=== PATIENT | female | born 1935 | race Caucasian/White ===

== ENCOUNTER 2017-09-24 21:54 | Inpatient (IN) | payer MEDICARE ==
[~2017-09-24] VITALS: Ht 167.6 cm; Wt 119.0 kg
[2017-09-24 22:45] LABS: BASOPHILS # (AUTO) 0.1 (0.0-0.1); BASOPHILS % 0.4 % (0.0-1.0); EOSINOPHILS # (AUTO) 0.1 (0.0-0.4); EOSINOPHILS % 0.4 % (0.0-6.0); HEMATOCRIT 36.8 % (34.2-44.1); HEMOGLOBIN 11.8 g/dL (12.0-16.0); LYMPHOCYTES # (AUTO) 1.3 (1.0-3.2); LYMPHOCYTES % 8.9 % (18.0-39.1); MEAN CORPUSCULAR HEMOGLOBIN 27.8 pg (28-32); MEAN CORPUSCULAR HGB CONC 32.1 g/dL (31-35); MEAN CORPUSCULAR VOLUME 86.6 fL (81-99); MONOCYTES # (AUTO) 0.7 (0.2-0.8); MONOCYTES % 5.2 % (4.4-11.3); NEUTROPHILS # (AUTO) 11.7 (2.1-6.9); NEUTROPHILS % 83.3 % (38.7-80.0); PLATELET COUNT 204 x10e3/uL (140-360); RED BLOOD COUNT 4.25 x10e6/uL (3.6-5.1); RED CELL DISTRIBUTION WIDTH 15.5 % (11.7-14.4)
[2017-09-24 22:53] LABS: INR 1.15; PROTHROMBIN TIME 13.8 seconds (11.9-14.5)
[2017-09-24 22:54] LABS: PARTIAL THROMBOPLASTIN TIME 27.9 seconds (23.8-35.5)
[2017-09-24 23:03] LABS: ALBUMIN 3.8 g/dL (3.5-5.0); ALBUMIN/GLOBULIN RATIO 1.2 (0.8-2.0); ANION GAP 16.4 mmol/L (8-16); CALCIUM 9.5 mg/dL (8.4-10.2); CREATININE, SERUM 1.26 mg/dL (0.57-1.11); POTASSIUM 4.4 mmol/L (3.5-5.1)
[2017-09-24] MEDS ORDERED: TRAMADOL HCL 50 MG TAB ONE (23:06)
[2017-09-24 23:10] LABS: CREATINE KINASE MB 0.9 ng/mL (0-5.0)
--- NOTE | 2017-09-24 23:52 | Diagnostic Imaging Report ---
EXAM: CHEST SINGLE (PORTABLE), AP 1 view INDICATION: Shortness of breath COMPARISON: None FINDINGS: LINES/TUBES: None LUNGS: Bilateral perihilar predominant interstitial and alveolar opacities. PLEURA: Possible small left pleural effusion. HEART AND MEDIASTINUM: The cardiomediastinal silhouette is enlarged with central pulmonary vascular congestion. BONES AND SOFT TISSUES: No acute findings. IMPRESSION: Central pulmonary vascular congestion and early edema. Signed by: Dr. Sabrina Randhawa M.D. on 09/24/2017 11:48 PM
[2017-09-25] MEDS ORDERED: SODIUM CHLORIDE FLUSH 10 ML SYR INJ PRN (00:45)
[2017-09-25] MEDS ORDERED: DEXTROSE 50% SYRINGE 50 ML IV PRN (00:45)
[2017-09-25] MEDS ORDERED: AMLODIPINE-BEN1 EAC5 PO (00:49)
[2017-09-25] MEDS ORDERED: SIMVASTATIN20 MG PO (00:49)
[2017-09-25] MEDS ORDERED: ASPIR 8181 MG PO (00:49)
[2017-09-25] MEDS ORDERED: FUROSEMIDE40 MG PO (00:49)
[2017-09-25] MEDS ORDERED: CARVEDILOL12.5 MG PO (00:49)
[2017-09-25] MEDS ORDERED: NORCO 5-325 TA1 EACH PO (00:49)
[2017-09-25] MEDS ORDERED: GLIMEPIRIDE2 MG PO (00:49)
[2017-09-25] MEDS ORDERED: JANUVIA100 MG PO (00:49)
[2017-09-25] MEDS ORDERED: HYDRALAZINE HCL25 MG PO (00:49)
[2017-09-25] MEDS ORDERED: LEVOTHYROXINE50 MCG PO (00:49)
[2017-09-25] MEDS: FUROSEMIDE INJ 10 MG/ML 4 ML VIAL IV SCH ×3 (02:10→18:20)
[2017-09-25 02:57] LABS: CLARITY,URINE CLEAR (CLEAR); COLOR,URINE YELLOW (YELLOW)
[2017-09-25 02:58] LABS: BILIRUBIN,URINE NEGATIVE (NEGATIVE); KETONES,URINE NEGATIVE (NEGATIVE); LEUKOCYTE ESTERASE ,URINE NEGATIVE (NEGATIVE); NITRITE,URINE NEGATIVE (NEGATIVE); PROTEIN,URINE DIPSTICK 2+ (NEGATIVE); URINE UROBILINOGEN 0.2 mg/dL (0.2 - 1)
[2017-09-25] MEDS ORDERED: TRAMADOL HCL 50 MG TAB PO ONE (03:00)
[2017-09-25] MEDS ORDERED: TRAMADOL HCL 50 MG TAB PO PRN (03:00)
[2017-09-25 03:10] LABS: BACTERIA,URINE RARE /HPF; EPITHELIAL CELLS,URINE RARE /LPF; RBC,URINE 0-5 /HPF (0-5); WBC,URINE (MAN) 0-5 /HPF (0-5)
[2017-09-25] MEDS ORDERED: HYDRALAZINE HCL 20 MG/ML VIAL IV PRN (05:45)
[2017-09-25 06:26] LABS: CREATINE KINASE MB 0.9 ng/mL (0-5.0)
[2017-09-25] MEDS: INSULIN REGULAR, HUMAN 100 UNIT/1 ML 3ML VIAL SQ SCH ×4 (07:00→21:44)
[2017-09-25] MEDS: SITAGLIPTIN 100 MG TAB PO SCH (08:38)
[2017-09-25] MEDS: ASPIRIN 81 MG CHEW TAB PO SCH (08:38)
[2017-09-25] MEDS: GLIMEPIRIDE 2 MG TAB PO SCH ×2 (08:38→18:19)
[2017-09-25] MEDS: HYDRALAZINE HCL 25 MG TAB PO SCH ×3 (08:38→21:47)
[2017-09-25] MEDS: CARVEDILOL 12.5 MG TAB PO SCH ×2 (08:38→18:20)
[2017-09-25] MEDS: LEVOTHYROXINE SODIUM 50 MCG TAB PO SCH (08:38)
--- NOTE | 2017-09-25 09:10 | Diagnostic Imaging Report ---
PROCEDURE: CHEST SINGLE (PORTABLE) COMPARISON: 09/24/2017. INDICATIONS: CHF, SHORTNESS OF BREATH FINDINGS: See conclusion CONCLUSION: Interval improvement in pulmonary edema with reduction in perihilar airspace opacities. Trace left pleural effusion persists with left lower lobe airspace disease likely passive atelectasis. No new consolidations. Regional skeletal structures are intact. Dictated by: Clay Alexander M.D. on 09/25/2017 at 7:19 Electronically approved by: Clay Alexander M.D. on 09/25/2017 at 7:19
--- NOTE | 2017-09-25 10:41 | History and Physical ---
This is coverage for Dr. Mook Alvarez. PRIMARY CARE DOCTOR: Dr. Henao at [facility]. HISTORY: Mr. Barton is a pleasant 82-year-old female with shortness of breath. Shortness of breath occurred without clear incitement. This was on exertion. Onset about 2 days ago. There has been some increasing cough. She claims there is some sputum, but it is mostly clear or white. She came to emergency room, 94% oxygen saturation on room air, 1.3 creatinine, 14 white count. BNP was 149. Urinalysis was unremarkable. Patient had chest x-ray showing mild edema pattern and possible small left pleural effusion. She was admitted. She has already been given diuretics and having large urination. PAST MEDICAL HISTORY: Hypertension, diabetes, CVA with small right-sided hemiparesis, hypothyroid, hyperlipidemia, mild allergies. MEDICATIONS: Medication list reviewed per electronic record. ALLERGIES: CODEINE AND IODINE ARE CITED. SOCIAL HISTORY: No smoking, no drinking, no drugs. 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 FAMILY HISTORY: Noncontributory. REVIEW OF SYSTEMS GENERAL: No weight changes. OPHTHALMOLOGIC: No double vision. ENT: No dry mouth. ENDOCRINE: No recently overactive thyroid that she knows of. PULMONARY: No asthma. CARDIAC: No heart attacks. GI: No constipation. : No blood in urine. DERMATOLOGIC: No rashes. NEUROLOGIC: No seizures. OBJECTIVE VITALS: Afebrile. Vital signs noted per electronic record. GENERAL: No acute distress. Alert, calm, cooperative. HEENT: Normocephalic, atraumatic. NECK: Supple. Throat midline. LUNGS: Bilateral air entry. Few rales throughout. No wheezes. CARDIOVASCULAR: S1, S2. No murmurs, rubs, gallops. ABDOMEN: Soft, nontender. EXTREMITIES: No clubbing, no cyanosis. There is 3+ edema. INTEGUMENT: No rash, no purpura. LABS: Bicarbonate 25. Urinalysis unremarkable. Other labs per record. IMPRESSIONS AND PLAN 1. Abnormal chest radiography, bilateral interstitial opacities, treated for fluid overload. 2. Abnormal chest radiography, bilateral pulmonary opacities, cannot rule out pneumonitis. B-type natriuretic peptide was 149. 3. Obesity. 4. Leg edema. 5. Mild allergies. 6. Hypertension. 7. Diabetes. 8. Cerebrovascular accident and right hemiparesis, mild. 9. Hypothyroidism. 10. Hyperlipidemia. Will get cardiology to review the chance that this is cardiac. If the patient does not respond very rapidly to diuretics, we will escalate treatments for pneumonia. For the meantime, we have chosen close observation. Repeat a chest x-ray in the morning. Patient is recommended for polysomnography to rule out obstructive sleep apnea. Follow along closely and repeat electrolytes tomorrow. Thank you very much, Dr. Henao and Dr. Alvarez, for allowing me the chance to participate in the care of Ms. Barton. Do not hesitate to contact me if I can help in any way. Job#: [id number] JACOB
--- NOTE | 2017-09-25 11:04 | Cardiology Report ---
DATE OF STUDY: ECHOCARDIOGRAM M-MODE: Dilated left atrium. Left ventricular hypertrophy. Normal contractility. Normal mitral and aortic valves. No pericardial effusion. SECTOR SCAN: Dilated left atrium. Left ventricular hypertrophy. Normal contractility. Ejection fraction is approximately 60%. Mitral, aortic and tricuspid valves grossly normal. There is pericardial effusion mostly posterior measuring up to 1.3 cm and less than 0.5 cm anteriorly. There is no evidence of cardiac tamponade. There is a large pleural effusion. CARDIAC DOPPLER STUDY WITH COLOR: Trace mitral and tricuspid regurgitation. Pulmonary artery systolic pressure estimated at 41 mmHg. CONCLUSIONS 1. Moderate pericardial effusion mostly posterior measuring up to 1.3 cm with anterior effusion less than 0.5 cm without any evidence of cardiac tamponade with probable large pleural effusion. 2. Left ventricular hypertrophy with ejection fraction of approximately 60%. 3. Trace mitral regurgitation with dilated left atrium. 4. Trace tricuspid regurgitation with mild pulmonary hypertension. Pulmonary artery systolic pressure estimated at 41 mmHg. Job#: [id number] RI cc: JIMMY MARIANO M.D.
[2017-09-25 11:39] LABS: THYROID STIMULATING HORMONE 0.661 uIU/mL (0.350-4.940)
[2017-09-25 11:48] LABS: CREATINE KINASE MB 0.8 ng/mL (0-5.0)
--- NOTE | 2017-09-25 12:45 | Consultation ---
DATE OF CONSULTATION: September 25, 2017 CARDIOLOGY CONSULTATION ATTENDING PHYSICIAN: Dr. Rocio Mariano. CLINICAL HISTORY: This is an 82-year-old white woman, a patient of [facility], seen in the emergency room at [facility] because of shortness of breath and possible congestive heart failure with chest x-ray showing some pulmonary congestion. This patient has no previous history of coronary artery disease. She denies any previous chest pains or shortness of breath. Over the past month she has had some shortness of breath but it worsened on the day of admission, causing her to come to the emergency room. She has never mentioned this problem to her doctor at [facility]. In the emergency room, her room-air oxygen saturation was 94%. PAST MEDICAL HISTORY: Remarkable for hypertension, diabetes, hypothyroidism, hyperlipidemia. MEDICATIONS AT HOME: Include aspirin 81 mg per day, Coreg 12.5 mg p.o. b.i.d., glimepiride 2 mg p.o. b.i.d., hydralazine 25 mg t.i.d., hydrocodone 5/325 mg p.o. q.6 hours p.r.n., levothyroxine 50 mcg daily, simvastatin 20 mg p.o. daily, Januvia 100 mg p.o. in the morning and 50 mg in the afternoon. She was also taking amlodipine/benazepril 10/40 mg p.o. daily, Lasix 40 mg p.o. daily. PERSONAL AND SOCIAL HISTORY: Denies smoking, drinking. 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 FAMILY HISTORY: Father had a CVA at age 76. Mother has congestive heart failure, age 90. Two brothers in their 80s supposedly have congestive heart failure. REVIEW OF SYSTEMS: Noncontributory. PAST SURGICAL HISTORY: Included skin cancer, cataract surgery. PHYSICAL EXAMINATION: GENERAL: She is obese, alert, coherent. CARDIAC: Jugular veins were not distended. S1 and S2 were distant, regular. LUNGS: Clear. ABDOMEN: Soft. Bowel sounds present. EXTREMITIES: Show no cyanosis, clubbing or edema. Her legs, however, are large due to adiposity. Chest x-ray initially showed congestion, subsequently shows improvement. White count was 14,000, hemoglobin 11.8, platelet count 204,000. BUN 25, creatinine 1.26, GFR was 46, glucose 192. Albumin was 3.8. Urine showed 2+ protein, 1+ blood. Echocardiogram showed a 1.3 cm posterior pericardial effusion, less than half centimeter anteriorly. Ejection fraction was normal, around 60%. No evidence of cardiac tamponade. She also has pleural effusion. IMPRESSION: 1. Shortness of breath of unclear etiology. I do not think this is due to congestive heart failure. She has some degree of anemia, which may contribute with her large weight to her shortness of breath. 2. Pericardial effusion, 1.3 cm posteriorly and less than half centimeter anteriorly, of undetermined etiology, possibly pericarditis. 3. Pleural effusion. 4. Diabetes. 5. Hypertension. 6. Hyperlipidemia. 7. Obesity. 8. Hypothyroidism. 9. Anemia. Hemoglobin 11.8. 10. Proteinuria and microhematuria. 11. Chronic kidney disease. Creatinine 1.26, GFR 46. RECOMMENDATION: Agree with current plans for a trial of diuresis. Workup for pericarditis. Since she has history of arthritis, will check her for rheumatoid arthritis and lupus. Repeat thyroid function studies may be helpful to rule out persistent hypothyroidism. Job#: [id number] EV cc:ROCIO MARIANO M.D.
[2017-09-25 20:08] VITALS: BP 194/77
[2017-09-25 20:09] VITALS: BP 194/77
[2017-09-25] MEDS: HYDROCODONE/APAP 5MG-325MG TAB PO PRN (21:44)
[2017-09-25] MEDS: SIMVASTATIN 20 MG TAB PO SCH (21:47)
[2017-09-26] VITALS (8 sets, daily range): BP systolic 142–174; BP diastolic 65–72
[2017-09-26 05:45] LABS: BASOPHILS % 0.3 % (0.0-1.0); EOSINOPHILS # (AUTO) 0.1 (0.0-0.4); EOSINOPHILS % 0.7 % (0.0-6.0); HEMATOCRIT 35.5 % (34.2-44.1); HEMOGLOBIN 11.3 g/dL (12.0-16.0); LYMPHOCYTES # (AUTO) 1.5 (1.0-3.2); LYMPHOCYTES % 11.8 % (18.0-39.1); MEAN CORPUSCULAR HEMOGLOBIN 28.5 pg (28-32); MEAN CORPUSCULAR HGB CONC 31.8 g/dL (31-35); MEAN CORPUSCULAR VOLUME 89.4 fL (81-99); MONOCYTES % 7.4 % (4.4-11.3); NEUTROPHILS # (AUTO) 10.3 (2.1-6.9); NEUTROPHILS % 78.7 % (38.7-80.0); PLATELET COUNT 191 x10e3/uL (140-360); RED BLOOD COUNT 3.97 x10e6/uL (3.6-5.1); RED CELL DISTRIBUTION WIDTH 15.5 % (11.7-14.4)
[2017-09-26 06:17] LABS: ALBUMIN 3.7 g/dL (3.5-5.0); ALBUMIN/GLOBULIN RATIO 1.4 (0.8-2.0); ANION GAP 16.1 mmol/L (8-16); CALCIUM 9.2 mg/dL (8.4-10.2); CREATININE, SERUM 1.18 mg/dL (0.57-1.11); MAGNESIUM 1.8 MG/DL (1.3-2.1); POTASSIUM 4.1 mmol/L (3.5-5.1)
--- NOTE | 2017-09-26 06:46 | Diagnostic Imaging Report ---
EXAM: CHEST SINGLE (PORTABLE), AP 1 view INDICATION: CHF COMPARISON: AP view of the chest September 25, 2017 FINDINGS: LINES/TUBES: None LUNGS: Vascular congestion and edema. Bibasilar atelectasis PLEURA: Indeterminate for effusion on the left. HEART AND MEDIASTINUM: Stable cardiomegaly and central vascular congestion BONES AND SOFT TISSUES: No acute findings. IMPRESSION: Stable cardiomegaly and edema. Signed by: Dr. Sabrina Randhawa M.D. on 09/26/2017 6:43 AM
[2017-09-26] MEDS: INSULIN REGULAR, HUMAN 100 UNIT/1 ML 3ML VIAL SQ SCH ×4 (07:30→20:20)
[2017-09-26] MEDS: GLIMEPIRIDE 2 MG TAB PO SCH ×2 (09:03→16:41)
[2017-09-26] MEDS: ASPIRIN 81 MG CHEW TAB PO SCH (09:03)
[2017-09-26] MEDS: CARVEDILOL 12.5 MG TAB PO SCH ×2 (09:03→16:41)
[2017-09-26] MEDS: FUROSEMIDE INJ 10 MG/ML 4 ML VIAL IV SCH ×2 (09:03→16:41)
[2017-09-26] MEDS: HYDRALAZINE HCL 25 MG TAB PO SCH ×3 (09:03→20:19)
[2017-09-26] MEDS: LEVOTHYROXINE SODIUM 50 MCG TAB PO SCH (09:03)
[2017-09-26] MEDS: SITAGLIPTIN 100 MG TAB PO SCH (09:04)
[2017-09-26] MEDS ORDERED: LACTULOSE SYRUP 20 GM/30 ML UDC PO PRN (13:00)
[2017-09-26] MEDS: CEFTRIAXONE SOD 1 GM VIAL IV SCH (13:39)
[2017-09-26] MEDS: DOXYCYCLINE 100MG/NS 100ML 100 ML IV SCH (13:39)
--- NOTE | 2017-09-26 15:57 | Diagnostic Imaging Report ---
PROCEDURE: CT CHEST WITHOUT CONTRAST CT scan of the chest WITHOUT intravenous contrast, using standard protocol. TECHNIQUE: The chest was scanned utilizing a multidetector helical scanner from the apex to the level of the adrenal glands. No IV contrast was administered. Coronal and sagittal multiplanar reformations were obtained. DLP: 570.3 mGy-cm COMPARISON: None. INDICATIONS: CHF FINDINGS: Lungs and Airways: Smooth lobular septal thickening with scattered groundglass opacities likely representing edema. Mild lower lobe and lingular atelectasis. Right upper lobe 0.8 cm nodule versus nodular atelectasis (series 3 image 16). Pleura: Small pleural effusions, left greater than right. Heart and mediastinum: Mildly enlarged upper right paratracheal node (series 2 image 18) measuring 1.1 cm. No additional mediastinal, hilar or axillary lymphadenopathy is seen. Cardiomegaly. Hypoattenuation in the blood pool suggestive of anemia. Small pericardial effusion. Coronary artery and aortic calcifications. Soft tissues: Normal. Abdomen: Limited views of the upper abdomen show no abnormality within the visualized liver, spleen, pancreas, or kidneys. Round 1.4 cm calcification in the splenic hilum may represent a calcified splenic artery aneurysm. The adrenal glands are normal. Bones: Age indeterminate T12 compression deformity with approximately 60% height loss and osseous retropulsion into the spinal canal. Diffuse osseus demineralization. IMPRESSION: 1. Cardiomegaly with interstitial edema, small pleural effusions, and small pericardial effusion. 2. Right upper lobe 8 mm nodule versus nodular atelectasis. Recommend follow up chest CT in 3 months. 3. Slightly enlarged 1.1 cm upper right paratracheal node, nonspecific but may be reactive. Attention on follow up exam. 4. T12 compression deformity with approximately 60% height loss and osseous retropulsion into the spinal canal. Dictated by: Ivan Noyola M.D. on 09/26/2017 at 16:02 Electronically approved by: Ivan Noyola M.D. on 09/26/2017 at 16:02
[2017-09-26] MEDS: DOCUSATE SODIUM 100 MG CAP PO SCH (16:41)
[2017-09-26] MEDS: HYDROCODONE/APAP 5MG-325MG TAB PO PRN (18:22)
[2017-09-26] MEDS: SIMVASTATIN 20 MG TAB PO SCH (20:19)
[2017-09-27] VITALS: BP 138/65
[2017-09-27] MEDS: DOXYCYCLINE 100MG/NS 100ML 100 ML IV SCH ×2 (01:22→14:00)
--- NOTE | 2017-09-27 02:40 | Progress Note ---
DATE: September 26, 2017 INTERNAL MEDICINE PROGRESS NOTE This is coverage for Dr. Mook Alvarez. SUBJECTIVE: Ms. Barton was seen and examined at bedside. She is eating very well. She had urine output at least 2 liters output plus. Chest x-ray with stable edema pattern. 94% oxygen saturation on 2 liters per minute by nasal cannula. Puente is in place due to the high amount of urine that she is peeing out. She is able to walk to the restroom with standby assist and with use of a walker. REVIEW OF SYSTEMS: No bleeding, no rash. OBJECTIVE: VITAL SIGNS: Afebrile, vital signs noted per electronic record. GENERAL: In no acute distress, alert and calm. HEENT: Normocephalic, atraumatic. NECK: Supple. Throat midline. LUNGS: Bilateral air entry, decreased breath sounds throughout. CARDIOVASCULAR: S1, S2. No murmurs, rubs, or gallops. ABDOMEN: Soft, nontender. EXTREMITIES: No clubbing, no cyanosis, there is some 2+ edema to the leg. INTEGUMENT: No rash, no purpura. LABS: 4.1 potassium, 28 BUN, 1.2 creatinine. 13 white count, 36 hematocrit. IMPRESSION AND PLAN: 1. Persistent bilateral infiltrates, treat as possible pneumonia. 2. Persistent infiltrates, treat as fluid overload. 3. Hypertension. 4. Diabetes. 5. Cerebrovascular accident with residual small right-sided hemiparesis. 6. Hypothyroidism. 7. Hyperlipidemia. 8. Mild allergies. 9. Obesity. Continue current treatment at this time. Continue more diuretics. Repeat electrolytes tomorrow while on diuretics. Check a computerized tomography chest given the refractoriness of the infiltrates. We hope for more progress with time. Continue to control blood pressure. Discontinue Puente as the urine output starts to decrease later on. Job#: [id number]
[2017-09-27 04:51] VITALS: BP 132/63
[2017-09-27 05:13] LABS: BASOPHILS % 0.3 % (0.0-1.0); EOSINOPHILS # (AUTO) 0.4 (0.0-0.4); EOSINOPHILS % 3.4 % (0.0-6.0); HEMATOCRIT 33.4 % (34.2-44.1); HEMOGLOBIN 10.3 g/dL (12.0-16.0); LYMPHOCYTES # (AUTO) 1.6 (1.0-3.2); LYMPHOCYTES % 15.5 % (18.0-39.1); MEAN CORPUSCULAR HEMOGLOBIN 27.5 pg (28-32); MEAN CORPUSCULAR HGB CONC 30.8 g/dL (31-35); MEAN CORPUSCULAR VOLUME 89.3 fL (81-99); MONOCYTES # (AUTO) 0.9 (0.2-0.8); MONOCYTES % 8.9 % (4.4-11.3); NEUTROPHILS # (AUTO) 7.5 (2.1-6.9); PLATELET COUNT 181 x10e3/uL (140-360); RED BLOOD COUNT 3.74 x10e6/uL (3.6-5.1); RED CELL DISTRIBUTION WIDTH 15.6 % (11.7-14.4)
[2017-09-27 05:40] LABS: ANION GAP 13.9 mmol/L (8-16); CALCIUM 8.5 mg/dL (8.4-10.2); CREATININE, SERUM 1.21 mg/dL (0.57-1.11); MAGNESIUM 1.8 MG/DL (1.3-2.1); POTASSIUM 3.9 mmol/L (3.5-5.1)
[2017-09-27] MEDS: INSULIN REGULAR, HUMAN 100 UNIT/1 ML 3ML VIAL SQ SCH ×4 (07:24→20:53)
[2017-09-27] MEDS: FUROSEMIDE INJ 10 MG/ML 4 ML VIAL IV SCH ×2 (08:30→16:20)
[2017-09-27] MEDS: GLIMEPIRIDE 2 MG TAB PO SCH ×2 (08:30→16:20)
[2017-09-27] MEDS: LEVOTHYROXINE SODIUM 50 MCG TAB PO SCH (08:30)
[2017-09-27] MEDS: HYDRALAZINE HCL 25 MG TAB PO SCH ×3 (08:31→20:53)
[2017-09-27] MEDS: DOCUSATE SODIUM 100 MG CAP PO SCH ×3 (08:31→16:12)
[2017-09-27] MEDS: SITAGLIPTIN 100 MG TAB PO SCH (08:31)
[2017-09-27] MEDS: ASPIRIN 81 MG CHEW TAB PO SCH (08:31)
[2017-09-27] MEDS: CARVEDILOL 12.5 MG TAB PO SCH ×2 (08:31→16:20)
[2017-09-27 09:19] VITALS: BP 151/67
[2017-09-27] MEDS: CEFTRIAXONE SOD 1 GM VIAL IV SCH (12:04)
[2017-09-27] MEDS: AMLODIPINE BESYLATE 5 MG TAB PO SCH (12:04)
[2017-09-27 20:00] VITALS: BP 159/82
[2017-09-27] MEDS: SIMVASTATIN 20 MG TAB PO SCH (20:53)
[2017-09-27] MEDS ORDERED: FUROSEMIDE INJ 10 MG/ML 4 ML VIAL IV ONE (23:00)
[2017-09-28 00:05] VITALS: BP 163/67
--- NOTE | 2017-09-28 01:03 | Progress Note ---
DATE: September 27, 2017 INTERNAL MEDICINE PROGRESS NOTE This is coverage for Dr. Alvarez. SUBJECTIVE: Ms. Barton was seen and examined at bedside. She was able to walk today. She feels almost normal, although she still has low functional endurance. 87% oxygen saturation on room air FiO2. Puente in place due to urinary output. CT of chest was done, which demonstrated interstitial edema, small pleural effusion, and small pericardial effusion, most suggestive of fluid overload, although pneumonia cannot be ruled out. There is a right upper lobe 8-mm nodule versus nodular atelectasis and followup chest CT in 3 months recommended. Enlarged 1.1-cm right upper paratracheal node, T12 compression deformity with 60% height loss and osseous retropulsion spinal canal. REVIEW OF SYSTEMS: No headaches, no bleeding. OBJECTIVE VITAL SIGNS: Afebrile. Vital signs noted per electronic record. GENERAL: In no acute distress, alert, calm. HEENT: Normocephalic, atraumatic. NECK: Supple. Throat midline. LUNGS: Bilateral air entry, few rhonchi. CARDIOVASCULAR: S1, S2. No murmurs, rubs or gallops. ABDOMEN: Soft, obese. EXTREMITIES: No clubbing, no cyanosis. There is 2+ edema. INTEGUMENT: No rash, no purpura. LABS: 11 white count, 33 hematocrit, 181,000 platelets. 3.9 potassium, 13 BUN, 1.2 creatinine. BENOIT screen is negative. IMPRESSIONS AND PLAN 1. Shortness of breath, multifactorial. 2. Abnormal chest radiography, interstitial edema, fluid overload. 3. Abnormal chest radiography, possible pneumonitis. 4. Pericardial effusion, moderate. 5. Diabetes. 6. Hypertension. 7. Hyperlipidemia. 8. Obesity, suspect sleep apnea. 9. Hypothyroidism. 10. Anemia. 11. Chronic kidney disease. 12. Hypoxemia. Continue current diuretics. In the mean time, follow up with antibiotics for possible pneumonia. If patient's chest x-ray improves again tomorrow, will consider discharging patient. Patient will get PT evaluation and consult. 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 Follow up rheumatoid factor and PCP antibody. Job#: [id number] CQ
[2017-09-28] MEDS: DOXYCYCLINE 100MG/NS 100ML 100 ML IV SCH ×2 (02:10→13:45)
[2017-09-28 05:16] VITALS: BP 143/61
[2017-09-28 05:18] LABS: BASOPHILS % 0.3 % (0.0-1.0); EOSINOPHILS # (AUTO) 0.3 (0.0-0.4); EOSINOPHILS % 3.2 % (0.0-6.0); HEMATOCRIT 32.6 % (34.2-44.1); HEMOGLOBIN 10.1 g/dL (12.0-16.0); LYMPHOCYTES # (AUTO) 1.6 (1.0-3.2); LYMPHOCYTES % 15.8 % (18.0-39.1); MEAN CORPUSCULAR HEMOGLOBIN 27.6 pg (28-32); MEAN CORPUSCULAR VOLUME 89.1 fL (81-99); MONOCYTES # (AUTO) 0.9 (0.2-0.8); MONOCYTES % 8.9 % (4.4-11.3); NEUTROPHILS # (AUTO) 7.3 (2.1-6.9); PLATELET COUNT 173 x10e3/uL (140-360); RED BLOOD COUNT 3.66 x10e6/uL (3.6-5.1); RED CELL DISTRIBUTION WIDTH 15.4 % (11.7-14.4)
[2017-09-28 05:40] LABS: ANION GAP 14.9 mmol/L (8-16); CALCIUM 8.6 mg/dL (8.4-10.2); CREATININE, SERUM 1.15 mg/dL (0.57-1.11); MAGNESIUM 1.8 MG/DL (1.3-2.1); POTASSIUM 3.9 mmol/L (3.5-5.1)
[2017-09-28] MEDS ORDERED: LEVOTHYROXINE SODIUM 100 MCG TAB PO SCH (06:00)
--- NOTE | 2017-09-28 06:47 | Diagnostic Imaging Report ---
EXAM: CHEST SINGLE (PORTABLE), AP 1 view INDICATION: CHF COMPARISON: AP view of the chest September 26, 2017 FINDINGS: LINES/TUBES: None LUNGS: Vascular congestion and edema PLEURA: Indeterminate for effusion on the left HEART AND MEDIASTINUM: Stable cardiomegaly BONES AND SOFT TISSUES: No acute findings. IMPRESSION: No interval change. Signed by: Dr. Sabrina Randhawa M.D. on 09/28/2017 6:44 AM
[2017-09-28] MEDS: INSULIN REGULAR, HUMAN 100 UNIT/1 ML 3ML VIAL SQ SCH ×2 (07:30→11:30)
[2017-09-28 08:11] VITALS: BP 147/51
[2017-09-28] MEDS: CARVEDILOL 12.5 MG TAB PO SCH ×2 (09:00→17:06)
[2017-09-28] MEDS: AMLODIPINE BESYLATE 5 MG TAB PO SCH (09:01)
[2017-09-28] MEDS: DOCUSATE SODIUM 100 MG CAP PO SCH ×2 (09:01→17:05)
[2017-09-28] MEDS: FUROSEMIDE INJ 10 MG/ML 4 ML VIAL IV SCH ×2 (09:01→17:05)
[2017-09-28] MEDS: ASPIRIN 81 MG CHEW TAB PO SCH (09:01)
[2017-09-28] MEDS: GLIMEPIRIDE 2 MG TAB PO SCH ×2 (09:01→17:05)
[2017-09-28] MEDS: SITAGLIPTIN 100 MG TAB PO SCH (09:01)
[2017-09-28] MEDS: HYDRALAZINE HCL 25 MG TAB PO SCH ×2 (09:01→15:55)
[2017-09-28 11:58] VITALS: BP 154/65
[2017-09-28 12:47] VITALS: BP 154/65
[2017-09-28] MEDS: CEFTRIAXONE SOD 1 GM VIAL IV SCH (13:11)
[2017-09-28] MEDS ORDERED: FUROSEMIDE40 MG PO (13:42)
[2017-09-28] MEDS ORDERED: CEFUROXIME250 MG PO (13:51)
[2017-09-28] MEDS ORDERED: doxycycline PO (13:51)
[2017-09-28 17:02] VITALS: BP 172/68
--- NOTE | 2017-09-29 04:21 | Discharge Summary ---
HOSPITAL DOCTOR: Dr. Mook Alvarez. OUTPATIENT PHYSICIAN: Dr. Long, [facility]. PRIMARY DIAGNOSES 1. Fluid overload. 2. Pneumonia. HOSPITAL COURSE: An 82-year-old female with 2 days of shortness of breath and coughing. 94% oxygen saturation on room air. Creatinine 1.3 on admit and BNP level is 149. Urinalysis unremarkable and chest x-ray with mild edema pattern and possible small left pleural effusion. The patient was started on diuretic. She was admitted. Due to poor progress by day 2, she was started on antibiotics. The patient with CT scan that could have been consistent with fluid overload mostly. Pneumonitis was not ruled out. There was also a 1.1-cm lymph node and 8- to 9-mm lung nodule. She was given a copy of her CT chest. Furthermore, echocardiogram showed a 1.3-cm posterior pericardial effusion. As she was diuresed, x-ray did clear up a little bit on the additional pneumonia treatment as well. White count went from 14,000 to 10.3 by discharge. Creatinine is 1.1 on discharge. Thyroid function tests were normal. CK level was 9, albumin was 3.7. At this point, the patient was ambulating, but as she lives with her , it was recommended for a home health and home therapy. The patient with oxygen saturation of 87% on room air on walking, although 90% on room air at rest oxygen saturation was noted. She was allowed for discharge and outpatient followup. FOLLOWUP: With cardiology including serial followup echocardiogram for effusion. Follow up with Dr. Long at [facility]. DIET: Cardiac diet. MEDICATIONS AT DISCHARGE: Please see medication record for details. We gave her cephalosporin and doxycycline antibiotic. Lasix was increased from 40 mg a day to 60 mg among medicines. Other medicines per record. ACTIVITY: As tolerated. Greater than 30 minutes in care and coordination for discharge. VIVIEN CHINCHILLA MD Job#: [id number]
== END 2017-09-28 17:50 | disposition home or self-care (01) | DRG 314 ==
LOC: ER 21:54 → ERHOLD 09-25 01:09 → MED/SURG2 09-25 20:10
PROVIDERS: ADMIT Internal Medicine; ATTEND Internal Medicine
DX: I31.3 Pericardial effusion (noninflammatory) (principal); J18.9 Pneumonia, unspecified organism; Z68.41 Body mass index [BMI] 40.0-44.9, adult; J90 Pleural effusion, not elsewhere classified; I69.351 Hemiplegia and hemiparesis following cerebral infarction affecting right dominant side; I12.9 Hypertensive chronic kidney disease with stage 1 through stage 4 chronic kidney disease, or unspecified chronic kidney disease; I50.9 Heart failure, unspecified; E66.01 Morbid (severe) obesity due to excess calories; R80.9 Proteinuria, unspecified; E11.22 Type 2 diabetes mellitus with diabetic chronic kidney disease; N18.9 Chronic kidney disease, unspecified; D64.9 Anemia, unspecified; R31.29 Other microscopic hematuria; E11.649 Type 2 diabetes mellitus with hypoglycemia without coma; Z79.4 Long term (current) use of insulin; R91.1 Solitary pulmonary nodule; J30.9 Allergic rhinitis, unspecified; R09.02 Hypoxemia; G47.33 Obstructive sleep apnea (adult) (pediatric)
CPT/HCPCS: 36415; 51700; 71045; 71250; 80048; 80053; 81001; 82550; 82553; 82948; 83735; 83880; 84436; 84443; 84479; 84484; 85025; 85379; 85610; 85651; 85730; 86039; 86200; 86431; 93005; 93306; 96374; 99285; J0360; J0696; J1940

== ENCOUNTER 2019-12-24 13:59 | Inpatient (IN) | payer MEDICARE ==
[~2019-12-24] VITALS: Ht 167.6 cm; Wt 106.6 kg
[~2019-12-24 13:59] MED LIST: AMLODIPINE-BEN1 EAC5 PO; ASPIR 8181 MG PO; CARVEDILOL12.5 MG PO; CEFUROXIME250 MG PO; FUROSEMIDE40 MG PO; GLIMEPIRIDE2 MG PO; HYDRALAZINE HCL25 MG PO; JANUVIA100 MG PO; LEVOTHYROXINE50 MCG PO; NORCO 5-325 TA1 EACH PO; SIMVASTATIN20 MG PO; doxycycline PO
[2019-12-24 15:07] LABS: BASOPHILS # (AUTO) 0.1 (0.0-0.1); BASOPHILS % 0.5 % (0.0-1.0); EOSINOPHILS # (AUTO) 0.2 (0.0-0.4); EOSINOPHILS % 2.1 % (0.0-6.0); HEMOGLOBIN 10.5 g/dL (12.0-16.0); LYMPHOCYTES # (AUTO) 0.8 (1.0-3.2); LYMPHOCYTES % 7.4 % (18.0-39.1); MEAN CORPUSCULAR HEMOGLOBIN 26.5 pg (28-32); MEAN CORPUSCULAR HGB CONC 30.9 g/dL (31-35); MEAN CORPUSCULAR VOLUME 85.9 fL (81-99); MONOCYTES # (AUTO) 0.7 (0.2-0.8); MONOCYTES % 7.3 % (4.4-11.3); NEUTROPHILS # (AUTO) 7.8 (2.1-6.9); NEUTROPHILS % 77.4 % (38.7-80.0); PLATELET COUNT 221 x10e3/uL (140-360); RED BLOOD COUNT 3.96 x10e6/uL (3.6-5.1); RED CELL DISTRIBUTION WIDTH 18.9 % (11.7-14.4)
[2019-12-24 15:13] LABS: INR 1.04; PROTHROMBIN TIME 14.1 seconds (11.9-14.5)
[2019-12-24 15:14] LABS: PARTIAL THROMBOPLASTIN TIME 32.6 seconds (23.8-35.5)
[2019-12-24 15:24] LABS: ALBUMIN 3.2 g/dL (3.5-5.0); ALBUMIN/GLOBULIN RATIO 1.2 (0.8-2.0); ANION GAP 14.2 mmol/L (8-16); CALCIUM 8.6 mg/dL (8.4-10.2); CREATININE, SERUM 1.4 mg/dL (0.57-1.11); POTASSIUM 3.2 mmol/L (3.5-5.1)
[2019-12-24 15:34] LABS: CREATINE KINASE MB 1.5 ng/mL (0-5.0)
[2019-12-24 16:58] LABS: BILIRUBIN,URINE NEGATIVE (NEGATIVE); CLARITY,URINE CLEAR (CLEAR); COLOR,URINE YELLOW (YELLOW); KETONES,URINE NEGATIVE (NEGATIVE); LEUKOCYTE ESTERASE ,URINE NEGATIVE (NEGATIVE); NITRITE,URINE NEGATIVE (NEGATIVE); PROTEIN,URINE DIPSTICK 2+ (NEGATIVE); URINE UROBILINOGEN 0.2 mg/dL (0.2 - 1)
[2019-12-24 17:04] LABS: BACTERIA,URINE FEW /HPF; EPITHELIAL CELLS,URINE FEW /LPF; TRANSITIONAL EPI CELLS,URINE FEW; YEAST,URINE MODERATE
[2019-12-24] MEDS ORDERED: FUROSEMIDE INJ 10 MG/ML 4 ML VIAL IV ONE (17:30)
[2019-12-24] MEDS ORDERED: HYDROCODONE/APAP 5MG-325MG TAB PO PRN (19:15)
[2019-12-24] MEDS ORDERED: DEXTROSE 50% SYRINGE 50 ML IV PRN (19:15)
[2019-12-24] MEDS ORDERED: GLIMEPIRIDE 2 MG TAB PO SCH (20:00)
[2019-12-24] MEDS: CARVEDILOL 12.5 MG TAB PO SCH (20:04)
[2019-12-24] MEDS: HYDRALAZINE HCL 25 MG TAB PO SCH (20:50)
[2019-12-24] MEDS: SIMVASTATIN 20 MG TAB PO SCH (20:52)
[2019-12-24] MEDS: NYSTATIN 15 GM POWDER UD BTL TOP SCH (20:52)
[2019-12-24] MEDS ORDERED: INSULIN REGULAR, HUMAN 100 UNIT/1 ML 3ML VIAL SQ SCH (21:00)
[2019-12-24 21:35] VITALS: BP 112/48
[2019-12-24 22:26] VITALS: BP 112/48
[2019-12-24 22:37] VITALS: BP 112/48
[2019-12-24 23:56] VITALS: BP 131/94
[2019-12-25] VITALS (7 sets, daily range): BP systolic 105–182; BP diastolic 50–65
[2019-12-25 05:32] LABS: BASOPHILS % 0.5 % (0.0-1.0); EOSINOPHILS # (AUTO) 0.2 (0.0-0.4); EOSINOPHILS % 2.4 % (0.0-6.0); HEMATOCRIT 33.1 % (34.2-44.1); HEMOGLOBIN 10.5 g/dL (12.0-16.0); LYMPHOCYTES % 12.9 % (18.0-39.1); MEAN CORPUSCULAR HEMOGLOBIN 27.3 pg (28-32); MEAN CORPUSCULAR HGB CONC 31.7 g/dL (31-35); MEAN CORPUSCULAR VOLUME 86.2 fL (81-99); MONOCYTES # (AUTO) 0.8 (0.2-0.8); MONOCYTES % 10.6 % (4.4-11.3); NEUTROPHILS # (AUTO) 5.4 (2.1-6.9); NEUTROPHILS % 68.5 % (38.7-80.0); PLATELET COUNT 199 x10e3/uL (140-360); RED BLOOD COUNT 3.84 x10e6/uL (3.6-5.1); RED CELL DISTRIBUTION WIDTH 18.9 % (11.7-14.4)
[2019-12-25 06:08] LABS: ALBUMIN 2.8 g/dL (3.5-5.0); ALBUMIN/GLOBULIN RATIO 1.1 (0.8-2.0); ALKALINE PHOSPHATASE 72 IU/L (40-150); ANION GAP 13.1 mmol/L (8-16); BLOOD UREA NITROGEN 31 mg/dL (7-26); BUN/CREATININE RATIO 27 (6-25); CALCIUM 8.3 mg/dL (8.4-10.2); CARBON DIOXIDE 27 mmol/L (22-29); CHLORIDE 106 mmol/L (98-107); CREATININE, SERUM 1.13 mg/dL (0.57-1.11); EST GLOMERULAR FILTRATION RATE 46 ML/MIN (60-); GLUCOSE 101 mg/dL (74-118); POTASSIUM 3.1 mmol/L (3.5-5.1); SODIUM 143 mmol/L (136-145)
[2019-12-25 06:11] LABS: ALANINE AMINOTRANSFERASE < 6 IU/L (0-55)
[2019-12-25 06:30] LABS: CREATINE KINASE MB 2.1 ng/mL (0-5.0)
[2019-12-25] MEDS ORDERED: LEVOTHYROXINE SODIUM 100 MCG TAB PO SCH ×3 (07:30→10:30)
[2019-12-25 07:48] LABS: EOSINOPHILS % (MANUAL) 1 % (0-7); LYMPHOCYTES % (MANUAL) 9 % (19-48); MONOCYTES % (MANUAL) 11 % (3.4-9.0); NEUTROPHILS % (MANUAL) 79 % (40-74)
[2019-12-25 07:49] LABS: ANISOCYTOSIS MODERATE; OVALOCYTES FEW; PLATELET ESTIMATE ADEQUATE; PLATELET MORPHOLOGY COMMENT NORMAL; RBC MORPHOLOGY COMMENT ABNORMAL
[2019-12-25] MEDS: CARVEDILOL 12.5 MG TAB PO SCH (08:22)
[2019-12-25] MEDS ORDERED: FUROSEMIDE 40 MG TAB PO SCH (09:00)
[2019-12-25] MEDS: HYDRALAZINE HCL 25 MG TAB PO SCH ×3 (09:49→21:34)
[2019-12-25] MEDS: FUROSEMIDE INJ 10 MG/ML 4 ML VIAL IV SCH (09:49)
[2019-12-25] MEDS: NYSTATIN 15 GM POWDER UD BTL TOP SCH ×2 (09:49→16:08)
[2019-12-25] MEDS: ASPIRIN 81 MG CHEW TAB PO SCH (09:49)
[2019-12-25 12:31] LABS: CREATINE KINASE MB 2.1 ng/mL (0-5.0)
[2019-12-25] MEDS ORDERED: POTASSIUM CHLORIDE 10MEQ EA PO ONE (15:25)
[2019-12-25] MEDS ORDERED: ATROPINE SULFATE 1 MG/ML VIAL IV PRN (18:45)
[2019-12-25] MEDS ORDERED: SODIUM CHLORIDE 0.9% 250ML 250 ML ONE (21:26)
[2019-12-25] MEDS: ENOXAPARIN SOD INJ 40 MG/0.4 ML SYR SC SCH (21:33)
[2019-12-25] MEDS: CEFTRIAXONE SOD 1 GM/NS 50 ML 50 ML IV SCH (21:33)
[2019-12-25] MEDS: LEVOTHYROXINE SODIUM 100 MCG TAB PO SCH (21:34)
[2019-12-25] MEDS: SIMVASTATIN 20 MG TAB PO SCH (21:34)
[2019-12-25] MEDS: ACETAMINOPHEN 325 MG TAB PO PRN (22:12)
[2019-12-26] VITALS (9 sets, daily range): BP systolic 148–176; BP diastolic 43–74
[2019-12-26 05:54] LABS: BASOPHILS # (AUTO) 0.1 (0.0-0.1); BASOPHILS % 0.6 % (0.0-1.0); EOSINOPHILS # (AUTO) 0.2 (0.0-0.4); EOSINOPHILS % 1.5 % (0.0-6.0); HEMATOCRIT 33.9 % (34.2-44.1); HEMOGLOBIN 10.8 g/dL (12.0-16.0); LYMPHOCYTES # (AUTO) 0.8 (1.0-3.2); LYMPHOCYTES % 7.2 % (18.0-39.1); MEAN CORPUSCULAR HEMOGLOBIN 27.6 pg (28-32); MEAN CORPUSCULAR HGB CONC 31.9 g/dL (31-35); MEAN CORPUSCULAR VOLUME 86.5 fL (81-99); MONOCYTES % 8.4 % (4.4-11.3); NEUTROPHILS % 77.7 % (38.7-80.0); PLATELET COUNT 206 x10e3/uL (140-360); RED BLOOD COUNT 3.92 x10e6/uL (3.6-5.1); RED CELL DISTRIBUTION WIDTH 19.2 % (11.7-14.4)
[2019-12-26 06:17] LABS: ANION GAP 13.5 mmol/L (8-16); CALCIUM 8.1 mg/dL (8.4-10.2); CREATININE, SERUM 1.15 mg/dL (0.57-1.11); POTASSIUM 3.5 mmol/L (3.5-5.1)
[2019-12-26] MEDS: NYSTATIN 15 GM POWDER UD BTL TOP SCH ×2 (08:56→16:59)
[2019-12-26] MEDS: FUROSEMIDE INJ 10 MG/ML 4 ML VIAL IV SCH (08:56)
[2019-12-26] MEDS: HYDRALAZINE HCL 25 MG TAB PO SCH ×3 (08:56→20:01)
[2019-12-26] MEDS: ASPIRIN 81 MG CHEW TAB PO SCH (08:56)
[2019-12-26] MEDS: ACETAMINOPHEN 325 MG TAB PO PRN ×2 (09:18→23:10)
[2019-12-26] MEDS ORDERED: LIDOCAINE 1% W/EPINEPHRINE 20 ML VIAL ONE ×2 (09:47→09:54)
[2019-12-26] MEDS: CEFTRIAXONE SOD 1 GM/NS 50 ML 50 ML IV SCH (16:59)
[2019-12-26] MEDS: ENOXAPARIN SOD INJ 40 MG/0.4 ML SYR SC SCH (16:59)
[2019-12-26] MEDS: LEVOTHYROXINE SODIUM 100 MCG TAB PO SCH (20:01)
[2019-12-26] MEDS: SIMVASTATIN 20 MG TAB PO SCH (20:02)
[2019-12-26] MEDS ORDERED: FUROSEMIDE INJ 10 MG/ML 4 ML VIAL IV ONE (20:15)
[2019-12-27] VITALS (10 sets, daily range): BP systolic 114–168; BP diastolic 50–65
[2019-12-27] MEDS: FUROSEMIDE INJ 10 MG/ML 4 ML VIAL IV SCH ×2 (08:44→16:00)
[2019-12-27] MEDS: ASPIRIN 81 MG CHEW TAB PO SCH (08:45)
[2019-12-27] MEDS: HYDRALAZINE HCL 25 MG TAB PO SCH ×3 (08:45→21:33)
[2019-12-27] MEDS: NYSTATIN 15 GM POWDER UD BTL TOP SCH ×2 (08:45→16:00)
[2019-12-27] MEDS: CEFEPIME 1GM/NS 0.9% 50 ML 50 ML IV SCH ×2 (12:43→23:22)
[2019-12-27] MEDS: ENOXAPARIN SOD INJ 40 MG/0.4 ML SYR SC SCH (16:00)
[2019-12-27] MEDS: ACETAMINOPHEN 325 MG TAB PO PRN (20:20)
[2019-12-27] MEDS: SIMVASTATIN 20 MG TAB PO SCH (21:33)
[2019-12-27] MEDS: LEVOTHYROXINE SODIUM 100 MCG TAB PO SCH (21:33)
[2019-12-28] VITALS (7 sets, daily range): BP systolic 153–174; BP diastolic 55–70
[2019-12-28] MEDS: ACETAMINOPHEN 325 MG TAB PO PRN (04:10)
[2019-12-28 06:15] LABS: BASOPHILS % 0.2 % (0.0-1.0); EOSINOPHILS # (AUTO) 0.4 (0.0-0.4); EOSINOPHILS % 3.4 % (0.0-6.0); HEMATOCRIT 36.9 % (34.2-44.1); HEMOGLOBIN 11.1 g/dL (12.0-16.0); LYMPHOCYTES # (AUTO) 1.1 (1.0-3.2); LYMPHOCYTES % 10.1 % (18.0-39.1); MEAN CORPUSCULAR HEMOGLOBIN 25.8 pg (28-32); MEAN CORPUSCULAR HGB CONC 30.1 g/dL (31-35); MEAN CORPUSCULAR VOLUME 85.8 fL (81-99); MONOCYTES # (AUTO) 0.9 (0.2-0.8); MONOCYTES % 7.9 % (4.4-11.3); NEUTROPHILS # (AUTO) 8.1 (2.1-6.9); NEUTROPHILS % 72.2 % (38.7-80.0); PLATELET COUNT 214 x10e3/uL (140-360); RED CELL DISTRIBUTION WIDTH 19.9 % (11.7-14.4)
[2019-12-28 06:32] LABS: ANION GAP 13.7 mmol/L (8-16); CALCIUM 8.3 mg/dL (8.4-10.2); CREATININE, SERUM 0.97 mg/dL (0.57-1.11); POTASSIUM 3.7 mmol/L (3.5-5.1)
[2019-12-28] MEDS: NYSTATIN 15 GM POWDER UD BTL TOP SCH ×2 (09:43→16:10)
[2019-12-28] MEDS: HYDRALAZINE HCL 25 MG TAB PO SCH ×3 (09:43→20:52)
[2019-12-28] MEDS: ASPIRIN 81 MG CHEW TAB PO SCH (09:43)
[2019-12-28] MEDS: FUROSEMIDE INJ 10 MG/ML 4 ML VIAL IV SCH ×2 (10:38→16:10)
[2019-12-28] MEDS: CEFEPIME 1GM/NS 0.9% 50 ML 50 ML IV SCH ×2 (11:46→23:00)
[2019-12-28] MEDS: ENOXAPARIN SOD INJ 40 MG/0.4 ML SYR SC SCH (16:10)
[2019-12-28] MEDS: LEVOTHYROXINE SODIUM 100 MCG TAB PO SCH (20:52)
[2019-12-28] MEDS: SIMVASTATIN 20 MG TAB PO SCH (20:53)
[2019-12-29] VITALS (8 sets, daily range): BP systolic 152–175; BP diastolic 54–64
[2019-12-29 06:26] LABS: BASOPHILS # (AUTO) 0.1 (0.0-0.1); EOSINOPHILS # (AUTO) 0.4 (0.0-0.4); EOSINOPHILS % 4.4 % (0.0-6.0); HEMATOCRIT 35.8 % (34.2-44.1); HEMOGLOBIN 10.8 g/dL (12.0-16.0); LYMPHOCYTES # (AUTO) 1.1 (1.0-3.2); LYMPHOCYTES % 13.7 % (18.0-39.1); MEAN CORPUSCULAR HEMOGLOBIN 26.2 pg (28-32); MEAN CORPUSCULAR HGB CONC 30.2 g/dL (31-35); MEAN CORPUSCULAR VOLUME 86.9 fL (81-99); MONOCYTES # (AUTO) 0.7 (0.2-0.8); MONOCYTES % 8.5 % (4.4-11.3); NEUTROPHILS # (AUTO) 5.3 (2.1-6.9); NEUTROPHILS % 66.4 % (38.7-80.0); PLATELET COUNT 175 x10e3/uL (140-360); RED BLOOD COUNT 4.12 x10e6/uL (3.6-5.1)
[2019-12-29 06:59] LABS: ANION GAP 14.9 mmol/L (8-16); CALCIUM 8.3 mg/dL (8.4-10.2); CREATININE, SERUM 0.98 mg/dL (0.57-1.11); POTASSIUM 3.9 mmol/L (3.5-5.1)
[2019-12-29] MEDS: ASPIRIN 81 MG CHEW TAB PO SCH (09:27)
[2019-12-29] MEDS: NYSTATIN 15 GM POWDER UD BTL TOP SCH ×2 (09:27→17:33)
[2019-12-29] MEDS: HYDRALAZINE HCL 25 MG TAB PO SCH ×3 (09:29→21:00)
[2019-12-29] MEDS: FUROSEMIDE INJ 10 MG/ML 4 ML VIAL IV SCH (09:29)
[2019-12-29] MEDS: FUROSEMIDE 40 MG TAB PO SCH ×2 (11:40→17:33)
[2019-12-29] MEDS: CEFEPIME 1GM/NS 0.9% 50 ML 50 ML IV SCH (11:41)
[2019-12-29] MEDS: AMLODIPINE BESYLATE 10 MG TAB PO SCH (11:41)
[2019-12-29] MEDS ORDERED: BISACODYL 5 MG TAB EC PO ONE (11:45)
[2019-12-29] MEDS: ENOXAPARIN SOD INJ 40 MG/0.4 ML SYR SC SCH (17:33)
[2019-12-29] MEDS: DOCUSATE SODIUM 100 MG CAP PO SCH (17:33)
[2019-12-29] MEDS: SIMVASTATIN 20 MG TAB PO SCH (21:00)
[2019-12-29] MEDS: LEVOTHYROXINE SODIUM 100 MCG TAB PO SCH (21:00)
[2019-12-30] VITALS: BP 135/58
[2019-12-30] MEDS: ACETAMINOPHEN 325 MG TAB PO PRN (00:56)
[2019-12-30] MEDS ORDERED: SODIUM CHLORIDE 0.9% 250ML 250 ML ONE (01:35)
[2019-12-30] MEDS: CEFEPIME 1GM/NS 0.9% 50 ML 50 ML IV SCH ×3 (02:06→11:48)
[2019-12-30 06:58] LABS: ANION GAP 12.2 mmol/L (8-16); CALCIUM 8.5 mg/dL (8.4-10.2); CREATININE, SERUM 0.99 mg/dL (0.57-1.11); POTASSIUM 4.2 mmol/L (3.5-5.1)
[2019-12-30 08:02] VITALS: BP 157/75
[2019-12-30 08:45] VITALS: BP 157/75
[2019-12-30] MEDS: NYSTATIN 15 GM POWDER UD BTL TOP SCH (09:00)
[2019-12-30] MEDS: DOCUSATE SODIUM 100 MG CAP PO SCH (09:00)
[2019-12-30] MEDS: HYDRALAZINE HCL 25 MG TAB PO SCH (09:00)
[2019-12-30] MEDS: FUROSEMIDE 40 MG TAB PO SCH (09:00)
[2019-12-30] MEDS ORDERED: FUROSEMIDE 40 MG TAB PO SCH (09:00)
[2019-12-30] MEDS: ASPIRIN 81 MG CHEW TAB PO SCH (09:00)
[2019-12-30] MEDS: AMLODIPINE BESYLATE 10 MG TAB PO SCH (09:00)
[2019-12-30] MEDS ORDERED: CEFEPIME 11 GM/50 ML IV (11:08)
[2019-12-30] MEDS ORDERED: FUROSEMIDE40 MG PO (11:08)
[2019-12-30] MEDS ORDERED: FUROSEMIDE INJ 10 MG/ML 4 ML VIAL IV ONE (11:15)
[2019-12-30 12:22] VITALS: BP 162/62
== END 2019-12-30 14:58 | DRG 261 ==
LOC: ER 15:00 → ERHOLD 18:29 → MED/SURG 21:20 → MED/SURG3 12-28 11:54
PROVIDERS: ADMIT Internal Medicine; ATTEND Internal Medicine
PROC: 0JH602Z Insertion of Monitoring Device into Chest Subcutaneous Tissue and Fascia, Open Approach (ICD-10-PCS; principal; 2019-12-26)
PROC: 05HY33Z Insertion of Infusion Device into Upper Vein, Percutaneous Approach (ICD-10-PCS; 2019-12-26)
DX: I11.0 Hypertensive heart disease with heart failure (principal); I69.351 Hemiplegia and hemiparesis following cerebral infarction affecting right dominant side; N39.0 Urinary tract infection, site not specified; E11.9 Type 2 diabetes mellitus without complications; I50.33 Acute on chronic diastolic (congestive) heart failure; B96.5 Pseudomonas (aeruginosa) (mallei) (pseudomallei) as the cause of diseases classified elsewhere; E78.00 Pure hypercholesterolemia, unspecified; D64.9 Anemia, unspecified; E03.9 Hypothyroidism, unspecified; B96.20 Unspecified Escherichia coli [E. coli] as the cause of diseases classified elsewhere; Z11.59 Encounter for screening for other viral diseases; I49.1 Atrial premature depolarization; I07.1 Rheumatic tricuspid insufficiency
CPT/HCPCS: 33285; 36415; 71045; 80048; 80053; 81001; 82550; 82553; 82948; 83880; 84443; 84484; 85025; 85610; 85730; 87086; 87186; 93005; 93306; 97139; 99285; C1764; J0461; J0692; J0696; J1650; J1940; J7050; U0002

== ENCOUNTER 2020-01-01 18:38 | Inpatient (IN) | payer MEDICARE ==
[~2020-01-01] VITALS: Ht 167.6 cm; Wt 106.6 kg
[~2020-01-01 18:38] MED LIST changes: +CEFEPIME 11 GM/50 ML IV
--- OUTSIDE RECORDS SUMMARY | 2020-01-01 19:15 | XMS REPORT | Clinical Summary ---
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 Active ipratropium (ATROVENT) 2 sprays by 0 0.03 % 0.03% nasal spray Nasal route every 12 (twelve) hours. Active levothyroxine (SYNTHROID, Take 200 mcg 0 LEVOTHROID) 200 MCG by mouth tablet Every morning on an empty stomach. Active simvastatin (ZOCOR) 20 MG Take 20 mg by 0 tablet mouth nightly. Active SITagliptin (JANUVIA) 50 Take 50 mg by 0 MG tablet mouth daily. 07/27/2019 amLODIPine (NORVASC) 10 Take 1 tablet 30 tablet 11 MG tablet (10 mg total) 9 by mouth daily. 11/24/2019 carvedilol (COREG) 12.5 Take 1 tablet 60 tablet 11 MG tablet (12.5 mg 9 total) by mouth 2 (two) times daily with breakfast and dinner. 11/24/2019 furosemide (LASIX) 40 MG Take 1 tablet 60 tablet 11 tablet (40 mg total) 9 by mouth 2 (two) times daily. 11/24/2019 hydrALAZINE (APRESOLINE) Take 1 tablet 90 tablet 11 100 MG tablet (100 mg 9 total) by mouth 3 (three) times daily. 11/24/2019 lisinopril Take 1 tablet 60 tablet 11 (PRINIVIL,ZESTRIL) 20 MG (20 mg total) 9 tablet by mouth 2 (two) times daily. 11/24/2019 cyanocobalamin 1000 MCG Take 1 tablet 30 tablet 11 tablet (1,000 mcg 9 total) by mouth daily. 11/24/2019 ferrous sulfate 325 (65 Take 1 tablet 60 tablet 11 FE) MG tablet (325 mg 9 total) by mouth 2 (two) times daily. 11/25/2019 folic acid (FOLVITE) 1 MG Take 1 tablet 30 tablet 11 tablet (1 mg total) 9 by mouth daily. Active Problems Problem Noted Date Acute on chronic diastolic (congestive) heart failure 11/20/2018 S/P pericardial window creation 07/20/2018 Acute post-operative pain 07/20/2018 Acute hypercapnic respiratory failure 07/20/2018 Bradycardia 07/20/2018 Acute prerenal azotemia 07/20/2018 Anemia due to chronic kidney disease 07/20/2018 Pericardial effusion 07/20/2018 Dyspnea and respiratory abnormality 07/18/2018 Acute diastolic CHF (congestive heart failure) 07/18 Social History Date Tobacco Use Types Packs/Day Years Used Never Smoker Smokeless Tobacco: Never Used Drinks/Week oz/Week Comments Alcohol Use No Alcohol Habits Answer Date Recorded How often do you have a drink containing alcohol? Never 07/18/2018 How many drinks containing alcohol do you have on No t asked a typical day when you are drinking? How often do you have six or more drinks on one Not asked occasion? Sex Assigned at Date Recorded Not on file Last Filed Vital Signs Not on file Plan of Treatment Health Maintenance Due Date Last Done Comments MEDICARE ANNUAL WELLNESS 02/20/2015 (YEAR 2 or FIRST YEAR if no IPPE) INFLUENZA VACCINE (#1) 2019 11/05/2017, 12/14/2016, 12/07/2015, Additional history exists PNEUMOCOCCAL 65+ YRS Completed 05/15/2014, 01/11/2010, 11/17/2003 Results Not on fileafter 12/31/2018 Insurance Type Payer Benefit Subscriber ID Effective Phone Address Plan / Dates Group [facility] [id number] 2014-P MEDICARE [place] [id number] Advance Directives For more information, please contact: [phone] Date Inactivated Comments Code Status Date Activated 11/24/2018 3:10 PM Full Code 11/20/2018 3:43 PM This code status was determined by: Patient 07/26/2018 4:55 PM Full Code 07/19/2018 7:41 PM This code status was determined by: Patient 07/19/2018 7:41 PM Full Code 07/18/2018 4:43 PM This code status was determined by: Patient
--- OUTSIDE RECORDS SUMMARY | 2020-01-01 19:16 | XMS REPORT | Continuity of Care Document ---
Author Author [facility] t Organization [facility] Address [address] [place] [address] Phone Unavailable Care Team Providers Care Healthcare Risk Control Consultant Name Role Phone NO, PCP PCP Unavailable Trevon MARIANO YICHING Attphys Unavailable LONNY CH Attphys Unavailable Trevon MARIANO YICHING Admphys Unavailable HEAVENLY STALLINGS Admphys Unavailable Payers Payer Name Policy Type Policy Number Effective Date Expiration Date Betty pimentel Kelsey [employer] Medicare Advantage [id number] 2014 00:0 0:00 [facility] Problems Condition Name Condition Details Condition Category Status Onset Date Resolution Date Last Treatment Date Treating Clinician Comments Source Acute on chronic diastolic (congestive) heart failure Acute on chronic diastolic (congestive) heart failure Disease Active 2018-11-20 00:00:00 [facility] 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 Dis ease Active 2018-07-20 00:00:00 [facility] Acute post-operative pain Acute post-operative pain Disease Ac tive 2018-07-20 00:00:00 [facility] Acute hypercapnic respiratory failure Acute hypercapnic resp iratory failure Disease Active 2018-07-20 00:00:00 [facility] Bradycardia Bradycardia Disease Active 2018-07-20 00:00:00 [facility] Acute prerenal azotemia Acute prerenal azotemia Disease Active 2018-07-20 00:00:00 [facility] Anemia due to chronic kidney disease Anemia due to chronic k idney disease Disease Active 2018-07-20 00:00:00 [facility] Pericardial effusion Pericardial effusion Disease Active 00:00:00 [facility] Dyspnea and respiratory abnormality Dyspnea and respiratory abno rmality Disease Active 2018-07-18 00:00:00 [facility] Acute diastolic CHF (congestive heart failure) Acute d iastolic CHF (congestive heart failure) Disease Active 2018-07-18 00:00:00 [facility] Congestive heart failure Congestive heart failure (CHF) Problem Active [facility] Renal insufficiency Problem Active [facility] Allergies, Adverse Reactions, Alerts Allergy Name Allergy Type Status Severity Reaction(s) Onset Date Inacti ve Date Treating Clinician Comments Source Codeine Drug Allergy Active Other (See Comments) 2018-07-18 00: 00:00 headache [facility] Iodinated Contrast Media Drug Allergy Active Hives 2018-07-18 00: 00:00 [facility] Iodine Allergy to substance Active Severe 2017-09-24 00:00:00 [facility] Codeine Allergy to substance Active Severe 2017-09-24 00:00:00 [facility] Social History Social Habit Start Date Stop Date Quantity Comments Source History SDOH Alcohol Std Drinks [facility] History SDOH Alcohol Binge [facility] Sex Assigned At [facility] Tobacco use and exposure 2018-11-28 00:00:00 2018-11-28 00:00:00 Litae r used [facility] Alcohol intake 2018-11-28 00:00:00 2018-11-28 00:00:00 Current non-drinker of alcohol (finding) [facility] History SDOH Alcohol Frequency 2018-07-18 00:00:00 2018-07-18 00:00:0 0 1 [facility] Smoking Status Start Date Stop Date Source Never smoker [facility] Medications Ordered Medication Name Filled Medication Name Start Date Stop Da te Current Medication? Ordering Clinician Indication Dosage Frequency Signature (SIG) Comments Components Source Cefepime Hcl/Dextrose, Iso-Osm (Cefepime 1 Gm Injectio n) 1 Gm/50 Ml FROZ.JANET Cefepime Hcl/Dextrose, Iso-Osm (Cefepime 1 Gm Injection) 1 Gm/50 Ml FROZ.PIGGY 2019-12-30 11:08:00 Yes 1 Twice A Day [facility] Furosemide Furosemide 2019-12-30 11:08:00 Yes 60 Twi ce A Day [facility] folic acid (FOLVITE) 1 MG tablet 2018-11-25 00:00:00 2019-11 23:59:00 No 1mg QD Take 1 tablet (1 mg total) by mouth daily. [facility] aspirin 81 MG EC tablet 2018-11-24 13:10:27 Yes 81mg QD Take 81 mg by mouth daily. [facility] ipratropium (ATROVENT) 0.03 % 0.03% nasal spray 2018-11-24 13:10 :27 Yes 2{spray} 2 sprays by Nasal route every 12 (twelve) hours. [facility] levothyroxine (SYNTHROID, LEVOTHROID) 200 MCG tablet 2 13:10:27 Yes 200ug Take 200 mcg by mouth Every morning on a n empty stomach. [facility] simvastatin (ZOCOR) 20 MG tablet 2018-11-24 13:10:27 Yes 20mg QD Take 20 mg by mouth nightly. [facility] SITagliptin (JANUVIA) 50 MG tablet 2018-11-24 13:10:27 Yes 50mg QD Take 50 mg by mouth daily. [facility] carvedilol (COREG) 12.5 MG tablet 2018-11-24 00:00:00 2019 23:59:00 No 12.5mg Take 1 tablet (1 2.5 mg total) by mouth 2 (two) times daily with breakfast and dinner. [facility] furosemide (LASIX) 40 MG tablet 2018-11-24 00:00:00 23:59:00 No 40mg Q.5D Take 1 tablet (40 mg total) by mouth 2 (two) ti mes daily. [facility] hydrALAZINE (APRESOLINE) 100 MG tablet 6 00:00:00 2019-11-24 23:59:00 No 100mg Q.[id number] Ta ke 1 tablet (100 mg total) by mouth 3 (three) times daily. [facility] lisinopril (PRINIVIL,ZESTRIL) 20 MG tablet 11-24 00:00:00 2019-11-24 23:59:00 No 20mg Q.5D Take 1 tablet (20 mg total) by mouth 2 (two) times daily. [facility] cyanocobalamin 1000 MCG tablet 2018-11-24 00:00:00 2019-11-24 23 :59:00 No 1000ug QD Take 1 tablet (1,000 mcg total) by mouth daily. [facility] ferrous sulfate 325 (65 FE) MG tablet 2018-11-24 00:00 :00 2019-11-24 23:59:00 No 325mg Q.5D Take 1 tablet (325 mg total) b y mouth 2 (two) times daily. [facility] amLODIPine (NORVASC) 10 MG tablet 2018-07-27 00:00:00 2019 23:59:00 No 10mg QD Take 1 tablet (10 mg total) by mouth geeta cuba [facility] Cefuroxime Axetil (Cefuroxime) 250 Mg TABLET Cefuroxim e Axetil (Cefuroxime) 250 Mg TABLET 2017-09-28 14:51:00 2019-12-30 00:00:00 No 250 Every 12 Hours [facility] Doxycycline Doxycycline 2017-09-28 14:51:00 2019-12-30 00:00:00 No 100 Twice A Day [facility] Furosemide Furosemide 2017-09-28 14:42:00 2019-12-30 00:00:00 No 60 Daily [facility] Amlodipine Besylate/Benazepril (Amlodipine-Benazepril 10-40 Mg) 1 Each CAPSULE Amlodipine Besylate/Benazepril (Amlodipine-Benazepril 10-40 Mg) 1 Each CAPSULE Yes 1 Daily [facility] Aspirin (Aspir 81) 81 Mg TABLET. Aspirin (Aspir 81) 81 Mg TABLET. Yes 81 Daily [facility] Carvedilol Carvedilol Yes 25 Twice A Day [facility] Glimepiride Glimepiride Yes 4 Twice A Day [facility] Hydralazine Hcl Hydralazine Hcl Yes 25 Three Ti mes A Day [facility] Hydrocodone Bit/Acetaminophen ([place] 5-325 Tablet) 1 E ach TABLET Hydrocodone Bit/Acetaminophen ([place] 5-325 Tablet) 1 Each TABLET Yes 1 Every 6 Hours as needed for Pain [facility] Levothyroxine Sodium Levothyroxine Sodium Yes 200 Daily [facility] Simvastatin Simvastatin Yes 20 Today At 9:00PM [facility] Sitagliptin Phosphate (Januvia) 100 Mg TABLET Sitaglip tin Phosphate (Januvia) 100 Mg TABLET Yes 50 Daily [facility] Furosemide Furosemide 2017-09-28 00:00:00 No 40 Geeta ly [facility] Vital Signs Vital Name Observation Time Observation Value Comments Source Body Temperature 2019-12-30 12:22:00 97.5 [degF] [facility] Heart Rate 2019-12-30 12:22:00 66 /min [facility] Respiratory rate 2019-12-30 12:22:00 19 /min [facility] BP Systolic 2019-12-30 12:22:00 162 mm[Hg] [facility] BP Diastolic 2019-12-30 12:22:00 62 mm[Hg] [facility] Oxygen saturation by Pulse oximetry 2019-12-30 12:22:00 96 /min [facility] Weight 2019-12-25 05:39:00 235 [lb_av] [facility] BMI (Body Mass Index) 2019-12-25 05:39:00 37.9 kg/m2 [facility] Procedures This patient has no known procedures. Plan of Care Planned Activity Planned Date Details Comments Source Future Scheduled Test 2019-10-21 00:00:00 INFLUENZA VACCINE (#1) [code = INFLUENZA VACCINE (#1)] [facility] Future Scheduled Test 2015-02-20 00:00:00 MEDICARE ANNUAL WE LLNESS (YEAR 2 or FIRST YEAR if no IPPE) [code = MEDICARE ANNUAL WELLNESS (YEAR 2 or FIRST YEAR if no IPPE)] [facility] Instructions Cardiac Disease Risk Factors [facility] Instructions Congestive Heart Failure [facility] Encounters Start Date/Time End Date/Time Encounter Type Admission Type [facility] Care Department Encounter ID Source 2019-12-24 18:29:00 2019-12-30 14:58:00 Discharged Inpatient 1 [facility] [id number] [facility] 2017-09-25 01:09:00 2017-09-28 17:50:00 Discharged Inpatient 1 [facility] [id number] [facility] Results Test Description Test Time Test Comments Results Result Comments Source Capillary blood glucose measurement by glucometer (mas s/volume) 2019-12-30 11:45:00 Test Item Bedside Glucose (test code = 97385-6) 128 mg/dL 70-120 Meter ID: [id number] [facility] or plasma sodium measurement (moles/volume)2019-12-30 05:55:00* Test Item Value Reference Range Interpretation Comments Sodium Level (test code = 2951-2) 142 mmol/L 136-145 [facility] plasma potassium measurement (moles/volume)2019-12-30 05:55:00* Test Item Value Reference Range Interpretation Comments Potassium Level (test code = 2823-3) 4.2 mmol/L 3.5-5.1 [facility] plasma chloride measurement (moles/volume)2019-12-30 05:55:00* Test Item Value Reference Range Interpretation Comments Chloride Level (test code = 2075-0) 104 mmol/L 98-107 [facility] or plasma carbon dioxide, total measurement (moles/volume)2019-12-30 05:55:00* Test Item Value Reference Range Interpretation Comments Carbon Dioxide Level (test code = 2028-9) 30 mmol/L 22-29 [facility] or plasma anion [id number] 05:55:00* Test Item Value Reference Range Interpretation Comments Anion Gap (test code = 38196-5) 12.2 mmol/L 8-16 [facility] plasma urea nitrogen measurement (mass/volume)2019-12-30 05:55:00* Test Item Value Reference Range Interpretation Comments Blood Urea Nitrogen (test code = 3094-0) 30 mg/dL 7- [facility] or plasma creatinine measurement (mass/volume)2019-12-30 05:55:00* Test Item Value Reference Range Interpretation Comments Creatinine (test code = 2160-0) 0.99 mg/dL 0.57-1.11 [facility] or plasma urea nitrogen/creatinine mass [id number] 05:55:00* Test Item Value Reference Range Interpretation Comments BUN/Creatinine Ratio (test code = 3097-3) 30 6-25 [facility] AreaEstimated glomerular filtration rate (GFR) nkkrejcujrpob9012-54-23 05:55:00* Test Item Value Reference Range Interpretation Comments Estimat Glomerular Filtration Rate (test code = 221314308) 54 mL/mi n >60 Ranges were taken from the National Kidney Disease Education Program and the [facility] literature.Reference ranges:60 or greater: Cdutjl81-02 ( for 3 consecutive months): Chronic kidney disease 15 or less: Kidney failureCorpus Christi Medical Center Bay AreaGlucose jxfsjmtizvl5314-45-05 05:55:00* Test Item Value Reference Range Interpretation Comments Glucose Level (test code = IFZ4145) 104 mg/dL 74-118 [facility]ere[facility] or plasma calcium measurement (mass/volume)2019-12-30 05:55:00* Test Item Value Reference Range Interpretation Comments Calcium Level (test code = 04313-2) 8.5 mg/dL 8.4-10.2 [facility] Area[facility] leukocytes automated count (number/volume)2019-12-29 06:04:00* Test Item Value Reference Range Interpretation Comments White Blood Count (test code = 6690-2) 8.01 10*3/uL 4.8-10.8 [facility] Area[facility] erythrocytes automated count (number/volume)2019-12-29 06:04:00* Test Item Value Reference Range Interpretation Comments Red Blood Count (test code = 789-8) 4.12 10*6/mL 3.6-5.1 [facility] AreaBlood hemoglobin measurement (moles/volume)2019-12-29 06:04:00* Test Item Value Reference Range Interpretation Comments Hemoglobin (test code = 91698-9) 10.8 g/dL 12.0-16.0 [facility] AreaAutomated blood hematocrit (volume fraction)2019-12-29 06:04:00* Test Item Value Reference Range Interpretation Comments Hematocrit (test code = 4544-3) 35.8 % 34.2-44.1 [facility] AreaAutomated erythrocyte mean corpuscular zdfqnz1983-67-86 06:04:00* Test Item Value Reference Range Interpretation Comments Mean Corpuscular Volume (test code = 787-2) 86.9 81-99 [facility] AreaAutomated erythrocyte mean corpuscular hemoglobin (mass per erythrocyte)2019-12-29 06:04:00* Test Item Value Reference Range Interpretation Comments Mean Corpuscular Hemoglobin (test code = 785-6) 26.2 pg 28-32 [facility] AreaAutomated erythrocyte mean corpuscular hemoglobin concentration measurement (mass/volume)2019-12-29 06:04:00* Test Item Value Reference Range Interpretation Comments Mean Corpuscular Hemoglobin Concent (test code = 786-4) 30.2 g/dL 31-35 [facility] AreaRDW JwqGt-Xhu3646-35-09 06:04:00* Test Item Value Reference Range Interpretation Comments Red Cell Distribution Width (test code = 34004-6) 20.0 % 11.7 -14.4 [facility] AreaAutomated blood platelet count (count/volume)2019-12-29 06:04:00* Test Item Value Reference Range Interpretation Comments Platelet Count (test code = 777-3) 175 10*3/uL 140-360 [facility] AreaAutomated blood segmented neutrophil count as percentage of total mmnlcfvnbu3702-10-46 06:04:00* Test Item Value Reference Range Interpretation Comments Neutrophils (%) (Auto) (test code = 91157-5) 66.4 % 38.7-80.0 [facility] AreaAutomated blood lymphocyte count as percentage ot total idcwpgmnwb7449-74-42 06:04:00* Test Item Value Reference Range Interpretation Comments Lymphocytes (%) (Auto) (test code = 736-9) 13.7 % 18.0-39.1 [facility] AreaAutomated blood monocyte count as percentage of total rbikrobjkx7175-76-76 06:04:00* Test Item Value Reference Range Interpretation Comments Monocytes (%) (Auto) (test code = 5905-5) 8.5 % 4.4-11.3 [facility] AreaAutnovant [facility] blood eosinophil count as percentage of total ehjembvgap4734-92-23 06:04:00* Test Item Value Reference Range Interpretation Comments Eosinophils (%) (Auto) (test code = 713-8) 4.4 % 0.0-6.0 [facility] AreaAutomated blood basophil count as percentage of total orrytxtmmt4479-84-14 06:04:00* Test Item Value Reference Range Interpretation Comments Basophils (%) (Auto) (test code = 706-2) 1.0 % 0.0-1.0 [facility] AreaFluoroscopic procedure less than one hour gxogibiy6248-14-39 06:04:00* Test Item Value Reference Range Interpretation Comments IM GRANULOCYTES % (test code = IM GRANULOCYTES %) 6.0 % 0.0- 1.0 [facility] AreaAutomated blood neutrophil count 2019-12-29 06:04:00* Test Item Value Reference Range Interpretation Comments Neutrophils # (Auto) (test code = 751-8) 5.3 2.1-6.9 [facility] AreaBlood lymphocytes count (number/volume) 2019-12-29 06:04:00* Test Item Value Reference Range Interpretation Comments Lymphocytes # (Auto) (test code = 40625-1) 1.1 1.0-3.2 [facility] AreaBlood monocytes automated count (number/volume)2019-12-29 06:04:00* Test Item Value Reference Range Interpretation Comments Monocytes # (Auto) (test code = 742-7) 0.7 0.2-0.8 [facility] AreaAutomated blood eosinophil count 2019-12-29 06:04:00* Test Item Value Reference Range Interpretation Comments Eosinophils # (Auto) (test code = 711-2) 0.4 0.0-0.4 [facility] AreaAutomated blood basophil count (count/volume)2019-12-29 06:04:00* Test Item Value Reference Range Interpretation Comments Basophils # (Auto) (test code = 704-7) 0.1 0.0-0.1 [facility] AreaFluoroscopic procedure less than one hour yrvjgcvl2187-34-29 06:04:00* Test Item Value Reference Range Interpretation Comments Absolute Immature Granulocyte (auto (maureen t code = Absolute Immature Granulocyte (auto) 0.48 10*3/uL 0-0.1 [facility] AreaCHEST SINGLE (PORTABLE)2019-12-28 12:53:00[facility] 1935 Sex: F [place] [id number] Patient Name: ANGELO BARTON MR #: [id number] : 1935 Age/Sex: 84/F Req #: [id number] Adm Physician: JIMMY MARIANO MD Ordered by: JENELLE GARRIDO NP Report #: [id number] [facility] Room/Bed: [facility] Procedure: [id number] DX/CHEST SINGLE (PORTABLE) Exam Da te: 12/28/19 Exam Time: 1230 REPORT STATUS: Signed EXAMINATION: CHEST SINGLE (PORTAB LE) COMPARISON: Chest x-ray 12/26/2019 INDICATION: sob 2020 1108 1230 DISCUSSION: Frontal view of the chest obtained at 1233 [address]. HEART AND MEDIASTINUM: Stable cardiomegaly. Pulmonary arteries are enl arged. Pulmonary vascular is prominent and indistinct LINES: None. Loo p recorder device in the left chest is stable. LUNGS/PLEURA: Multifocal al veolar infiltrates are redemonstrated. Retrocardiac airspace opacities are sta ble. Bilateral pleural effusions, left larger than right are similar. No pneum othorax. BONES AND SOFT TISSUES: No focal osseous lesion. The soft tissues are normal. IMPRESSION: 1. Stable pulmonary vascular congestion and pulmonary edema. Retrocardiac airspace opacity suggestive of atelectasis or p neumonia. Stable pleural effusions. 2. Cardiomegaly and enlarged pulmona ry arteries suggestive of pulmonary artery hypertension. Signed by: Dr. Kei Kessler MD on 12/28/2019 12:55 PM Dictated By: KASIE KESSLER MD 125 Transcribed By: DEXTER on 12/28/19 1253 COPY TO: JENELLE GARRIDO NP CHEST SINGLE (PORTABLE)2019-12-26 12:05:[address] [facility] : 1935 Sex: F [facility] [address] [place] [address] Patient Name: ANGELO BARTON MR #: [id number] : 1935 Age/Sex: 84/F Req #: [id number] Adm Physician: JIMMY MARIANO MD Ordered by: JENELLE GARRIDO REWINDER Report #: [id number] Location: MED/SURG Room/Bed: [facility] Procedure: [id number] DX/CHEST SINGLE (PORTABLE) Exam Da te: 12/26/19 Exam Time: 1144 REPORT STATUS: Signed EXAMINATION: CHEST SINGLE (PORTAB LE) INDICATION: Pulmonary edema COMPARISON: Chest radiograph 2019 FINDINGS: LINES/TUBES:Left chest loop recorder. LUNGS:T he lungs are moderately inflated. There is perihilar fullness and indistinctne ss of the pulmonary vasculature. There is left basilar opacity silhouetting th e left levi diaphragm. PLEURA:Small left pleural effusion. No pneumothorax. MEDIASTINUM:The cardiomediastinal silhouette appears unchanged in size and shape. BONES/SOFT TISSUES:No acute osseous injury. ABDOMEN:No free air under the diaphragm. IMPRESSION: No significant interval change. Signed by: Otto Du MD on 12/26/2019 12:05 PM Dictated By: OTTO DU MD 04 Transcribed By: DEXTER on 12/26/191204 COPY TO: JENELLE GARRIDO NP Serum or plasma creatine kinase measurement (enzymatic activity/volume)2019-12-25 11:57:00* Test Item Value Reference Range Interpretation Comments Creatine Kinase (test code = 2157-6) 18 [IU]/L 29-168 [facility] or plasma creatine kinase MB measurement (mass/volume)2019-12-25 11:57:00* Test Item Value Reference Range Interpretation Comments Creatine Kinase MB (test code = 13611-4) 2.10 ng/mL 0-5.0 [facility] AreaTroponin I measurement by highly sensitive enzyme ejfsfmjtlrz1513-55-13 11:57:00* Test Item Value Reference Range Interpretation Comments Troponin I (test code = 86248-5) 0.012 ng/mL 0-0.300 [facility] or plasma thyrotropin measurement by detection limit <= 0.005 miu/l (units/volume)2019-12-25 11:57:00* Test Item Value Reference Range Interpretation Comments Thyroid Stimulating Hormone (TSH) (test code = 67913-2) 11.510 0.350-4.940 [facility]: 0.350-5.500 ulU/mLCHI [facility] Medical CenterFluoroscopic procedure less than one hour duration 2019-12-25 05:15:00* Test Item Value Reference Range Interpretation Comments Differential Total Cells Counted (test code = Annelise morris Total Cells Counted) 100 [facility]100 leukocytes 2019-12-25 05:15:00* Test Item Value Reference Range Interpretation Comments Neutrophils % (Manual) (test code = 72084-2) 79 % 40-74 [facility] blood lymphocytes/100 leukocytes 2019-12-25 05:15:00* Test Item Value Reference Range Interpretation Comments Lymphocytes % (Manual) (test code = 737-7) 9 % 19-48 [facility] AreaManual blood monocytes/100 leukocytes 2019-12-25 05:15:00* Test Item Value Reference Range Interpretation Comments Monocytes % (Manual) (test code = 744-3) 11 % 3.4-9.0 [facility] AreaManual blood eosinophil count as percentage of total uopsibnnqs2436-13-88 05:15:00* Test Item Value Reference Range Interpretation Comments Eosinophils % (Manual) (test code = 714-6) 1 % 0-7 [facility] AreaBlood platelets count by estimate (number/volume)2019-12-25 05:15:00* Test Item Value Reference Range Interpretation Comments Platelet Estimate (test code = 82573-6) ADEQUATE [facility] AreaPlatelet pqgwyyyyub7000-79-29 05:15:00* Test Item Value Reference Range Interpretation Comments Platelet Morphology Comment (test code = 58032-5) NORMAL [facility] AreaBlood anisocytosis detection by light ctfkgeeeyk6814-90-82 05:15:00* Test Item Value Reference Range Interpretation Comments Anisocytosis (test code = 702-1) MODERATE [facility] ovalocytes detection by light ubvcxrxevk4799-21-93 05:15:00* Test Item Value Reference Range Interpretation Comments Ovalocytes (test code = 774-0) FEW [facility] AreaRBC mefiibjxlj0960-22-32 05:15:00* Test Item Value Reference Range Interpretation Comments Red Cell Morphology Comment (test code = 6742-1) ABNORMAL [facility] or plasma total bilirubin measurement (mass/volume)2019-12-25 05:15:00* Test Item Value Reference Range Interpretation Comments Total Bilirubin (test code = 1975-2) 0.5 mg/dL 0.2-1.2 [facility] AreaFluoroscopic procedure less than one hour [id number] 05:15:00* Test Item Value Reference Range Interpretation Comments Aspartate Amino Transf (AST/SGOT) (test code = Aspartate Amino Transf (AST/SGOT)) 9 [IU]/L 5-34 [facility] Centererum or plasma alanine aminotransferase measurement (enzymatic activity/volume)2019-12-25 05:15:00* Test Item Value Reference Range Interpretation Comments Alanine Aminotransferase (ALT/SGPT) (test code = 1742-6) < 6 [IU]/L 0-55 [facility] Centererum or plasma protein measurement (mass/volume)2019-12-25 05:15:00* Test Item Value Reference Range Interpretation Comments Total Protein (test code = 2885-2) 5.3 g/dL 6.5-8.1 [facility] [facility] albumin [facility] (mass/volume)2019-12-25 05:15:00* Test Item Value Reference Range Interpretation Comments Albumin (test code = 1751-7) 2.8 g/dL 3.5-5.0 [facility] globulin measurement (mass/volume) 2019-12-25 05:15:00* Test Item Value Reference Range Interpretation Comments Globulin (test code = 45526-4) 2.5 g/dL 2.3-3.5 [facility] albumin/globulin mass [id number] 05:15:00* Test Item Value Reference Range Interpretation Comments Albumin/Globulin Ratio (test code = 1759-0) 1.1 0.8-2.0 [facility] alkaline phosphatase measurement (enzymatic activity/volume)2019-12-25 05:15:00* Test Item Value Reference Range Interpretation Comments Alkaline Phosphatase (test code = 6768-6) 72 [IU]/L 40-150 [facility] AreaFluoroscopic procedure less than one hour [id number] 18:39:00* Test Item Value Reference Range Interpretation Comments Coronavirus (PCR) (test code = Coronavirus (PCR)) NOT DETECTED NOTD ETECTED SARS-CoV-2 PCRHologic Aptima SARS-CoV-2 assay is a nucleic amplification test in tended for the qualitative detection of RNA from SARS-CoV-2 from nasopharyngeal (REWINDER) specimens. It is used under Emergency Use Authorization (EUA) by FDA.A posi tive result is indicative of the presence of SARS-CoV-2 RNA. Clinical correlatio n with patient history and other diagnostic information is necessary to determin e patient infection status.A negative (Not Detected) result does not preclude SA RS-CoV-2 infection. Clinical Correlation with patient history and other diagnost ic information should be used in patient management decisions.Invalid: Unable to generate a valid result on this specimen. Please submit a new specimen for repr at testing oc clinically indicated.Tesing performed by:[facility] Laboratory Services[address] [place] [id number], Bony negron MD, PhDCorpus [facility] AreaUrine color determination 2019-12-24 16:45:00* Test Item Value Reference Range Interpretation Comments Urine Color (test code = 5778-6) YELLOW YELLOW [facility] AreaUrine [id number] 16:45:00* Test Item Value Reference Range Interpretation Comments Urine Clarity (test code = 01782-8) CLEAR CLEAR [facility] gravity of Urine by Test strip 2019-12-24 16:45:00* Test Item Value Reference Range Interpretation Comments Urine Specific [place] (test code = 5811-5) 1.015 1.010-1.02 5 [facility] AreaU[facility] pH measurement by automated test [id number] 16:45:00* Test Item Value Reference Range Interpretation Comments Urine pH (test code = 27182-5) 5.5 5-7 [facility] AreaUrine leukocyte esterase detection by [id number] 16:45:00* Test Item Value Reference Range Interpretation Comments Urine Leukocyte Esterase (test code = 5799-2) NEGATIVE NEGATIVE [facility] AreaUrine nitrite [id number] 16:45:00* Test Item Value Reference Range Interpretation Comments Urine Nitrite (test code = 66362-3) NEGATIVE NEGATIVE [facility] Area[facility] protein measurement by test strip (mass/volume)2019-12-24 16:45:00* Test Item Value Reference Range Interpretation Comments Urine Protein (test code = 5804-0) 2+ NEGATIVE [facility] AreaUrine glucose waxvxoscj8291-55-84 16:45:00* Test Item Value Reference Range Interpretation Comments Urine Glucose (UA) (test code = 2349-9) NEGATIVE NEGATIVE [facility] AreaUrine ketones detection by automated test [id number] 16:45:00* Test Item Value Reference Range Interpretation Comments Urine Ketones (test code = 99197-7) NEGATIVE NEGATIVE [facility] AreaUrine urobilinogen measurement by test strip (mass/volume)2019-12-24 16:45:00* Test Item Value Reference Range Interpretation Comments Urine Urobilinogen (test code = 62242-8) 0.2 mg/dL 0.2-1 [facility] AreaU[facility] total bilirubin measurement (mass/volume)2019-12-24 16:45:00* Test Item Value Reference Range Interpretation Comments Urine Bilirubin (test code = 1978-6) NEGATIVE NEGATIVE [facility] AreaUrine erythrocytes [id number] 16:45:00* Test Item Value Reference Range Interpretation Comments Urine Blood (test code = 79702-6) NEGATIVE NEGATIVE [facility] AreaAutomated urine sediment leukocyte count by microscopy (number/high power field)2019-12-24 16:45:00* Test Item Value Reference Range Interpretation Comments Urine WBC (test code = 5821-4) NONE /[HPF] 0-5 [facility] AreaErythrocytes detection in urine sediment by light [id number] 16:45:00* Test Item Value Reference Range Interpretation Comments Urine RBC (test code = 68137-3) NONE /[HPF] 0-5 [facility] AreaBacteria detection in urine sediment by light rherzfxbfn4122-78-69 16:45:00* Test Item Value Reference Range Interpretation Comments Urine Bacteria (test code = 72243-2) FEW /[HPF] NONE [facility] AreaEpithelial cells detection in urine sediment by light amariqtvxp4011-86-89 16:45:00* Test Item Value Reference Range Interpretation Comments Urine Epithelial Cells (test code = 28606-1) FEW /[LPF] NONE [facility] AreaTransitional cells detection in urine sediment by light zmmgsmyahe0203-26-53 16:45:00* Test Item Value Reference Range Interpretation Comments Urine Transitional Epithelial Cells (test code = 8249-5) FEW NONE [facility] AreaYeast detection in urine sediment by light ndzcfkysog9763-70-25 16:45:00* Test Item Value Reference Range Interpretation Comments Urine Yeast (test code = 17890-2) MODERATE NONE [facility] AreaBacterial urine [id number] 16:45:00* Test Item Value Reference Range Interpretation Comments Urine Culture (test code = 630-4) PSEUDOMONAS AERUGINOSA [facility] AreaCHEST SINGLE (PORTABLE)2019-12-24 15:47:00[facility] : 1935 Sex: F [place] [id number] Patient Name: ANGELO BARTON MR #: [id number] : 1935 Age/Sex: 84/F Req #: [id number] Adm Physician: Ordered by: FORTINO MARLEY MD Report #: [id number] Location: ER Room/Bed: Procedure: [id number] DX/CHEST SINGLE (PORTABLE) Exam Christos e: 11/04/20 Exam Time: 1510 REPORT STATUS: Signed EXAMINATION: CHEST SINGLE (PORTABL E) INDICATION: CHF COMPARISON: Chest radiograph of 09/28/2017 FINDINGS: LINES/TUBES:None LUNGS:The lungs are moderately inflate d. There is perihilar fullness and indistinctness of the pulmonary vasculature . PLEURA:No pleural effusion or pneumothorax. MEDIASTINUM:Cardiomedias tinal silhouette is stably enlarged. Atherosclerotic calcifications of the tho racic aorta. BONES/SOFT TISSUES:No acute osseous injury. ABDOMEN:No f ree air under the diaphragm. IMPRESSION: Cardiomegaly and pulmonary e leonor. Signed by: Otto Du MD on 12/24/2019 3:48 PM Dictated By: DEBBIE DU MD 47 Transcrib ed By: DEXTER on 12/24/198 COPY TO: FORTINO MARLEY MD Prothrombin time (PT) in platelet poor plasma by coagulation [id number] 14:35:00* Test Item Value Reference Range Interpretation Comments Prothrombin Time (test code = 5902-2) 14.1 s 11.9-14.5 [facility] AreaINR in Platelet poor plasma by Coagulation [id number] 14:35:00* Test Item Value Reference Range Interpretation Comments Prothromb Time International Ratio (test code = 6301-6) 1.04 Oral Anticoagulant Therapy INR Values:1. Low Intensity Therapy 1.5 - 2.02 . Moderate Intensity Therapy 2.0 - 3.03. High Intensity Therapy(1) 2.5 - 3. 54. High Intensity Therapy(2) 3.0 - 4.05. Panic Value INR > 5.0 [facility] AreaActivated partial thromboplastin time (aPTT) in platelet poor plasma by coagulation [id number] 14:35:00* Test Item Value Reference Range Interpretation Comments Activated Partial Thromboplast Time (test code = 17388-8) 32.6 s 23.8-35.5 [facility] AreaBNP [id number]-kYim1205-36-04 14:35:00* Test Item Value Reference Range Interpretation Comments B-Type Natriuretic Peptide (test code = 80643-7) 380.8 pg/mL 0-100 [facility], NON [id number] 10:02:00Reason for exam:->chfFINAL REPORT INDICATION: chf TECHNIQUE: Chest radiograph, single view, portable technique. FINDINGS / IMPRESSION: Comparison to November 20.Again demonstrated is enlarged heart shadow representing cardiomegaly.Interval worsening of perihilar and interstitial edema.Pleural effusions are hiding in the posterior sulci, demonstrated on chest CT November 20. Signed: Ba Reed MDReport Verified Date/Time: 11/26/2018 10:02:09 Reading Location: [place] [address] Ortho Consult Reading Room -GLUCOSE [id number] 12:09:00* Test Item Value Reference Range Interpretation Comments POC-GLUCOSE METER (BEAKER) (test code = 1538) 134 mg/dL 70-110 H TESTED AT [address] [address] POCT-GLUCOSE [id number] 07:50:00* Test Item Value Reference Range Interpretation Comments POC-GLUCOSE METER (BEAKER) (test code = 1538) 119 mg/dL 70-110 H TESTED AT [address] [address] [id number] 07:17:00* Test Item Value Reference Range Interpretation Comments MAGNESIUM (BEAKER) (test code = 627) 2.1 mg/dL 1.6-2.6 Specimen slightly hemolyzed BASIC METABOLIC [id number] 07:17:00* Test Item Value Reference Range Interpretation Comments SODIUM (BEAKER) (test code = 381) 140 meq/L 136-145 POTASSIUM (BEAKER) (test code = 379) 4.4 meq/L 3.5-5.1 Specimen slightly hemolyzed CHLORIDE (BEAKER) (test code = 382) 101 meq/L 98-107 CO2 (BEAKER) (test code = 355) 29 meq/L 22-29 BLOOD UREA NITROGEN (BEAKER) (test code = 354) 24 mg/dL 7-21 H CREATININE (BEAKER) (test code = 358) 1.07 mg/dL 0.57-1.25 Specimen slightly hemolyzed GLUCOSE RANDOM (BEAKER) (test code = 652) 113 mg/dL 70-105 H CALCIUM (BEAKER) (test code = 697) 9.3 mg/dL 8.4-10.2 EGFR (BEAKER) (test code = 1092) 49 mL/min/1.73 sq m ESTIMATED GFR IS NOT ACCURATE CREATININE CLEARANCE IN PREDICTING GLOMERULAR FILTRATION RATE. ESTIMATED GFR IS NOT APPLICABLE FOR DIALYSIS PATIENTS. POCT-GLUCOSE [id number] 21:13:00* Test Item Value Reference Range Interpretation Comments POC-GLUCOSE METER (BEAKER) (test code = 1538) 122 mg/dL 70-110 H TESTED AT [address] [address] POCT-GLUCOSE [id number] 17:02:00* Test Item Value Reference Range Interpretation Comments POC-GLUCOSE METER (BEAKER) (test code = 1538) 125 mg/dL 70-110 H TESTED AT [address] [address] POCT-GLUCOSE [id number] 13:06:00* Test Item Value Reference Range Interpretation Comments POC-GLUCOSE METER (BEAKER) (test code = 1538) 105 mg/dL 70-110 TESTED AT [address] [address] POCT-GLUCOSE [id number] 08:00:00* Test Item Value Reference Range Interpretation Comments POC-GLUCOSE METER (BEAKER) (test code = 1538) 124 mg/dL 70-110 H TESTED AT [address] [address] [id number] 06:01:00* Test Item Value Reference Range Interpretation Comments MAGNESIUM (BEAKER) (test code = 627) 1.9 mg/dL 1.6-2.6 BASIC METABOLIC [id number] 06:01:00* Test Item Value Reference Range Interpretation Comments SODIUM (BEAKER) (test code = 381) 140 meq/L 136-145 POTASSIUM (BEAKER) (test code = 379) 4.2 meq/L 3.5-5.1 CHLORIDE (BEAKER) (test code = 382) 101 meq/L 98-107 CO2 (BEAKER) (test code = 355) 31 meq/L 22-29 H BLOOD UREA NITROGEN (BEAKER) (test code = 354) 25 mg/dL 7-21 H CREATININE (BEAKER) (test code = 358) 1.14 mg/dL 0.57-1.25 GLUCOSE RANDOM (BEAKER) (test code = 652) 95 mg/dL 70-105 CALCIUM (BEAKER) (test code = 697) 9.1 mg/dL 8.4-10.2 EGFR (BEAKER) (test code = 1092) 46 mL/min/1.73 sq m ESTIMATED GFR IS NOT ACCURATE CREATININE CLEARANCE IN PREDICTING GLOMERULAR FILTRATION RATE. ESTIMATED GFR IS NOT APPLICABLE FOR DIALYSIS PATIENTS. CBC W/PLT COUNT & AUTO [id number] 05:07:00* Test Item Value Reference Range Interpretation Comments WHITE BLOOD CELL COUNT (BEAKER) (test code = 775) 9.6 K/ L 3.5- 10.5 RED BLOOD CELL COUNT (BEAKER) (test code = 761) 3.76 M/ L 3.93-5 .22 L HEMOGLOBIN (BEAKER) (test code = 410) 10.5 GM/DL 11.2-15.7 L HEMATOCRIT (BEAKER) (test code = 411) 33.5 % 34.1-44.9 L MEAN CORPUSCULAR VOLUME (BEAKER) (test code = 753) 89.1 fL 79. 4-94.8 MEAN CORPUSCULAR HEMOGLOBIN (BEAKER) (test code = 751) 27.9 pg 25.6-32.2 MEAN CORPUSCULAR HEMOGLOBIN CONC (BEAKER) (test code = 752) 31.3 GM/DL 32.2-35.5 L RED CELL DISTRIBUTION WIDTH (BEAKER) (test code = 412) 17.2 % 11.7-14.4 H PLATELET COUNT (BEAKER) (test code = 756) 187 K/CU MM 150-450 MEAN PLATELET VOLUME (BEAKER) (test code = 754) 10.7 fL 9.4-12 .3 NUCLEATED RED BLOOD CELLS (BEAKER) (test code = 413) 0 /100 WBC 0 -0 NEUTROPHILS RELATIVE PERCENT (BEAKER) (test code = 429) 74 % LYMPHOCYTES RELATIVE PERCENT (BEAKER) (test code = 430) 12 % MONOCYTES RELATIVE PERCENT (BEAKER) (test code = 431) 9 % EOSINOPHILS RELATIVE PERCENT (BEAKER) (test code = 432) 3 % BASOPHILS RELATIVE PERCENT (BEAKER) (test code = 437) 0 % NEUTROPHILS ABSOLUTE COUNT (BEAKER) (test code = 670) 7.04 K/ L 1.56-6.13 H LYMPHOCYTES ABSOLUTE COUNT (BEAKER) (test code = 414) 1.18 K/ L 1.18-3.74 MONOCYTES ABSOLUTE COUNT (BEAKER) (test code = 415) 0.84 K/ L 0. 24-0.36 H EOSINOPHILS ABSOLUTE COUNT (BEAKER) (test code = 416) 0.31 K/ L 0.04-0.36 BASOPHILS ABSOLUTE COUNT (BEAKER) (test code = 417) 0.04 K/ L 0. 01-0.08 IMMATURE GRANULOCYTES-RELATIVE PERCENT (BEAKER) (test code = 2801) 2 % 0-1 H POCT-GLUCOSE [id number] 21:16:00* Test Item Value Reference Range Interpretation Comments POC-GLUCOSE METER (BEAKER) (test code = 1538) 132 mg/dL 70-110 H TESTED AT [address] [address] POCT-GLUCOSE [id number] 16:56:00* Test Item Value Reference Range Interpretation Comments POC-GLUCOSE METER (BEAKER) (test code = 1538) 131 mg/dL 70-110 H TESTED AT [address] [address] POCT-GLUCOSE [id number] 12:37:00* Test Item Value Reference Range Interpretation Comments POC-GLUCOSE METER (BEAKER) (test code = 1538) 130 mg/dL 70-110 H TESTED AT [address] [address] POCT-GLUCOSE [id number] 07:55:00* Test Item Value Reference Range Interpretation Comments POC-GLUCOSE METER (BEAKER) (test code = 1538) 118 mg/dL 70-110 H TESTED AT [address] [address] [id number] 05:43:00* Test Item Value Reference Range Interpretation Comments FERRITIN (BEAKER) (test code = 361) 56 ng/mL 5-275 VITAMIN B12 AND [id number] 05:43:00* Test Item Value Reference Range Interpretation Comments VITAMIN B12 (BEAKER) (test code = 774) 208 pg/mL 213-816 L FOLATE (BEAKER) (test code = 362) 5.0 ng/mL >=7.0 L C-REACTIVE [id number] 05:16:00* Test Item Value Reference Range Interpretation Comments C-REACTIVE PROTEIN (BEAKER) (test code = 676) 0.92 mg/dL 0.00-0.5 0 H [id number] 05:12:00* Test Item Value Reference Range Interpretation Comments MAGNESIUM (BEAKER) (test code = 627) 2.0 mg/dL 1.6-2.6 BASIC METABOLIC [id number] 05:12:00* Test Item Value Reference Range Interpretation Comments SODIUM (BEAKER) (test code = 381) 141 meq/L 136-145 POTASSIUM (BEAKER) (test code = 379) 4.0 meq/L 3.5-5.1 CHLORIDE (BEAKER) (test code = 382) 104 meq/L 98-107 CO2 (BEAKER) (test code = 355) 30 meq/L 22-29 H BLOOD UREA NITROGEN (BEAKER) (test code = 354) 25 mg/dL 7-21 H CREATININE (BEAKER) (test code = 358) 1.24 mg/dL 0.57-1.25 GLUCOSE RANDOM (BEAKER) (test code = 652) 91 mg/dL 70-105 CALCIUM (BEAKER) (test code = 697) 8.4 mg/dL 8.4-10.2 EGFR (BEAKER) (test code = 1092) 42 mL/min/1.73 sq m ESTIMATED GFR IS NOT ACCURATE CREATININE CLEARANCE IN PREDICTING GLOMERULAR FILTRATION RATE. ESTIMATED GFR IS NOT APPLICABLE FOR DIALYSIS PATIENTS. IRON, TIBC, % SAT. (WITHOUT FERRITIN)2018-11-22 05:10:00* Test Item Value Reference Range Interpretation Comments IRON (BEAKER) (test code = 547) 35.0 ug/dL 40.0-160.0 L TOTAL IRON BINDING CAPACITY (BEAKER) (test code = 769) 256 ug/dL 250-450 IRON % SATURATION (2) (BEAKER) (test code = 2590) 14 % 20-5 5 L RETICULOCYTE [id number] 04:47:00* Test Item Value Reference Range Interpretation Comments RETICULOCYTE COUNT PCT (BEAKER) (test code = 575) 2.7 % 0.5- 1.7 H POCT-GLUCOSE [id number] 20:31:00* Test Item Value Reference Range Interpretation Comments POC-GLUCOSE METER (BEAKER) (test code = 1538) 116 mg/dL 70-110 H TESTED AT [address] [address] POCT-GLUCOSE [id number] 16:06:00* Test Item Value Reference Range Interpretation Comments POC-GLUCOSE METER (BEAKER) (test code = 1538) 176 mg/dL 70-110 H TESTED AT [address] [address] POCT-GLUCOSE [id number] 12:19:00* Test Item Value Reference Range Interpretation Comments POC-GLUCOSE METER (BEAKER) (test code = 1538) 119 mg/dL 70-110 H TESTED AT [address] [address] POCT-GLUCOSE [id number] 07:47:00* Test Item Value Reference Range Interpretation Comments POC-GLUCOSE METER (BEAKER) (test code = 1538) 110 mg/dL 70-110 TESTED AT [address] [address] [id number] 06:25:00* Test Item Value Reference Range Interpretation Comments PHOSPHORUS (BEAKER) (test code = 604) 3.7 mg/dL 2.3-4.7 [id number] 06:25:00* Test Item Value Reference Range Interpretation Comments MAGNESIUM (BEAKER) (test code = 627) 2.0 mg/dL 1.6-2.6 BASIC METABOLIC [id number] 06:25:00* Test Item Value Reference Range Interpretation Comments SODIUM (BEAKER) (test code = 381) 143 meq/L 136-145 POTASSIUM (BEAKER) (test code = 379) 3.8 meq/L 3.5-5.1 CHLORIDE (BEAKER) (test code = 382) 107 meq/L 98-107 CO2 (BEAKER) (test code = 355) 30 meq/L 22-29 H BLOOD UREA NITROGEN (BEAKER) (test code = 354) 21 mg/dL 7-21 CREATININE (BEAKER) (test code = 358) 1.14 mg/dL 0.57-1.25 GLUCOSE RANDOM (BEAKER) (test code = 652) 96 mg/dL 70-105 CALCIUM (BEAKER) (test code = 697) 8.5 mg/dL 8.4-10.2 EGFR (BEAKER) (test code = 1092) 46 mL/min/1.73 sq m ESTIMATED GFR IS NOT ACCURATE CREATININE CLEARANCE IN PREDICTING GLOMERULAR FILTRATION RATE. ESTIMATED GFR IS NOT APPLICABLE FOR DIALYSIS PATIENTS. CBC W/PLT COUNT & AUTO [id number] 05:35:00* Test Item Value Reference Range Interpretation Comments WHITE BLOOD CELL COUNT (BEAKER) (test code = 775) 7.5 K/ L 3.5- 10.5 RED BLOOD CELL COUNT (BEAKER) (test code = 761) 3.52 M/ L 3.93-5 .22 L HEMOGLOBIN (BEAKER) (test code = 410) 9.7 GM/DL 11.2-15.7 L HEMATOCRIT (BEAKER) (test code = 411) 31.9 % 34.1-44.9 L MEAN CORPUSCULAR VOLUME (BEAKER) (test code = 753) 90.6 fL 79. 4-94.8 MEAN CORPUSCULAR HEMOGLOBIN (BEAKER) (test code = 751) 27.6 pg 25.6-32.2 MEAN CORPUSCULAR HEMOGLOBIN CONC (BEAKER) (test code = 752) 30.4 GM/DL 32.2-35.5 L RED CELL DISTRIBUTION WIDTH (BEAKER) (test code = 412) 17.2 % 11.7-14.4 H PLATELET COUNT (BEAKER) (test code = 756) 161 K/CU MM 150-450 MEAN PLATELET VOLUME (BEAKER) (test code = 754) 10.4 fL 9.4-12 .3 NUCLEATED RED BLOOD CELLS (BEAKER) (test code = 413) 0 /100 WBC 0 -0 NEUTROPHILS RELATIVE PERCENT (BEAKER) (test code = 429) 78 % LYMPHOCYTES RELATIVE PERCENT (BEAKER) (test code = 430) 10 % MONOCYTES RELATIVE PERCENT (BEAKER) (test code = 431) 8 % EOSINOPHILS RELATIVE PERCENT (BEAKER) (test code = 432) 3 % BASOPHILS RELATIVE PERCENT (BEAKER) (test code = 437) 0 % NEUTROPHILS ABSOLUTE COUNT (BEAKER) (test code = 670) 5.87 K/ L 1.56-6.13 LYMPHOCYTES ABSOLUTE COUNT (BEAKER) (test code = 414) 0.71 K/ L 1.18-3.74 L MONOCYTES ABSOLUTE COUNT (BEAKER) (test code = 415) 0.59 K/ L 0. 24-0.36 H EOSINOPHILS ABSOLUTE COUNT (BEAKER) (test code = 416) 0.24 K/ L 0.04-0.36 BASOPHILS ABSOLUTE COUNT (BEAKER) (test code = 417) 0.02 K/ L 0. 01-0.08 IMMATURE GRANULOCYTES-RELATIVE PERCENT (BEAKER) (test code = 2801) 1 % 0-1 POCT-GLUCOSE [id number] 21:13:00* Test Item Value Reference Range Interpretation Comments POC-GLUCOSE METER (BEAKER) (test code = 1538) 157 mg/dL 70-110 H TESTED AT [facility] [address] [facility] [address] [address], CHEST, WITHOUT [id number] 19:37:00Reason for exam:->SHORTNESS OF BREATHFINAL REPORT EXAM: CT of the chest, without contrast CLINICAL HISTORY: Shortness of breath. Technique: CT of the chest was performed without intravenous contrast administration. This exam was performed according to our departmental dose optimization program which includes automated exposure control, adjustment of the mA and/or kV according to patient's size and/or use of iterative reconstructive technique. COMPARISON: None FINDINGS: LOWER NECK: Within normal limits.AIRWAYS, PLEURA AND LUNGS: Patent central tracheobronchial tree. Small bilateral pleural effusions with associated compressive atelectasis. Discoid atelectasis in the lingula. Bilateral groundglass opacities with interlobular septal thickening which may represent mild pulmonary edema. Small patchy airspace opacities in the right upper lobe which may represent focal edema, pneumonia or atelectasis. Bilateral mosaic attenuation compatible with air trapping, right greater than left.VESSELS: Atherosclerotic calcifications of the aorta and branches. No thoracic aortic aneurysm.HEART: Mild cardiomegaly. Small pericardial fluid. WANDY AND MEDIASTINUM: Within normal limits.VISUALIZED UPPER ABDOMEN: 1.2 cm calcified splenic artery aneurysm.SOFT TISSUES: Within normal limits.BONES: Severe chronic compression deformity of the T12 vertebral body with retropulsion. Degenerative changes of the visualized spine and right shoulder IMPRESSION:Mild cardiomegaly.Findings which may represent mild pulmonary edema.Small bilateral p leural effusions with compressive atelectasis. Discoid atelectasis in the lingul a.Small patchy opacities in the right upper lobe which may represent focal edema , pneumonia or atelectasis. Signed: Matthew Prettyeport Verified Date/Time: 11/20/2018 19:37:22 Electronically signed by: MATTHEW PRETTY MD on 07:37 PM CREATININE, RANDOM [id number] 19:26:00* Test Item Value Reference Range Interpretation Comments CREATININE URINE (BEAKER) (test code = 375) 14.0 mg/dL Reference Range: No NormalsPROTEIN, RANDOM [id number] 19:26:00* Test Item Value Reference Range Interpretation Comments PROTEIN, URINE (BEAKER) (test code = 1569) 39 mg/dL 0-14 H TSH/FREE T4 IF [id number] 17:31:00* Test Item Value Reference Range Interpretation Comments THYROID STIMULATING HORMONE (BEAKER) (test code = 772) 4.55 uIU/mL 0.35-4.94 POCT-GLUCOSE [id number] 16:53:00* Test Item Value Reference Range Interpretation Comments POC-GLUCOSE METER (BEAKER) (test code = 1538) 116 mg/dL 70-110 H TESTED AT [facility] [address] [facility] [address] HEPATIC FUNCTION [id number] 16:25:00* Test Item Value Reference Range Interpretation Comments TOTAL PROTEIN (BEAKER) (test code = 770) 6.1 gm/dL 6.0-8.3 ALBUMIN (BEAKER) (test code = 1145) 3.7 g/dL 3.5-5.0 BILIRUBIN TOTAL (BEAKER) (test code = 377) 0.8 mg/dL 0.2-1.2 BILIRUBIN DIRECT (BEAKER) (test code = 706) 0.5 mg/dL 0.1-0.5 ALKALINE PHOSPHATASE (BEAKER) (test code = 346) 72 U/L 40-150 AST (SGOT) (BEAKER) (test code = 353) 10 U/L 5-34 ALT (SGPT) (BEAKER) (test code = 347) 7 U/L 6-55 B-TYPE NATRIURETIC FACTOR (BNP)2018-11-20 12:38:00* Test Item Value Reference Range Interpretation Comments B-TYPE NATRIURETIC PEPTIDE (BEAKER) (test code = 700) 367 pg/mL 0-100 H TROPONIN [id number] 12:37:00* Test Item Value Reference Range Interpretation Comments TROPONIN I (BEAKER) (test code = 397) 0.01 ng/mL 0.00-0.03 Troponin I (TnI) levels must be interpreted in the context of the presenting sym ptoms and the clinical findings. Elevated TnI levels indicate myocardial damage, but are not specific for ischemic heart disease. Elevated TnI levels are seen i n patients with other cardiac conditions (including myocarditis and congestive h eart failure), and slight TnI elevations occur in patients with other conditions , including sepsis, renal failure, acidosis, acute neurological disease, and per sistent tachyarrhythmia.[id number] 12:31:00* Test Item Value Reference Range Interpretation Comments MAGNESIUM (BEAKER) (test code = 627) 2.1 mg/dL 1.6-2.6 BASIC METABOLIC [id number] 12:31:00* Test Item Value Reference Range Interpretation Comments SODIUM (BEAKER) (test code = 381) 144 meq/L 136-145 POTASSIUM (BEAKER) (test code = 379) 3.8 meq/L 3.5-5.1 CHLORIDE (BEAKER) (test code = 382) 105 meq/L 98-107 CO2 (BEAKER) (test code = 355) 30 meq/L 22-29 H BLOOD UREA NITROGEN (BEAKER) (test code = 354) 23 mg/dL 7-21 H CREATININE (BEAKER) (test code = 358) 1.42 mg/dL 0.57-1.25 H GLUCOSE RANDOM (BEAKER) (test code = 652) 140 mg/dL 70-105 H CALCIUM (BEAKER) (test code = 697) 9.2 mg/dL 8.4-10.2 EGFR (BEAKER) (test code = 1092) 36 mL/min/1.73 sq m ESTIMATED GFR IS NOT ACCURATE CREATININE CLEARANCE IN PREDICTING GLOMERULAR FILTRATION RATE. ESTIMATED GFR IS NOT APPLICABLE FOR DIALYSIS PATIENTS. CREATINE KINASE (CK)2018-11-20 12:31:00* Test Item Value Reference Range Interpretation Comments CREATINE KINASE TOTAL (BEAKER) (test code = 380) 15 U/L 29-20 0 L CBC W/PLT COUNT & AUTO [id number] 12:01:00* Test Item Value Reference Range Interpretation Comments WHITE BLOOD CELL COUNT (BEAKER) (test code = 775) 6.7 K/ L 3.5- 10.5 RED BLOOD CELL COUNT (BEAKER) (test code = 761) 3.80 M/ L 3.93-5 .22 L HEMOGLOBIN (BEAKER) (test code = 410) 10.6 GM/DL 11.2-15.7 L HEMATOCRIT (BEAKER) (test code = 411) 34.6 % 34.1-44.9 MEAN CORPUSCULAR VOLUME (BEAKER) (test code = 753) 91.1 fL 79. 4-94.8 MEAN CORPUSCULAR HEMOGLOBIN (BEAKER) (test code = 751) 27.9 pg 25.6-32.2 MEAN CORPUSCULAR HEMOGLOBIN CONC (BEAKER) (test code = 752) 30.6 GM/DL 32.2-35.5 L RED CELL DISTRIBUTION WIDTH (BEAKER) (test code = 412) 17.1 % 11.7-14.4 H PLATELET COUNT (BEAKER) (test code = 756) 182 K/CU MM 150-450 MEAN PLATELET VOLUME (BEAKER) (test code = 754) 10.7 fL 9.4-12 .3 NUCLEATED RED BLOOD CELLS (BEAKER) (test code = 413) 0 /100 WBC 0 -0 NEUTROPHILS RELATIVE PERCENT (BEAKER) (test code = 429) 76 % LYMPHOCYTES RELATIVE PERCENT (BEAKER) (test code = 430) 11 % MONOCYTES RELATIVE PERCENT (BEAKER) (test code = 431) 9 % EOSINOPHILS RELATIVE PERCENT (BEAKER) (test code = 432) 3 % BASOPHILS RELATIVE PERCENT (BEAKER) (test code = 437) 1 % NEUTROPHILS ABSOLUTE COUNT (BEAKER) (test code = 670) 5.08 K/ L 1.56-6.13 LYMPHOCYTES ABSOLUTE COUNT (BEAKER) (test code = 414) 0.71 K/ L 1.18-3.74 L MONOCYTES ABSOLUTE COUNT (BEAKER) (test code = 415) 0.60 K/ L 0. 24-0.36 H EOSINOPHILS ABSOLUTE COUNT (BEAKER) (test code = 416) 0.21 K/ L 0.04-0.36 BASOPHILS ABSOLUTE COUNT (BEAKER) (test code = 417) 0.04 K/ L 0. 01-0.08 IMMATURE GRANULOCYTES-RELATIVE PERCENT (BEAKER) (test code = 2801) 1 % 0-1 URINALYSIS W/ REFLEX URINE [id number] 11:38:00* Test Item Value Reference Range Interpretation Comments COLOR (BEAKER) (test code = 470) Yellow CLARITY (BEAKER) (test code = 469) Hazy SPECIFIC GRAVITY UA (BEAKER) (test code = 468) 1.013 1.001-1 .035 PH UA (BEAKER) (test code = 467) 6.0 5.0-8.0 PROTEIN UA (BEAKER) (test code = 464) 200 mg/dL Negative A GLUCOSE UA (BEAKER) (test code = 365) Negative Negative KETONES UA (BEAKER) (test code = 371) Negative Negative BILIRUBIN UA (BEAKER) (test code = 462) Negative Negative BLOOD UA (BEAKER) (test code = 461) Negative Negative NITRITE UA (BEAKER) (test code = 465) Negative Negative LEUKOCYTE ESTERASE UA (BEAKER) (test code = 466) Large Negat andrade A UROBILINOGEN UA (BEAKER) (test code = 463) 2.0 mg/dL 0.2-1.0 H RBC UA (BEAKER) (test code = 519) 2 /HPF WBC UA (BEAKER) (test code = 520) 227 /HPF BACTERIA (BEAKER) (test code = 517) Many SQUAMOUS EPITHELIAL (BEAKER) (test code = 516) 2 /HPF HYALINE CASTS (BEAKER) (test code = 514) 9 /LPF SOURCE(BEAKER) (test code = 2795) RAD, CHEST, 1 VIEW, NON [id number] 11:34:00Reason for exam:->dyspneaFINAL REPORT CLINICAL HISTORY: dyspnea TECHNIQUE: 1 view of the chest. COMPARISON: 07/25/2018 IMPRESSION: Left lower lung pleural-parenchymal opacity is unchanged. Right hilar fullness and right infrahilar lung opacity is also unchanged. Blunting of the right costophrenic angle is again seen. The cardiomediastinal silhouette is magnified by technique. Signed: Maria C Mg MD Report Verified Date/Time: 11/20/2018 11:34:26 Reading Location: [facility] Radiology Reading Room Electronically signed by: MARIA C MG M.D. on 11:34 AM AFB CULTURE + [id number] 10:21:00* Test Item Value Reference Range Interpretation Comments CULTURE (BEAKER) (test code = 1095) No acid-fast bacilli isolate d in 42 days AFB SMEAR (BEAKER) (test code = 994) No acid fast bacilli seen FUNGUS CULTURE + [id number] 16:16:00* Test Item Value Reference Range Interpretation Comments CULTURE (BEAKER) (test code = 1095) No fungus isolated in 28 days FUNGUS SMEAR (BEAKER) (test code = 1406) No fungi seen TISSUE [id number] 12:51:00Surgical Pathology Report Case: [id number] Authorizing Provider: Tito John, Collected: 07/20/2018 0849 Ordering Location: [facility] CV Recovery Room 2 Received: 07/22/2018 0910 Pathologist: Berto Hernández MD Specimen: Pericardium, Tissue- pericardium SOFT TISSUE, PERICARDIUM, EXCISION: - FIBROMEMBRANOUS TISSUE WITH MILD CHRONIC INFLAMMATION AND REACTIVE CHANGES Signing Pathologist Direct Phone Line: [phone] signed by Berto Hernández MD on 07/28/2018 at 12:51 PMA congo red stain is negative for apple green birefringence. 22362, [id number] effusion A. Tissue pericardium The case was received in one part labeled with the patient's information and [id number], which corresponds with accompanying requisition slip.Received in formalin, labeled with the patient's information and "A. Tissue pericardium" is a 1 x 0.6 x 0.4 cm wilburn-whi te, irregular, rubbery fragment of soft tissue. It is bisected and entirely subm itted in one cassette, cassette A1. SC/ew Performed.The interpretation of this c ase included the use of immunohistochemistry or special stains.Control Slides Ex amined: In-house known positive controls were evaluated along with the test tis ju. These control slides run alongside of the patients sample show appropriate staining. Internal positive and negative controls when available are evaluated Immunohistochemistry technical testing was performed at [facility], Pathology Laboratory where it was developed and its performance charac teristics were determined. It has not been cleared or approved by the U.S. Food and Drug Administration. The FDA has determined that such clearance or approval is not necessary. The test is used for clinical purposes. It should not be regar ded as investigational or for research. This laboratory is certified under the C linical Laboratory Improvement Amendments of 1988 (CLIA-88) as qualified to perf orm high complexity clinical laboratory testing.ANAEROBIC [id number] 08:21:00* Test Item Value Reference Range Interpretation Comments CULTURE (BEAKER) (test code = 1095) No anaerobes isolated POCT-GLUCOSE [id number] 12:15:00* Test Item Value Reference Range Interpretation Comments POC-GLUCOSE METER (BEAKER) (test code = 1538) 134 mg/dL 70-110 H TESTED AT [facility] [address] [facility] [address] POCT-GLUCOSE [id number] 08:20:00* Test Item Value Reference Range Interpretation Comments POC-GLUCOSE METER (BEAKER) (test code = 1538) 121 mg/dL 70-110 H TESTED AT [facility] [address] [address] [id number] 05:33:00* Test Item Value Reference Range Interpretation Comments MAGNESIUM (BEAKER) (test code = 627) 2.2 mg/dL 1.6-2.6 BASIC METABOLIC [id number] 05:33:00* Test Item Value Reference Range Interpretation Comments SODIUM (BEAKER) (test code = 381) 142 meq/L 136-145 POTASSIUM (BEAKER) (test code = 379) 4.4 meq/L 3.5-5.1 CHLORIDE (BEAKER) (test code = 382) 104 meq/L 98-107 CO2 (BEAKER) (test code = 355) 31 meq/L 22-29 H BLOOD UREA NITROGEN (BEAKER) (test code = 354) 40 mg/dL 7-21 H CREATININE (BEAKER) (test code = 358) 1.22 mg/dL 0.57-1.25 GLUCOSE RANDOM (BEAKER) (test code = 652) 108 mg/dL 70-105 H CALCIUM (BEAKER) (test code = 697) 8.6 mg/dL 8.4-10.2 EGFR (BEAKER) (test code = 1092) 42 mL/min/1.73 sq m ESTIMATED GFR IS NOT ACCURATE CREATININE CLEARANCE IN PREDICTING GLOMERULAR FILTRATION RATE. ESTIMATED GFR IS NOT APPLICABLE FOR DIALYSIS PATIENTS. POCT-GLUCOSE [id number] 23:19:00* Test Item Value Reference Range Interpretation Comments POC-GLUCOSE METER (BEAKER) (test code = 1538) 204 mg/dL 70-110 H TESTED AT [facility] [address] [address] POCT-GLUCOSE [id number] 17:29:00* Test Item Value Reference Range Interpretation Comments POC-GLUCOSE METER (BEAKER) (test code = 1538) 144 mg/dL 70-110 H TESTED AT [address] [address] POCT-GLUCOSE [id number] 12:09:00* Test Item Value Reference Range Interpretation Comments POC-GLUCOSE METER (BEAKER) (test code = 1538) 130 mg/dL 70-110 H TESTED AT [address] [address] POCT-GLUCOSE [id number] 07:54:00* Test Item Value Reference Range Interpretation Comments POC-GLUCOSE METER (BEAKER) (test code = 1538) 127 mg/dL 70-110 H TESTED AT [address] [address] RAD, CHEST, 1 VIEW, NON [id number] 06:50:00Reason for exam:->Status post CV SurgeryShould this be performed at the bedside?->YesFINAL REPORT RAD, CHEST, 1 VIEW, NON DEPT INDICATION: Status post CV Surgery COMPARISON: Prior day's exam FINDINGS: Portable frontal view of the chest. IMPRESSION: Lungs and pleura: Unchanged airspace and pleural opacities. No pneumothorax.Heart and mediastinum: Stable contours. Additional findings: None. Signed: Lucía Mayo Verified Date/Time: 07/25/2018 06:50:14 [id number] 06:39:00* Test Item Value Reference Range Interpretation Comments MAGNESIUM (BEAKER) (test code = 627) 2.4 mg/dL 1.6-2.6 BASIC METABOLIC [id number] 06:39:00* Test Item Value Reference Range Interpretation Comments SODIUM (BEAKER) (test code = 381) 141 meq/L 136-145 POTASSIUM (BEAKER) (test code = 379) 4.8 meq/L 3.5-5.1 CHLORIDE (BEAKER) (test code = 382) 106 meq/L 98-107 CO2 (BEAKER) (test code = 355) 28 meq/L 22-29 BLOOD UREA NITROGEN (BEAKER) (test code = 354) 45 mg/dL 7-21 H CREATININE (BEAKER) (test code = 358) 1.46 mg/dL 0.57-1.25 H GLUCOSE RANDOM (BEAKER) (test code = 652) 108 mg/dL 70-105 H CALCIUM (BEAKER) (test code = 697) 8.4 mg/dL 8.4-10.2 EGFR (BEAKER) (test code = 1092) 34 mL/min/1.73 sq m ESTIMATED GFR IS NOT ACCURATE CREATININE CLEARANCE IN PREDICTING GLOMERULAR FILTRATION RATE. ESTIMATED GFR IS NOT APPLICABLE FOR DIALYSIS PATIENTS. POCT-GLUCOSE [id number] 22:08:00* Test Item Value Reference Range Interpretation Comments POC-GLUCOSE METER (BEAKER) (test code = 1538) 131 mg/dL 70-110 H TESTED AT [facility] [address] [address] POCT-GLUCOSE [id number] 17:44:00* Test Item Value Reference Range Interpretation Comments POC-GLUCOSE METER (BEAKER) (test code = 1538) 185 mg/dL 70-110 H TESTED AT [facility] [address] [address] PROTEIN ELECTROPHORESIS, [id number] 15:57:00* Test Item Value Reference Range Interpretation Comments ALBUMIN FRACTION (BEAKER) (test code = 405) 2.9 g/dL 3.5-5.5 L ALPHA 1 FRACTION (BEAKER) (test code = 389) 0.3 g/dL 0.2-0.4 ALPHA 2 FRACTION (BEAKER) (test code = 390) 0.6 g/dL 0.5-0.9 BETA FRACTION (BEAKER) (test code = 392) 0.8 g/dL 0.6-1.1 GAMMA GLOBULIN FRACTION (BEAKER) (test code = 391) 0.5 g/dL 0.7 -1.7 L INTERPRETATION-119 (BEAKER) (test code = 2615) Gamma g lobulins decreased. Suggest urine protein electrophoresis if light chain disease is suspected. [id number] (BEAKER) (test code = 2616) Jose Farias M.D. (electonic signature) PROTEIN TOTAL SERUM, SPEP (BEAKER) (test code = 2660) 5.1 gm/dL 6.0-8.3 L Low albumin content also noted.POCT-GLUCOSE [id number] 14:16:00* Test Item Value Reference Range Interpretation Comments POC-GLUCOSE METER (BEAKER) (test code = 1538) 110 mg/dL 70-110 TESTED AT [facility] [address] [address] RAD, CHEST, 2 [id number] 11:22:00Reason for exam:->evaluate size of left pleural effusionFINAL REPORT Chest, two views. MEDICAL HISTORY: Evaluate size of left pleural effusion. COMPARISON STUDY: July 24, 2018. FINDINGS: The cardiac size is enlarged. A small left-sided pleural effusion is seen with adjacent atelectasis or consolidation. Pulmonary venous congestion is noted. There are increased interstitial markings. No pneumothorax is seen. Degenerative changes are seen. There is a high-grade compression fracture in the lower thoracic spine, age indeterminant in nature. IMPRESSION: Findings consistent with CHF with small left pleural effusion, slightly more pronounced than on previous. In the right clinical setting, a superimposed infection would be difficult to exclude. Clinical correlation and short term imaging follow-up could be made to exclude other etiologies. Signed: Leyla Owens Verified Date/Time: 07/24/2018 11:22:41 Reading Location: [facility] B1 C013X Ortho Consult Reading Room -GLUCOSE [id number] 08:04:00* Test Item Value Reference Range Interpretation Comments POC-GLUCOSE METER (BEAKER) (test code = 1538) 98 mg/dL 70-110 TESTED AT [facility] [address] [address] RAD, CHEST, 1 VIEW, NON [id number] 07:53:00Reason for exam:->Status post CV SurgeryShould this be performed at the bedside?->YesFINAL REPORT INDICATION: Status post CV Surgery TECHNIQUE: Chest radiograph, single view, portable technique. FINDINGS / IMPRESSION: Pulmonary venous congestion has improved and interval decrease in size of left pleural effusion. Heart shadow appears normal in size. No pneumothorax. Signed: Ba Reed MDReport Verified Date/Time: 07/24/2018 07:53:03 Reading Location: [facility] Radiology Reading Room [id number] 04:37:00* Test Item Value Reference Range Interpretation Comments PHOSPHORUS (BEAKER) (test code = 604) 3.1 mg/dL 2.3-4.7 [id number] 04:37:00* Test Item Value Reference Range Interpretation Comments MAGNESIUM (BEAKER) (test code = 627) 2.2 mg/dL 1.6-2.6 BASIC METABOLIC [id number] 04:37:00* Test Item Value Reference Range Interpretation Comments SODIUM (BEAKER) (test code = 381) 139 meq/L 136-145 POTASSIUM (BEAKER) (test code = 379) 4.9 meq/L 3.5-5.1 CHLORIDE (BEAKER) (test code = 382) 103 meq/L 98-107 CO2 (BEAKER) (test code = 355) 31 meq/L 22-29 H BLOOD UREA NITROGEN (BEAKER) (test code = 354) 47 mg/dL 7-21 H CREATININE (BEAKER) (test code = 358) 1.65 mg/dL 0.57-1.25 H GLUCOSE RANDOM (BEAKER) (test code = 652) 99 mg/dL 70-105 CALCIUM (BEAKER) (test code = 697) 8.2 mg/dL 8.4-10.2 L EGFR (BEAKER) (test code = 1092) 30 mL/min/1.73 sq m ESTIMATED GFR IS NOT ACCURATE CREATININE CLEARANCE IN PREDICTING GLOMERULAR FILTRATION RATE. ESTIMATED GFR IS NOT APPLICABLE FOR DIALYSIS PATIENTS. POCT-GLUCOSE [id number] 21:57:00* Test Item Value Reference Range Interpretation Comments POC-GLUCOSE METER (BEAKER) (test code = 1538) 105 mg/dL 70-110 TESTED AT [facility] [address] [facility] [address] POCT-GLUCOSE [id number] 17:38:00* Test Item Value Reference Range Interpretation Comments POC-GLUCOSE METER (BEAKER) (test code = 1538) 101 mg/dL 70-110 TESTED AT [place] [id number] [facility] [address] POCT-GLUCOSE [id number] 13:41:00* Test Item Value Reference Range Interpretation Comments POC-GLUCOSE METER (BEAKER) (test code = 1538) 183 mg/dL 70-110 H TESTED AT [address] [address] [id number] 10:51:00* Test Item Value Reference Range Interpretation Comments POTASSIUM (BEAKER) (test code = 379) 5.0 meq/L 3.5-5.1 SURGICALLY OBTAINED CULTURE + GRAM [id number] 10:38:00* Test Item Value Reference Range Interpretation Comments CULTURE (BEAKER) (test code = 1095) No growth POCT-GLUCOSE [id number] 09:11:00* Test Item Value Reference Range Interpretation Comments POC-GLUCOSE METER (BEAKER) (test code = 1538) 100 mg/dL 70-110 TESTED AT [address] [address] RAD, CHEST, 1 VIEW, NON [id number] 08:57:00Reason for exam:->post-opShould this be performed at the bedside?->YesFINAL REPORT Chest dated 07/23/2018 COMPARISON: 07/22/2018 Clinical Information: post-op Comment: Heart is enlarged. Pulmonary vasculature is indistinct. Interstitial disease is seen bilaterally suggestive of pulmonary edema. There is small left pleural effusion. Signed: Carroll Hopper MDReport Verified Date/Time: 07/23/2018 08:57:06 Reading Location: [facility] Radiology Reading Room -GLUCOSE METER 2018-07-23 07:03:00* Test Item Value Reference Range Interpretation Comments POC-GLUCOSE METER (BEAKER) (test code = 1538) 147 mg/dL 70-110 H TESTED AT [address] [address] BASIC METABOLIC [id number] 05:29:00* Test Item Value Reference Range Interpretation Comments SODIUM (BEAKER) (test code = 381) 137 meq/L 136-145 POTASSIUM (BEAKER) (test code = 379) 5.6 meq/L 3.5-5.1 H CHLORIDE (BEAKER) (test code = 382) 102 meq/L 98-107 CO2 (BEAKER) (test code = 355) 29 meq/L 22-29 BLOOD UREA NITROGEN (BEAKER) (test code = 354) 44 mg/dL 7-21 H CREATININE (BEAKER) (test code = 358) 1.92 mg/dL 0.57-1.25 H GLUCOSE RANDOM (BEAKER) (test code = 652) 94 mg/dL 70-105 CALCIUM (BEAKER) (test code = 697) 8.4 mg/dL 8.4-10.2 EGFR (BEAKER) (test code = 1092) 25 mL/min/1.73 sq m ESTIMATED GFR IS NOT ACCURATE CREATININE CLEARANCE IN PREDICTING GLOMERULAR FILTRATION RATE. ESTIMATED GFR IS NOT APPLICABLE FOR DIALYSIS PATIENTS. [id number] 05:18:00* Test Item Value Reference Range Interpretation Comments MAGNESIUM (BEAKER) (test code = 627) 2.2 mg/dL 1.6-2.6 CBC W/PLT COUNT & AUTO [id number] 05:09:00* Test Item Value Reference Range Interpretation Comments WHITE BLOOD CELL COUNT (BEAKER) (test code = 775) 11.8 K/ L 3.5- 10.5 H RED BLOOD CELL COUNT (BEAKER) (test code = 761) 3.95 M/ L 3.93-5 .22 HEMOGLOBIN (BEAKER) (test code = 410) 10.3 GM/DL 11.2-15.7 L HEMATOCRIT (BEAKER) (test code = 411) 33.9 % 34.1-44.9 L MEAN CORPUSCULAR VOLUME (BEAKER) (test code = 753) 85.8 fL 79. 4-94.8 MEAN CORPUSCULAR HEMOGLOBIN (BEAKER) (test code = 751) 26.1 pg 25.6-32.2 MEAN CORPUSCULAR HEMOGLOBIN CONC (BEAKER) (test code = 752) 30.4 GM/DL 32.2-35.5 L RED CELL DISTRIBUTION WIDTH (BEAKER) (test code = 412) 16.8 % 11.7-14.4 H PLATELET COUNT (BEAKER) (test code = 756) 172 K/CU MM 150-450 MEAN PLATELET VOLUME (BEAKER) (test code = 754) 11.0 fL 9.4-12 .3 NUCLEATED RED BLOOD CELLS (BEAKER) (test code = 413) 0 /100 WBC 0 -0 NEUTROPHILS RELATIVE PERCENT (BEAKER) (test code = 429) 75 % LYMPHOCYTES RELATIVE PERCENT (BEAKER) (test code = 430) 12 % MONOCYTES RELATIVE PERCENT (BEAKER) (test code = 431) 9 % EOSINOPHILS RELATIVE PERCENT (BEAKER) (test code = 432) 3 % BASOPHILS RELATIVE PERCENT (BEAKER) (test code = 437) 0 % NEUTROPHILS ABSOLUTE COUNT (BEAKER) (test code = 670) 8.90 K/ L 1.56-6.13 H LYMPHOCYTES ABSOLUTE COUNT (BEAKER) (test code = 414) 1.41 K/ L 1.18-3.74 MONOCYTES ABSOLUTE COUNT (BEAKER) (test code = 415) 1.05 K/ L 0. 24-0.36 H EOSINOPHILS ABSOLUTE COUNT (BEAKER) (test code = 416) 0.31 K/ L 0.04-0.36 BASOPHILS ABSOLUTE COUNT (BEAKER) (test code = 417) 0.03 K/ L 0. 01-0.08 IMMATURE GRANULOCYTES-RELATIVE PERCENT (BEAKER) (test code = 2801) 1 % 0-1 ANTI-NUCLEAR ANTIBODY (BENOIT)2018-07-23 04:11:00* Test Item Value Reference Range Interpretation Comments ANTI-NUCLEAR ANTIBODY (BENOIT) (BEAKER) (test code = 418) Negative Negative Test performed by IFA method.Test performed by IFA method.Test performed by IFA method.POCT-GLUCOSE [id number] 17:01:00* Test Item Value Reference Range Interpretation Comments POC-GLUCOSE METER (BEAKER) (test code = 1538) 142 mg/dL 70-110 H TESTED AT [facility] [address] [facility] [address] HEPATITIS B [id number] 15:23:00* Test Item Value Reference Range Interpretation Comments HEPATITIS B CORE TOTAL ANTIBODY (BEAKER) (test code = 497) N onreactive Nonreactive HEPATITIS B SURFACE ANTIBODY (BEAKER) (test code = 647) < mIU/mL <8.0 HEPATITIS B SURFACE ANTIGEN (2) (BEAKER) (test code = 2585) Nonreactive Nonreactive HEPATITIS C [id number] 15:18:00* Test Item Value Reference Range Interpretation Comments HEPATITIS C ANTIBODY (BEAKER) (test code = 367) Nonreactive Nonrea ctive HIV-1 ANTIGEN WITH HIV-1/2 [id number] 15:18:00* Test Item Value Reference Range Interpretation Comments HIV-1 ANTIGEN WITH HIV 1\\T\\2 ANTIBODY (2) (BEAKER) (te st code = 2586) Nonreactive Nonreactive POTASSIUM-STAT [id number] 15:04:00* Test Item Value Reference Range Interpretation Comments POTASSIUM (BEAKER) (test code = 379) 4.7 meq/L 3.6-5.5 BASIC METABOLIC [id number] 14:38:00* Test Item Value Reference Range Interpretation Comments SODIUM (BEAKER) (test code = 381) 135 meq/L 136-145 L POTASSIUM (BEAKER) (test code = 379) 5.2 meq/L 3.5-5.1 H Specimen slightly hemolyzed CHLORIDE (BEAKER) (test code = 382) 99 meq/L 98-107 CO2 (BEAKER) (test code = 355) 28 meq/L 22-29 BLOOD UREA NITROGEN (BEAKER) (test code = 354) 39 mg/dL 7-21 H CREATININE (BEAKER) (test code = 358) 2.07 mg/dL 0.57-1.25 H Specimen slightly hemolyzed GLUCOSE RANDOM (BEAKER) (test code = 652) 179 mg/dL 70-105 H CALCIUM (BEAKER) (test code = 697) 8.4 mg/dL 8.4-10.2 EGFR (BEAKER) (test code = 1092) 23 mL/min/1.73 sq m ESTIMATED GFR IS NOT ACCURATE CREATININE CLEARANCE IN PREDICTING GLOMERULAR FILTRATION RATE. ESTIMATED GFR IS NOT APPLICABLE FOR DIALYSIS PATIENTS. [id number] 14:31:00Medical Cytology Report Case: [id number] Authorizing Provider: Tito John, Collected: 07/20/2018 0814 Ordering Location: [facility] CV Recovery Room 2 Received: 07/22/2018 0843 Pathologist: Julianne Abdullahi MD Specimen: Pericardial PERICARDIAL FLUID (CYTOSPINS): - NEGATIVE FOR MALIGNANCY Signing Pathologist Direct Phone Line: [phone] signed by Julianne Abdullahi MD on 07/22/2018 at 2:31 PM The cytospins show blood, histiocytes and some fatty tissue. Negative for malignancy. Please see surgical case [id number] effusion, CHFPERICARDIAL FLUID 25 mls bloody fluid; 4 cytospinsCollected: [id number]: [id number] [facility], [facility] of [facility], [address] [place] [address], [facility], [facility], [address] [place] [address], [facility], [facility] of [facility], [address] [place] [address], DFOA-GLUCOSE [id number] 12:15:00* Test Item Value Reference Range Interpretation Comments POC-GLUCOSE METER (BEAKER) (test code = 1538) 156 mg/dL 70-110 H TESTED AT [address] [address] RHEUMATOID FACTOR AB, REFLEX TO [id number] 11:28:00* Test Item Value Reference Range Interpretation Comments RHEUMATOID FACTOR (BEAKER) (test code = 573) Negative RAD, CHEST, 1 VIEW, NON [id number] 11:24:00Reason for exam:->pericardial windowFINAL REPORT Follow up Chest radiograph Clinical History: Pericardial windowComparison: July 21, 2018Views: One Chest x-ray:The cardiac and mediastinal silhouettes are unchanged. There is no evidence of a pneumothorax. There is evidence of a probable left pleural effusion. There is no evidence of overt cardiac failure. There is evidence of a right perihilar and left lower lobe retrocardiac space focal parenchymal opacity. A drain is visualized overlying the cardiac silhouette Impression:Increased pulmonary vascular congestion. Signed: Jacquie Pedraza MDReport Verified Date/Time: 07/22/2018 11:24:24 Reading Location: [facility] Reading Room TITIS B SURFACE [id number] 10:19:00* Test Item Value Reference Range Interpretation Comments HEPATITIS B SURFACE ANTIGEN (2) (BEAKER) (test code = 2585) Nonreactive Nonreactive CYTOLOGY [id number] 10:02:00* Test Item Value Reference Range Interpretation Comments CYTOLOGY RESULT POINTER (BEAKER) (test code = 2629) See Separate Re port POCT-GLUCOSE [id number] 06:51:00* Test Item Value Reference Range Interpretation Comments POC-GLUCOSE METER (BEAKER) (test code = 1538) 91 mg/dL 70-110 TESTED AT [facility] [address] [place] [id number] BASIC METABOLIC [id number] 04:08:00* Test Item Value Reference Range Interpretation Comments SODIUM (BEAKER) (test code = 381) 136 meq/L 136-145 POTASSIUM (BEAKER) (test code = 379) 4.6 meq/L 3.5-5.1 CHLORIDE (BEAKER) (test code = 382) 100 meq/L 98-107 CO2 (BEAKER) (test code = 355) 31 meq/L 22-29 H BLOOD UREA NITROGEN (BEAKER) (test code = 354) 35 mg/dL 7-21 H CREATININE (BEAKER) (test code = 358) 1.94 mg/dL 0.57-1.25 H GLUCOSE RANDOM (BEAKER) (test code = 652) 111 mg/dL 70-105 H CALCIUM (BEAKER) (test code = 697) 8.1 mg/dL 8.4-10.2 L EGFR (BEAKER) (test code = 1092) 25 mL/min/1.73 sq m ESTIMATED GFR IS NOT ACCURATE CREATININE CLEARANCE IN PREDICTING GLOMERULAR FILTRATION RATE. ESTIMATED GFR IS NOT APPLICABLE FOR DIALYSIS PATIENTS. [id number] 04:00:00* Test Item Value Reference Range Interpretation Comments MAGNESIUM (BEAKER) (test code = 627) 2.1 mg/dL 1.6-2.6 CBC W/PLT COUNT & AUTO [id number] 03:55:00* Test Item Value Reference Range Interpretation Comments WHITE BLOOD CELL COUNT (BEAKER) (test code = 775) 12.5 K/ L 3.5- 10.5 H RED BLOOD CELL COUNT (BEAKER) (test code = 761) 3.74 M/ L 3.93-5 .22 L HEMOGLOBIN (BEAKER) (test code = 410) 9.7 GM/DL 11.2-15.7 L HEMATOCRIT (BEAKER) (test code = 411) 33.3 % 34.1-44.9 L MEAN CORPUSCULAR VOLUME (BEAKER) (test code = 753) 89.0 fL 79. 4-94.8 MEAN CORPUSCULAR HEMOGLOBIN (BEAKER) (test code = 751) 25.9 pg 25.6-32.2 MEAN CORPUSCULAR HEMOGLOBIN CONC (BEAKER) (test code = 752) 29.1 GM/DL 32.2-35.5 L RED CELL DISTRIBUTION WIDTH (BEAKER) (test code = 412) 17.0 % 11.7-14.4 H PLATELET COUNT (BEAKER) (test code = 756) 157 K/CU MM 150-450 MEAN PLATELET VOLUME (BEAKER) (test code = 754) 11.1 fL 9.4-12 .3 NUCLEATED RED BLOOD CELLS (BEAKER) (test code = 413) 0 /100 WBC 0 -0 NEUTROPHILS RELATIVE PERCENT (BEAKER) (test code = 429) 78 % LYMPHOCYTES RELATIVE PERCENT (BEAKER) (test code = 430) 10 % MONOCYTES RELATIVE PERCENT (BEAKER) (test code = 431) 9 % EOSINOPHILS RELATIVE PERCENT (BEAKER) (test code = 432) 2 % BASOPHILS RELATIVE PERCENT (BEAKER) (test code = 437) 0 % NEUTROPHILS ABSOLUTE COUNT (BEAKER) (test code = 670) 9.65 K/ L 1.56-6.13 H LYMPHOCYTES ABSOLUTE COUNT (BEAKER) (test code = 414) 1.20 K/ L 1.18-3.74 MONOCYTES ABSOLUTE COUNT (BEAKER) (test code = 415) 1.16 K/ L 0. 24-0.36 H EOSINOPHILS ABSOLUTE COUNT (BEAKER) (test code = 416) 0.30 K/ L 0.04-0.36 BASOPHILS ABSOLUTE COUNT (BEAKER) (test code = 417) 0.04 K/ L 0. 01-0.08 IMMATURE GRANULOCYTES-RELATIVE PERCENT (BEAKER) (test code = 2801) 1 % 0-1 POCT-GLUCOSE [id number] 22:28:00* Test Item Value Reference Range Interpretation Comments POC-GLUCOSE METER (BEAKER) (test code = 1538) 129 mg/dL 70-110 H TESTED AT [place] [id number] BLOOD GAS, [id number] 17:04:00* Test Item Value Reference Range Interpretation Comments PH ARTERIAL (BEAKER) (test code = 383) 7.37 7.35-7.45 PCO2 ARTERIAL (BEAKER) (test code = 384) 53 mmHg 35-45 H PO2 ARTERIAL (BEAKER) (test code = 385) 65 mmHg 80-90 L O2 SATURATION ARTERIAL (BEAKER) (test code = 386) 93.0 % 96.0 -97.0 L HCO3 ARTERIAL (BEAKER) (test code = 388) 30 mmol/L 21-29 H BASE EXCESS ARTERIAL (BEAKER) (test code = 387) 3.5 mmol/L -2.0-3 .0 H PATIENT TEMPERATURE (BEAKER) (test code = 1818) 36.0 C FIO2 (BEAKER) (test code = 1819) 32.0 % BLOOD GAS, [id number] 12:40:00* Test Item Value Reference Range Interpretation Comments PH ARTERIAL (BEAKER) (test code = 383) 7.35 7.35-7.45 PCO2 ARTERIAL (BEAKER) (test code = 384) 55 mmHg 35-45 H PO2 ARTERIAL (BEAKER) (test code = 385) 78 mmHg 80-90 L O2 SATURATION ARTERIAL (BEAKER) (test code = 386) 94.9 % 96.0 -97.0 L HCO3 ARTERIAL (BEAKER) (test code = 388) 30 mmol/L 21-29 H BASE EXCESS ARTERIAL (BEAKER) (test code = 387) 3.2 mmol/L -2.0-3 .0 H PATIENT TEMPERATURE (BEAKER) (test code = 1818) 36.7 C FIO2 (BEAKER) (test code = 1819) 36.0 % POCT-GLUCOSE [id number] 08:11:00* Test Item Value Reference Range Interpretation Comments POC-GLUCOSE METER (BEAKER) (test code = 1538) 118 mg/dL 70-110 H TESTED AT [address] [address] POCT-GLUCOSE [id number] 08:11:00* Test Item Value Reference Range Interpretation Comments POC-GLUCOSE METER (BEAKER) (test code = 1538) 107 mg/dL 70-110 TESTED AT [address] [address] BLOOD GAS, [id number] 06:34:00* Test Item Value Reference Range Interpretation Comments PH ARTERIAL (BEAKER) (test code = 383) 7.36 7.35-7.45 PCO2 ARTERIAL (BEAKER) (test code = 384) 58 mmHg 35-45 H PO2 ARTERIAL (BEAKER) (test code = 385) 59 mmHg 80-90 L O2 SATURATION ARTERIAL (BEAKER) (test code = 386) 89.3 % 96.0 -97.0 L HCO3 ARTERIAL (BEAKER) (test code = 388) 32 mmol/L 21-29 H BASE EXCESS ARTERIAL (BEAKER) (test code = 387) 5.2 mmol/L -2.0-3 .0 H PATIENT TEMPERATURE (BEAKER) (test code = 1818) 36.8 C FIO2 (BEAKER) (test code = 1819) 30.0 % RAD, CHEST, 1 VIEW, NON [id number] 05:20:00Reason for exam:->s/p pericardial effusion drainageShould this be performed at the bedside?->YesFINAL REPORT RAD, CHEST, 1 VIEW, NON DEPT INDICATION: s/p pericardial effusion drainage COMPARISON: Prior day's exam FINDINGS: Portable frontal view of the chest. IMPRESSION: Support Lines: None Lungs and pleura: Unchanged interstitial opacities compatible with interstitial edema and left lung base consolidation silhouetting the left hemidiaphragm. Left pleural effusion stable. No pneumothorax.Heart and mediastinum: Stable contours. Stable surgical c hanges.Additional findings: None. Signed: Hunter Barreto Verified Date /Time: 07/21/2018 05:20:54 IC ACID, [id number] 04:52:00* Test Item Value Reference Range Interpretation Comments LACTATE BLOOD ARTERIAL (2) (BEAKER) (test code = 2874) 0.6 mmol/L 0.5-2.2 [id number] 03:42:00* Test Item Value Reference Range Interpretation Comments MAGNESIUM (BEAKER) (test code = 627) 2.1 mg/dL 1.6-2.6 BASIC METABOLIC [id number] 03:42:00* Test Item Value Reference Range Interpretation Comments SODIUM (BEAKER) (test code = 381) 140 meq/L 136-145 POTASSIUM (BEAKER) (test code = 379) 4.7 meq/L 3.5-5.1 CHLORIDE (BEAKER) (test code = 382) 105 meq/L 98-107 CO2 (BEAKER) (test code = 355) 27 meq/L 22-29 BLOOD UREA NITROGEN (BEAKER) (test code = 354) 26 mg/dL 7-21 H CREATININE (BEAKER) (test code = 358) 1.37 mg/dL 0.57-1.25 H GLUCOSE RANDOM (BEAKER) (test code = 652) 117 mg/dL 70-105 H CALCIUM (BEAKER) (test code = 697) 8.1 mg/dL 8.4-10.2 L EGFR (BEAKER) (test code = 1092) 37 mL/min/1.73 sq m ESTIMATED GFR IS NOT ACCURATE CREATININE CLEARANCE IN PREDICTING GLOMERULAR FILTRATION RATE. ESTIMATED GFR IS NOT APPLICABLE FOR DIALYSIS PATIENTS. CBC W/PLT COUNT & AUTO [id number] 03:36:00* Test Item Value Reference Range Interpretation Comments WHITE BLOOD CELL COUNT (BEAKER) (test code = 775) 14.3 K/ L 3.5- 10.5 H RED BLOOD CELL COUNT (BEAKER) (test code = 761) 3.62 M/ L 3.93-5 .22 L HEMOGLOBIN (BEAKER) (test code = 410) 9.5 GM/DL 11.2-15.7 L HEMATOCRIT (BEAKER) (test code = 411) 32.8 % 34.1-44.9 L MEAN CORPUSCULAR VOLUME (BEAKER) (test code = 753) 90.6 fL 79. 4-94.8 MEAN CORPUSCULAR HEMOGLOBIN (BEAKER) (test code = 751) 26.2 pg 25.6-32.2 MEAN CORPUSCULAR HEMOGLOBIN CONC (BEAKER) (test code = 752) 29.0 GM/DL 32.2-35.5 L RED CELL DISTRIBUTION WIDTH (BEAKER) (test code = 412) 16.8 % 11.7-14.4 H PLATELET COUNT (BEAKER) (test code = 756) 151 K/CU MM 150-450 MEAN PLATELET VOLUME (BEAKER) (test code = 754) 11.8 fL 9.4-12 .3 NUCLEATED RED BLOOD CELLS (BEAKER) (test code = 413) 0 /100 WBC 0 -0 NEUTROPHILS RELATIVE PERCENT (BEAKER) (test code = 429) 84 % LYMPHOCYTES RELATIVE PERCENT (BEAKER) (test code = 430) 6 % MONOCYTES RELATIVE PERCENT (BEAKER) (test code = 431) 8 % EOSINOPHILS RELATIVE PERCENT (BEAKER) (test code = 432) 1 % BASOPHILS RELATIVE PERCENT (BEAKER) (test code = 437) 0 % NEUTROPHILS ABSOLUTE COUNT (BEAKER) (test code = 670) 11.99 K/ L 1.56-6.13 H LYMPHOCYTES ABSOLUTE COUNT (BEAKER) (test code = 414) 0.92 K/ L 1.18-3.74 L MONOCYTES ABSOLUTE COUNT (BEAKER) (test code = 415) 1.11 K/ L 0. 24-0.36 H EOSINOPHILS ABSOLUTE COUNT (BEAKER) (test code = 416) 0.11 K/ L 0.04-0.36 BASOPHILS ABSOLUTE COUNT (BEAKER) (test code = 417) 0.03 K/ L 0. 01-0.08 IMMATURE GRANULOCYTES-RELATIVE PERCENT (BEAKER) (test code = 2801) 1 % 0-1 BLOOD GAS, [id number] 03:30:00* Test Item Value Reference Range Interpretation Comments PH ARTERIAL (BEAKER) (test code = 383) 7.36 7.35-7.45 PCO2 ARTERIAL (BEAKER) (test code = 384) 31 mmHg 35-45 L PO2 ARTERIAL (BEAKER) (test code = 385) 81 mmHg 80-90 O2 SATURATION ARTERIAL (BEAKER) (test code = 386) 96.1 % 96.0 -97.0 HCO3 ARTERIAL (BEAKER) (test code = 388) 17 mmol/L 21-29 L BASE EXCESS ARTERIAL (BEAKER) (test code = 387) -7.9 mmol/L -2.0-3 .0 L PATIENT TEMPERATURE (BEAKER) (test code = 1818) 36.2 C FIO2 (BEAKER) (test code = 1819) 30.0 % POCT-GLUCOSE [id number] 01:56:00* Test Item Value Reference Range Interpretation Comments POC-GLUCOSE METER (BEAKER) (test code = 1538) 115 mg/dL 70-110 H TESTED AT [facility] [address] [facility] [address] BLOOD GAS, [id number] 20:45:00* Test Item Value Reference Range Interpretation Comments PH ARTERIAL (BEAKER) (test code = 383) 7.34 7.35-7.45 L PCO2 ARTERIAL (BEAKER) (test code = 384) 59 mmHg 35-45 H PO2 ARTERIAL (BEAKER) (test code = 385) 171 mmHg 80-90 H O2 SATURATION ARTERIAL (BEAKER) (test code = 386) 99.0 % 96.0 -97.0 H HCO3 ARTERIAL (BEAKER) (test code = 388) 31 mmol/L 21-29 H BASE EXCESS ARTERIAL (BEAKER) (test code = 387) 4.0 mmol/L -2.0-3 .0 H PATIENT TEMPERATURE (BEAKER) (test code = 1818) 36.2 C FIO2 (BEAKER) (test code = 1819) 45.0 % POCT-GLUCOSE [id number] 16:23:00* Test Item Value Reference Range Interpretation Comments POC-GLUCOSE METER (BEAKER) (test code = 1538) 153 mg/dL 70-110 H TESTED AT [address] [address] BLOOD GAS, [id number] 16:21:00* Test Item Value Reference Range Interpretation Comments PH ARTERIAL (BEAKER) (test code = 383) 7.28 7.35-7.45 L PCO2 ARTERIAL (BEAKER) (test code = 384) 69 mmHg 35-45 H PO2 ARTERIAL (BEAKER) (test code = 385) 141 mmHg 80-90 H O2 SATURATION ARTERIAL (BEAKER) (test code = 386) 98.4 % 96.0 -97.0 H HCO3 ARTERIAL (BEAKER) (test code = 388) 32 mmol/L 21-29 H BASE EXCESS ARTERIAL (BEAKER) (test code = 387) 3.0 mmol/L -2.0-3 .0 PATIENT TEMPERATURE (BEAKER) (test code = 1818) 36.7 C FIO2 (BEAKER) (test code = 1819) 36.0 % GRAM [id number] 10:01:00* Test Item Value Reference Range Interpretation Comments GRAM STAIN RESULT (BEAKER) (test code = 1123) No WBCs GRAM STAIN RESULT (BEAKER) (test code = 18326) No organisms seen [id number] 09:53:00* Test Item Value Reference Range Interpretation Comments FIBRINOGEN LEVEL (BEAKER) (test code = 658) 330 mg/dl 225-434 [id number] 09:53:00* Test Item Value Reference Range Interpretation Comments PARTIAL THROMBOPLASTIN TIME (BEAKER) (test code = 760) 29.6 seconds 22.5-36.0 PROTHROMBIN [id number] 09:52:00* Test Item Value Reference Range Interpretation Comments PROTIME (BEAKER) (test code = 759) 14.8 seconds 11.9-14.2 H INR (BEAKER) (test code = 370) 1.2 <=5.9 Effective 07/17/2018: PT Reference Range ChangeNew: 11.9-14.2 Previous: 11.7-14. 7RECOMMENDED COUMADIN/WARFARIN INR THERAPY RANGESSTANDARD DOSE: 2.0-3.0 Include s: PROPHYLAXIS for venous thrombosis, systemic embolization; TREATMENT for venou s thrombosis and/or pulmonary embolus.HIGH RISK: Target INR is 2.5-3.5 for patie nts wiht mechanical heart valves.[id number] 09:49:00* Test Item Value Reference Range Interpretation Comments PHOSPHORUS (BEAKER) (test code = 604) 3.6 mg/dL 2.3-4.7 [id number] 09:49:00* Test Item Value Reference Range Interpretation Comments MAGNESIUM (BEAKER) (test code = 627) 1.9 mg/dL 1.6-2.6 BASIC METABOLIC [id number] 09:49:00* Test Item Value Reference Range Interpretation Comments SODIUM (BEAKER) (test code = 381) 144 meq/L 136-145 POTASSIUM (BEAKER) (test code = 379) 3.7 meq/L 3.5-5.1 CHLORIDE (BEAKER) (test code = 382) 105 meq/L 98-107 CO2 (BEAKER) (test code = 355) 35 meq/L 22-29 H BLOOD UREA NITROGEN (BEAKER) (test code = 354) 22 mg/dL 7-21 H CREATININE (BEAKER) (test code = 358) 1.09 mg/dL 0.57-1.25 GLUCOSE RANDOM (BEAKER) (test code = 652) 135 mg/dL 70-105 H CALCIUM (BEAKER) (test code = 697) 8.4 mg/dL 8.4-10.2 EGFR (BEAKER) (test code = 1092) 48 mL/min/1.73 sq m ESTIMATED GFR IS NOT ACCURATE CREATININE CLEARANCE IN PREDICTING GLOMERULAR FILTRATION RATE. ESTIMATED GFR IS NOT APPLICABLE FOR DIALYSIS PATIENTS. LACTIC ACID, [id number] 09:46:00* Test Item Value Reference Range Interpretation Comments LACTATE BLOOD ARTERIAL (2) (BEAKER) (test code = 2874) 0.6 mmol/L 0.5-2.2 RAD, CHEST, 1 VIEW, NON [id number] 09:38:00Reason for exam:->s/p pericardial windowShould this be performed at the bedside?->YesFINAL REPORT RAD, CHEST, 1 VIEW, NON DEPT INDICATION: s/p pericardial window COMPARISON: July 18, 2018 FINDINGS: Portable frontal view of the chest. IMPRESSION: Support Lines: None. Lungs and pleura: Central congestive changes increased since the prior examination. No lobar consolidation. No significant effusion. No pneumothorax.Heart and mediastinum: Stable contours. Additional findings: None. Signed: JR Hurley Robert MDReport Verified Date/Time: 07/20/2018 09:38:42 Reading Location: [facility] C0[facility] Neuro Reading Room E lectronically signed by: SHERIE HURLEY on 07/20/2018 09:38 AM CBC W/PLT COUNT & AUTO [id number] 09:25:00* Test Item Value Reference Range Interpretation Comments WHITE BLOOD CELL COUNT (BEAKER) (test code = 775) 9.0 K/ L 3.5- 10.5 RED BLOOD CELL COUNT (BEAKER) (test code = 761) 4.08 M/ L 3.93-5 .22 HEMOGLOBIN (BEAKER) (test code = 410) 10.8 GM/DL 11.2-15.7 L HEMATOCRIT (BEAKER) (test code = 411) 35.4 % 34.1-44.9 MEAN CORPUSCULAR VOLUME (BEAKER) (test code = 753) 86.8 fL 79. 4-94.8 MEAN CORPUSCULAR HEMOGLOBIN (BEAKER) (test code = 751) 26.5 pg 25.6-32.2 MEAN CORPUSCULAR HEMOGLOBIN CONC (BEAKER) (test code = 752) 30.5 GM/DL 32.2-35.5 L RED CELL DISTRIBUTION WIDTH (BEAKER) (test code = 412) 17.3 % 11.7-14.4 H PLATELET COUNT (BEAKER) (test code = 756) 155 K/CU MM 150-450 MEAN PLATELET VOLUME (BEAKER) (test code = 754) 10.8 fL 9.4-12 .3 NUCLEATED RED BLOOD CELLS (BEAKER) (test code = 413) 0 /100 WBC 0 -0 NEUTROPHILS RELATIVE PERCENT (BEAKER) (test code = 429) 77 % LYMPHOCYTES RELATIVE PERCENT (BEAKER) (test code = 430) 10 % MONOCYTES RELATIVE PERCENT (BEAKER) (test code = 431) 9 % EOSINOPHILS RELATIVE PERCENT (BEAKER) (test code = 432) 2 % BASOPHILS RELATIVE PERCENT (BEAKER) (test code = 437) 0 % NEUTROPHILS ABSOLUTE COUNT (BEAKER) (test code = 670) 6.95 K/ L 1.56-6.13 H LYMPHOCYTES ABSOLUTE COUNT (BEAKER) (test code = 414) 0.92 K/ L 1.18-3.74 L MONOCYTES ABSOLUTE COUNT (BEAKER) (test code = 415) 0.77 K/ L 0. 24-0.36 H EOSINOPHILS ABSOLUTE COUNT (BEAKER) (test code = 416) 0.21 K/ L 0.04-0.36 BASOPHILS ABSOLUTE COUNT (BEAKER) (test code = 417) 0.02 K/ L 0. 01-0.08 IMMATURE GRANULOCYTES-RELATIVE PERCENT (BEAKER) (test code = 2801) 1 % 0-1 SODIUM NA-STAT [id number] 09:21:00* Test Item Value Reference Range Interpretation Comments SODIUM (BEAKER) (test code = 381) 142 meq/L 135-148 POTASSIUM-STAT [id number] 09:21:00* Test Item Value Reference Range Interpretation Comments POTASSIUM (BEAKER) (test code = 379) 3.5 meq/L 3.6-5.5 L BLOOD GAS, [id number] 09:21:00* Test Item Value Reference Range Interpretation Comments PH ARTERIAL (BEAKER) (test code = 383) 7.33 7.35-7.45 L PCO2 ARTERIAL (BEAKER) (test code = 384) 58 mmHg 35-45 H PO2 ARTERIAL (BEAKER) (test code = 385) 70 mmHg 80-90 L O2 SATURATION ARTERIAL (BEAKER) (test code = 386) 92.6 % 96.0 -97.0 L HCO3 ARTERIAL (BEAKER) (test code = 388) 30 mmol/L 21-29 H BASE EXCESS ARTERIAL (BEAKER) (test code = 387) 3.2 mmol/L -2.0-3 .0 H PATIENT TEMPERATURE (BEAKER) (test code = 1818) 37.0 C FIO2 (BEAKER) (test code = 1819) 36.0 % GLUCOSE-STAT [id number] 09:21:00* Test Item Value Reference Range Interpretation Comments GLUCOSE RANDOM (BEAKER) (test code = 652) 125 mg/dL 70-110 H COMPLEMENT COMPONENT [id number] 07:00:00* Test Item Value Reference Range Interpretation Comments C4 COMPLEMENT (BEAKER) (test code = 394) 31 mg/dL 15-57 COMPLEMENT COMPONENT [id number] 07:00:00* Test Item Value Reference Range Interpretation Comments C3 COMPLEMENT (BEAKER) (test code = 393) 109 mg/dL 82-193 CREATININE, RANDOM [id number] 06:30:00* Test Item Value Reference Range Interpretation Comments CREATININE URINE (BEAKER) (test code = 375) 80.6 mg/dL Reference Range: No NormalsPROTEIN, RANDOM [id number] 06:30:00* Test Item Value Reference Range Interpretation Comments PROTEIN, URINE (BEAKER) (test code = 1569) 57 mg/dL 0-14 H PROTHROMBIN [id number] 03:07:00* Test Item Value Reference Range Interpretation Comments PROTIME (BEAKER) (test code = 759) 14.7 seconds 11.9-14.2 H INR (BEAKER) (test code = 370) 1.2 <=5.9 Effective 07/17/2018: PT Reference Range ChangeNew: 11.9-14.2 Previous: 11.7-14. 7RECOMMENDED COUMADIN/WARFARIN INR THERAPY RANGESSTANDARD DOSE: 2.0-3.0 Include s: PROPHYLAXIS for venous thrombosis, systemic embolization; TREATMENT for venou s thrombosis and/or pulmonary embolus.HIGH RISK: Target INR is 2.5-3.5 for patie nts wiht mechanical heart valves.[id number] 03:07:00* Test Item Value Reference Range Interpretation Comments PARTIAL THROMBOPLASTIN TIME (BEAKER) (test code = 760) 31.1 seconds 22.5-36.0 [id number] 02:43:00* Test Item Value Reference Range Interpretation Comments MAGNESIUM (BEAKER) (test code = 627) 2.0 mg/dL 1.6-2.6 BASIC METABOLIC [id number] 02:43:00* Test Item Value Reference Range Interpretation Comments SODIUM (BEAKER) (test code = 381) 142 meq/L 136-145 POTASSIUM (BEAKER) (test code = 379) 3.8 meq/L 3.5-5.1 CHLORIDE (BEAKER) (test code = 382) 103 meq/L 98-107 CO2 (BEAKER) (test code = 355) 31 meq/L 22-29 H BLOOD UREA NITROGEN (BEAKER) (test code = 354) 24 mg/dL 7-21 H CREATININE (BEAKER) (test code = 358) 1.16 mg/dL 0.57-1.25 GLUCOSE RANDOM (BEAKER) (test code = 652) 93 mg/dL 70-105 CALCIUM (BEAKER) (test code = 697) 8.6 mg/dL 8.4-10.2 EGFR (BEAKER) (test code = 1092) 45 mL/min/1.73 sq m ESTIMATED GFR IS NOT ACCURATE CREATININE CLEARANCE IN PREDICTING GLOMERULAR FILTRATION RATE. ESTIMATED GFR IS NOT APPLICABLE FOR DIALYSIS PATIENTS. C-REACTIVE [id number] 02:43:00* Test Item Value Reference Range Interpretation Comments C-REACTIVE PROTEIN (BEAKER) (test code = 676) 2.54 mg/dL 0.00-0.5 0 H CBC W/PLT COUNT & AUTO [id number] 02:20:00* Test Item Value Reference Range Interpretation Comments WHITE BLOOD CELL COUNT (BEAKER) (test code = 775) 7.3 K/ L 3.5- 10.5 RED BLOOD CELL COUNT (BEAKER) (test code = 761) 3.93 M/ L 3.93-5 .22 HEMOGLOBIN (BEAKER) (test code = 410) 10.5 GM/DL 11.2-15.7 L HEMATOCRIT (BEAKER) (test code = 411) 34.2 % 34.1-44.9 MEAN CORPUSCULAR VOLUME (BEAKER) (test code = 753) 87.0 fL 79. 4-94.8 MEAN CORPUSCULAR HEMOGLOBIN (BEAKER) (test code = 751) 26.7 pg 25.6-32.2 MEAN CORPUSCULAR HEMOGLOBIN CONC (BEAKER) (test code = 752) 30.7 GM/DL 32.2-35.5 L RED CELL DISTRIBUTION WIDTH (BEAKER) (test code = 412) 17.2 % 11.7-14.4 H PLATELET COUNT (BEAKER) (test code = 756) 151 K/CU MM 150-450 MEAN PLATELET VOLUME (BEAKER) (test code = 754) 10.0 fL 9.4-12 .3 NUCLEATED RED BLOOD CELLS (BEAKER) (test code = 413) 0 /100 WBC 0 -0 NEUTROPHILS RELATIVE PERCENT (BEAKER) (test code = 429) 70 % LYMPHOCYTES RELATIVE PERCENT (BEAKER) (test code = 430) 17 % MONOCYTES RELATIVE PERCENT (BEAKER) (test code = 431) 10 % EOSINOPHILS RELATIVE PERCENT (BEAKER) (test code = 432) 3 % BASOPHILS RELATIVE PERCENT (BEAKER) (test code = 437) 0 % NEUTROPHILS ABSOLUTE COUNT (BEAKER) (test code = 670) 5.10 K/ L 1.56-6.13 LYMPHOCYTES ABSOLUTE COUNT (BEAKER) (test code = 414) 1.24 K/ L 1.18-3.74 MONOCYTES ABSOLUTE COUNT (BEAKER) (test code = 415) 0.70 K/ L 0. 24-0.36 H EOSINOPHILS ABSOLUTE COUNT (BEAKER) (test code = 416) 0.19 K/ L 0.04-0.36 BASOPHILS ABSOLUTE COUNT (BEAKER) (test code = 417) 0.03 K/ L 0. 01-0.08 IMMATURE GRANULOCYTES-RELATIVE PERCENT (BEAKER) (test code = 2801) 1 % 0-1 POCT-GLUCOSE [id number] 00:57:00* Test Item Value Reference Range Interpretation Comments POC-GLUCOSE METER (BEAKER) (test code = 1538) 103 mg/dL 70-110 TESTED AT [facility] [address] [facility] [address] POCT-GLUCOSE [id number] 18:20:00* Test Item Value Reference Range Interpretation Comments POC-GLUCOSE METER (BEAKER) (test code = 1538) 134 mg/dL 70-110 H TESTED AT [place] [id number] [facility] [address] CREATININE, RANDOM [id number] 15:20:00* Test Item Value Reference Range Interpretation Comments CREATININE URINE (BEAKER) (test code = 375) 34.0 mg/dL Reference Range: No NormalsPROTEIN, RANDOM [id number] 15:20:00* Test Item Value Reference Range Interpretation Comments PROTEIN, URINE (BEAKER) (test code = 1569) 32 mg/dL 0-14 H PT/[id number] 15:13:00* Test Item Value Reference Range Interpretation Comments PROTIME (BEAKER) (test code = 759) 14.1 seconds 11.9-14.2 INR (BEAKER) (test code = 370) 1.2 <=5.9 PARTIAL THROMBOPLASTIN TIME (BEAKER) (test code = 760) 35.1 seconds 22.5-36.0 Effective 07/17/2018: PT Reference Range ChangeNew: 11.9-14.2 Previous: 11.7-14. 7RECOMMENDED COUMADIN/WARFARIN INR THERAPY RANGESSTANDARD DOSE: 2.0-3.0 Include s: PROPHYLAXIS for venous thrombosis, systemic embolization; TREATMENT for venou s thrombosis and/or pulmonary embolus.HIGH RISK: Target INR is 2.5-3.5 for patie nts wiht mechanical heart valves.POCT-GLUCOSE [id number] 13:05:00* Test Item Value Reference Range Interpretation Comments POC-GLUCOSE METER (BEAKER) (test code = 1538) 117 mg/dL 70-110 H TESTED AT [facility] [address] [facility] [address] HEMOGLOBIN [id number] 10:17:00* Test Item Value Reference Range Interpretation Comments HEMOGLOBIN A1C (BEAKER) (test code = 368) 5.4 % 4.3-6.1 POCT-GLUCOSE [id number] 08:15:00* Test Item Value Reference Range Interpretation Comments POC-GLUCOSE METER (BEAKER) (test code = 1538) 104 mg/dL 70-110 TESTED AT [facility] [address] [facility] [address] [id number] 04:11:00* Test Item Value Reference Range Interpretation Comments FERRITIN (BEAKER) (test code = 361) 72 ng/mL 5-275 TSH/FREE T4 IF [id number] 04:11:00* Test Item Value Reference Range Interpretation Comments THYROID STIMULATING HORMONE (BEAKER) (test code = 772) 1.14 uIU/mL 0.35-4.94 VITAMIN B12 AND [id number] 04:11:00* Test Item Value Reference Range Interpretation Comments VITAMIN B12 (BEAKER) (test code = 774) 212 pg/mL 213-816 L FOLATE (BEAKER) (test code = 362) 14.3 ng/mL >=7.0 IRON, TIBC, % SAT. (WITHOUT FERRITIN)2018-07-19 03:37:00* Test Item Value Reference Range Interpretation Comments IRON (BEAKER) (test code = 547) 24.0 ug/dL 40.0-160.0 L TOTAL IRON BINDING CAPACITY (BEAKER) (test code = 769) 269 ug/dL 250-450 IRON % SATURATION (2) (BEAKER) (test code = 2590) 9 % 20-5 5 L [id number] 03:20:00* Test Item Value Reference Range Interpretation Comments PHOSPHORUS (BEAKER) (test code = 604) 3.4 mg/dL 2.3-4.7 [id number] 03:20:00* Test Item Value Reference Range Interpretation Comments MAGNESIUM (BEAKER) (test code = 627) 2.2 mg/dL 1.6-2.6 BASIC METABOLIC [id number] 03:20:00* Test Item Value Reference Range Interpretation Comments SODIUM (BEAKER) (test code = 381) 143 meq/L 136-145 POTASSIUM (BEAKER) (test code = 379) 4.0 meq/L 3.5-5.1 CHLORIDE (BEAKER) (test code = 382) 102 meq/L 98-107 CO2 (BEAKER) (test code = 355) 33 meq/L 22-29 H BLOOD UREA NITROGEN (BEAKER) (test code = 354) 18 mg/dL 7-21 CREATININE (BEAKER) (test code = 358) 0.95 mg/dL 0.57-1.25 GLUCOSE RANDOM (BEAKER) (test code = 652) 102 mg/dL 70-105 CALCIUM (BEAKER) (test code = 697) 9.0 mg/dL 8.4-10.2 EGFR (BEAKER) (test code = 1092) 56 mL/min/1.73 sq m ESTIMATED GFR IS NOT ACCURATE CREATININE CLEARANCE IN PREDICTING GLOMERULAR FILTRATION RATE. ESTIMATED GFR IS NOT APPLICABLE FOR DIALYSIS PATIENTS. LIPID [id number] 03:20:00* Test Item Value Reference Range Interpretation Comments TRIGLYCERIDES (BEAKER) (test code = 540) 106 mg/dL CHOLESTEROL (BEAKER) (test code = 631) 104 mg/dL HDL CHOLESTEROL (BEAKER) (test code = 976) 36 mg/dL LDL CHOLESTEROL CALCULATED (BEAKER) (test code = 633) 47 mg/dL Triglyceride Reference Range: Low Risk <150 Borderline 150-199 High Risk 200-499 Very High Risk >=500Cholesterol Reference Range: Low Risk <200 Borderline 200-239 High Risk >240HDL Cholesterol Reference Range: Low Risk >=60 High Risk <40LDL Cholesterol Reference Range: Optimal <100 Near Optimal 100-129 Borderline 130-159 High 160-189 Very High >=190 HEPATIC FUNCTION [id number] 03:20:00* Test Item Value Reference Range Interpretation Comments TOTAL PROTEIN (BEAKER) (test code = 770) 5.8 gm/dL 6.0-8.3 L ALBUMIN (BEAKER) (test code = 1145) 3.5 g/dL 3.5-5.0 BILIRUBIN TOTAL (BEAKER) (test code = 377) 1.1 mg/dL 0.2-1.2 BILIRUBIN DIRECT (BEAKER) (test code = 706) 0.5 mg/dL 0.1-0.5 ALKALINE PHOSPHATASE (BEAKER) (test code = 346) 65 U/L 40-150 AST (SGOT) (BEAKER) (test code = 353) 11 U/L 5-34 ALT (SGPT) (BEAKER) (test code = 347) 9 U/L 6-55 CBC W/PLT COUNT & AUTO [id number] 02:57:00* Test Item Value Reference Range Interpretation Comments WHITE BLOOD CELL COUNT (BEAKER) (test code = 775) 8.3 K/ L 3.5- 10.5 RED BLOOD CELL COUNT (BEAKER) (test code = 761) 4.10 M/ L 3.93-5 .22 HEMOGLOBIN (BEAKER) (test code = 410) 10.9 GM/DL 11.2-15.7 L HEMATOCRIT (BEAKER) (test code = 411) 35.6 % 34.1-44.9 MEAN CORPUSCULAR VOLUME (BEAKER) (test code = 753) 86.8 fL 79. 4-94.8 MEAN CORPUSCULAR HEMOGLOBIN (BEAKER) (test code = 751) 26.6 pg 25.6-32.2 MEAN CORPUSCULAR HEMOGLOBIN CONC (BEAKER) (test code = 752) 30.6 GM/DL 32.2-35.5 L RED CELL DISTRIBUTION WIDTH (BEAKER) (test code = 412) 17.2 % 11.7-14.4 H PLATELET COUNT (BEAKER) (test code = 756) 154 K/CU MM 150-450 MEAN PLATELET VOLUME (BEAKER) (test code = 754) 10.8 fL 9.4-12 .3 NUCLEATED RED BLOOD CELLS (BEAKER) (test code = 413) 0 /100 WBC 0 -0 NEUTROPHILS RELATIVE PERCENT (BEAKER) (test code = 429) 76 % LYMPHOCYTES RELATIVE PERCENT (BEAKER) (test code = 430) 13 % MONOCYTES RELATIVE PERCENT (BEAKER) (test code = 431) 9 % EOSINOPHILS RELATIVE PERCENT (BEAKER) (test code = 432) 2 % BASOPHILS RELATIVE PERCENT (BEAKER) (test code = 437) 0 % NEUTROPHILS ABSOLUTE COUNT (BEAKER) (test code = 670) 6.28 K/ L 1.56-6.13 H LYMPHOCYTES ABSOLUTE COUNT (BEAKER) (test code = 414) 1.06 K/ L 1.18-3.74 L MONOCYTES ABSOLUTE COUNT (BEAKER) (test code = 415) 0.72 K/ L 0. 24-0.36 H EOSINOPHILS ABSOLUTE COUNT (BEAKER) (test code = 416) 0.16 K/ L 0.04-0.36 BASOPHILS ABSOLUTE COUNT (BEAKER) (test code = 417) 0.03 K/ L 0. 01-0.08 IMMATURE GRANULOCYTES-RELATIVE PERCENT (BEAKER) (test code = 2801) 1 % 0-1 POCT-GLUCOSE [id number] 22:36:00* Test Item Value Reference Range Interpretation Comments POC-GLUCOSE METER (BEAKER) (test code = 1538) 137 mg/dL 70-110 H TESTED AT [address] [address] CREATININE, RANDOM [id number] 19:27:00* Test Item Value Reference Range Interpretation Comments CREATININE URINE (BEAKER) (test code = 375) 7.4 mg/dL Reference Range: No NormalsPROTEIN, RANDOM [id number] 19:27:00* Test Item Value Reference Range Interpretation Comments PROTEIN, URINE (BEAKER) (test code = 1569) 43 mg/dL 0-14 H POCT-GLUCOSE [id number] 16:50:00* Test Item Value Reference Range Interpretation Comments POC-GLUCOSE METER (BEAKER) (test code = 1538) 124 mg/dL 70-110 H TESTED AT [address] [address] B-TYPE NATRIURETIC FACTOR (BNP)2018-07-18 14:00:00* Test Item Value Reference Range Interpretation Comments B-TYPE NATRIURETIC PEPTIDE (BEAKER) (test code = 700) 291 pg/mL 0-100 H BASIC METABOLIC [id number] 13:57:00* Test Item Value Reference Range Interpretation Comments SODIUM (BEAKER) (test code = 381) 142 meq/L 136-145 POTASSIUM (BEAKER) (test code = 379) 3.7 meq/L 3.5-5.1 CHLORIDE (BEAKER) (test code = 382) 103 meq/L 98-107 CO2 (BEAKER) (test code = 355) 29 meq/L 22-29 BLOOD UREA NITROGEN (BEAKER) (test code = 354) 20 mg/dL 7-21 CREATININE (BEAKER) (test code = 358) 1.09 mg/dL 0.57-1.25 GLUCOSE RANDOM (BEAKER) (test code = 652) 139 mg/dL 70-105 H CALCIUM (BEAKER) (test code = 697) 9.2 mg/dL 8.4-10.2 EGFR (BEAKER) (test code = 1092) mL/min/1.73 sq m INSUFFICIENT CLINICAL DATA TO CALCULATE ESTIMATED GFR. CREATINE KINASE (CK)2018-07-18 13:57:00* Test Item Value Reference Range Interpretation Comments CREATINE KINASE TOTAL (BEAKER) (test code = 380) 14 U/L 29-20 0 L TROPONIN [id number] 13:56:00* Test Item Value Reference Range Interpretation Comments TROPONIN I (BEAKER) (test code = 397) 0.01 ng/mL 0.00-0.03 Troponin I (TnI) levels must be interpreted in the context of the presenting sym ptoms and the clinical findings. Elevated TnI levels indicate myocardial damage, but are not specific for ischemic heart disease. Elevated TnI levels are seen i n patients with other cardiac conditions (including myocarditis and congestive h eart failure), and slight TnI elevations occur in patients with other conditions , including sepsis, renal failure, acidosis, acute neurological disease, and per sistent tachyarrhythmia.URINALYSIS W/ REFLEX URINE [id number] 13:51:00* Test Item Value Reference Range Interpretation Comments COLOR (BEAKER) (test code = 470) Yellow CLARITY (BEAKER) (test code = 469) Hazy SPECIFIC GRAVITY UA (BEAKER) (test code = 468) 1.013 1.001-1 .035 PH UA (BEAKER) (test code = 467) 6.5 5.0-8.0 PROTEIN UA (BEAKER) (test code = 464) 600 mg/dL Negative A GLUCOSE UA (BEAKER) (test code = 365) Negative Negative KETONES UA (BEAKER) (test code = 371) Negative Negative BILIRUBIN UA (BEAKER) (test code = 462) Negative Negative BLOOD UA (BEAKER) (test code = 461) Trace Negative A NITRITE UA (BEAKER) (test code = 465) Negative Negative LEUKOCYTE ESTERASE UA (BEAKER) (test code = 466) Negative Negat andrade UROBILINOGEN UA (BEAKER) (test code = 463) 0.2 mg/dL 0.2-1.0 RBC UA (BEAKER) (test code = 519) 1 /HPF WBC UA (BEAKER) (test code = 520) 4 /HPF BACTERIA (BEAKER) (test code = 517) Many SQUAMOUS EPITHELIAL (BEAKER) (test code = 516) 1 /HPF SOURCE(BEAKER) (test code = 2795) [id number] 13:48:00* Test Item Value Reference Range Interpretation Comments MAGNESIUM (BEAKER) (test code = 627) 1.9 mg/dL 1.6-2.6 CBC W/PLT COUNT & AUTO [id number] 13:32:00* Test Item Value Reference Range Interpretation Comments WHITE BLOOD CELL COUNT (BEAKER) (test code = 775) 12.8 K/ L 3.5- 10.5 H RED BLOOD CELL COUNT (BEAKER) (test code = 761) 4.40 M/ L 3.93-5 .22 HEMOGLOBIN (BEAKER) (test code = 410) 11.6 GM/DL 11.2-15.7 HEMATOCRIT (BEAKER) (test code = 411) 38.9 % 34.1-44.9 MEAN CORPUSCULAR VOLUME (BEAKER) (test code = 753) 88.4 fL 79. 4-94.8 MEAN CORPUSCULAR HEMOGLOBIN (BEAKER) (test code = 751) 26.4 pg 25.6-32.2 MEAN CORPUSCULAR HEMOGLOBIN CONC (BEAKER) (test code = 752) 29.8 GM/DL 32.2-35.5 L RED CELL DISTRIBUTION WIDTH (BEAKER) (test code = 412) 17.5 % 11.7-14.4 H PLATELET COUNT (BEAKER) (test code = 756) 172 K/CU MM 150-450 MEAN PLATELET VOLUME (BEAKER) (test code = 754) 10.9 fL 9.4-12 .3 NUCLEATED RED BLOOD CELLS (BEAKER) (test code = 413) 0 /100 WBC 0 -0 NEUTROPHILS RELATIVE PERCENT (BEAKER) (test code = 429) 85 % LYMPHOCYTES RELATIVE PERCENT (BEAKER) (test code = 430) 8 % MONOCYTES RELATIVE PERCENT (BEAKER) (test code = 431) 5 % EOSINOPHILS RELATIVE PERCENT (BEAKER) (test code = 432) 1 % BASOPHILS RELATIVE PERCENT (BEAKER) (test code = 437) 0 % NEUTROPHILS ABSOLUTE COUNT (BEAKER) (test code = 670) 10.81 K/ L 1.56-6.13 H LYMPHOCYTES ABSOLUTE COUNT (BEAKER) (test code = 414) 1.03 K/ L 1.18-3.74 L MONOCYTES ABSOLUTE COUNT (BEAKER) (test code = 415) 0.69 K/ L 0. 24-0.36 H EOSINOPHILS ABSOLUTE COUNT (BEAKER) (test code = 416) 0.08 K/ L 0.04-0.36 BASOPHILS ABSOLUTE COUNT (BEAKER) (test code = 417) 0.05 K/ L 0. 01-0.08 IMMATURE GRANULOCYTES-RELATIVE PERCENT (BEAKER) (test code = 2801) 1 % 0-1 RAD, CHEST, 1 VIEW, NON [id number] 13:28:00Reason for exam:->SHORTNESS OF BREATHFINAL REPORT INDICATION: SHORTNESS OF BREATH COMPARISON: None TECHNIQUE: Single frontal view of the chest. FINDINGS: Lungs and pleura: Interstitial prominence is present centrally. Questionable small left effusion.Heart and mediastinum: Cardiac size is enlarged. Central venous engorgement noted bilaterally. Normal aortic caliber.Osseous structures: No acute abnormality.Other: None. IMPRESSION: Appearance favors cardiogenic edema. Signed: JR Hurley Robert MDReport Verified Date/Time: 07/18/2018 13:28:20 Reading Location: [address] Consult Reading Room Bedside Glucose 2017-09-28 16:29:00* Test Item Value Reference Range Interpretation Comments Bedside Glucose (test code = 79039-7) 129 70-120 H Meter ID: [id number] [facility]i [facility] Bay AreaCyclic Citrullinated Peptide IgG [id number] 11:27:00* Test Item Value Reference Range Interpretation Comments Cyclic Citrullinated Peptide IgG Ab (test code = 70787-5) 4 Reference Range: 0 - 19 Units Negative <20 Weak positive 20 - 39 Moderate positive 40 - 59 Strong positive >59Testing performed by:[facility] [address] [place] [id number]. Abhi Hernandez [facility] CenterRheumatoid Bidgdb1142-00-43 11:27:00* Test Item Value Reference Range Interpretation Comments Rheumatoid Factor (test code = 07949-2) -10.0 < 14 Testing performed by:[facility]burgEivlnzx[address] [place], [place] [phone] [id number]: Andrez Gallegos [facility] CenterCHEST SINGLE (PORTABLE)2017-09-28 06:43:00 [place] [address] Patient Name: ANGELO BARTON MR #: [id number] : 1935 Age/Sex: 82/F Req #: [id number] Adm Physician: JIMMY MARIANO MD Ordered by: VIVIEN CHINCHILLA MD Report #: [id number] Location: MED/SURG2 Room/Bed: [facility] Procedure: [id number] DX/CHEST SINGLE (PORTABLE) Exam Date: 09/28/17 Exam Time: 0605 REPORT STATUS: Signed EXAM: CHEST SINGLE (PORTABLE), AP 1 vi ew INDICATION: CHF COMPARISON: AP view of the chest September 26, 2017 FIND INGS: LINES/TUBES: None LUNGS: Vascular congestion and edema PLEURA : Indeterminate for effusion on the left HEART AND MEDIASTINUM: Stable card iomegaly BONES AND SOFT TISSUES: No acute findings. IMPRESSION: No interval change. Signed by: Dr. Crystal Randhawa M.D. on 09/28/2017 6:44 AM Dictated By: CRYSTAL RANDHAWA MD Transcribed By: DEXTER on 09/28/17643 COPY T O: VIVIEN CHINCHILLA MD, ABIM Sodium Osmcf6519-39-26 05:41:00* Test Item Value Reference Range Interpretation Comments Sodium Level (test code = 2951-2) 142 136-145 [facility] AreaPotassium Xkefl7245-93-40 05:41:00* Test Item Value Reference Range Interpretation Comments Potassium Level (test code = 2823-3) 3.9 3.5-5.1 [facility] AreaChloride Evser4322-92-50 05:41:00* Test Item Value Reference Range Interpretation Comments Chloride Level (test code = 2075-0) 103 98-107 [facility] AreaCarbon Dioxide Ixnxz4211-48-50 05:41:00* Test Item Value Reference Range Interpretation Comments Carbon Dioxide Level (test code = 2028-9) 28 22-29 [facility] AreaAnion [id number] 05:41:00* Test Item Value Reference Range Interpretation Comments Anion Gap (test code = 69203-1) 14.9 8-16 [facility] AreaBlood Urea Crwxyzgg6668-49-05 05:41:00* Test Item Value Reference Range Interpretation Comments Blood Urea Nitrogen (test code = 3094-0) 36 7-26 H [facility] AreaCreatinine2018-08-10 05:41:00* Test Item Value Reference Range Interpretation Comments Creatinine (test code = 2160-0) 1.15 0.57-1.11 H [facility] AreaBUN/Creatinine Alvas1033-88-15 05:41:00* Test Item Value Reference Range Interpretation Comments BUN/Creatinine Ratio (test code = 3097-3) 31 6-25 H [facility] Bay AreaEstimat Glomerular Filtration Rate 2017-09-28 05:41:00* Test Item Value Reference Range Interpretation Comments Estimat Glomerular Filtration Rate (test code = 66904-7) 45 >60 L Ranges were taken from the National Kidney Disease Education Program and the [facility] Foundation literature.Reference ranges:60 or greater: Dwdjqe26-87 ( for 3 consecutive months): Chronic kidney disease 15 or less: Kidney failureCorpus Christi Medical Center Bay AreaGlucose Tnxvi4898-78-53 05:41:00* Test Item Value Reference Range Interpretation Comments Glucose Level (test code = NNO3309) 50 74-118 LL Results called to CARMINA ORTEGA RN at 0541 on 09/28/17 by Kacy Aguilrea. RB OK.[facility] AreaCalcium Xeqtg5058-23-65 05:41:00* Test Item Value Reference Range Interpretation Comments Calcium Level (test code = 33610-7) 8.6 8.4-10.2 [facility] AreaMagnesium Sacji9938-18-65 05:41:00* Test Item Value Reference Range Interpretation Comments Magnesium Level (test code = 02625-2) 1.8 1.3-2.1 [facility] AreaWhite Blood Bmnfl8014-44-10 05:22:00* Test Item Value Reference Range Interpretation Comments White Blood Count (test code = 6690-2) 10.31 4.8-10.8 [facility] Bay AreaRed Blood Phijz2222-01-94 05:22:00* Test Item Value Reference Range Interpretation Comments Red Blood Count (test code = 789-8) 3.66 3.6-5.1 [facility] AreaHemoglobin2018-08-10 05:22:00* Test Item Value Reference Range Interpretation Comments Hemoglobin (test code = 78328-3) 10.1 12.0-16.0 L [facility] AreaHematocrit2018-08-10 05:22:00* Test Item Value Reference Range Interpretation Comments Hematocrit (test code = 4544-3) 32.6 34.2-44.1 L [facility] Bay AreaMean Corpuscular Mybkeo4939-60-35 05:22:00* Test Item Value Reference Range Interpretation Comments Mean Corpuscular Volume (test code = 787-2) 89.1 81-99 [facility] AreaMean Corpuscular Izbiuegmwe1799-73-21 05:22:00* Test Item Value Reference Range Interpretation Comments Mean Corpuscular Hemoglobin (test code = 785-6) 27.6 28-32 L [facility] Bay AreaMe Corpuscular Hemoglobin Concent 2017-09-28 05:22:00* Test Item Value Reference Range Interpretation Comments Mean Corpuscular Hemoglobin Concent (test code = 786-4) 31.0 31-35 [facility] AreaRed Cell Distribution Tedct0966-09-51 05:22:00* Test Item Value Reference Range Interpretation Comments Red Cell Distribution Width (test code = 34305-9) 15.4 11.7 -14.4 H [facility] Bay AreaPlatelet Bnnur9969-92-63 05:22:00* Test Item Value Reference Range Interpretation Comments Platelet Count (test code = 777-3) 173 140-360 [facility] AreaNeutrophils (%) (Auto)2017-09-28 05:22:00 * Test Item Value Reference Range Interpretation Comments Neutrophils (%) (Auto) (test code = 76087-8) 71.0 38.7-80.0 [facility] AreaLymphocytes (%) (Auto)2017-09-28 05:22:00 * Test Item Value Reference Range Interpretation Comments Lymphocytes (%) (Auto) (test code = 736-9) 15.8 18.0-39.1 L [facility] AreaMonocytes (%) (Auto)2017-09-28 05:22:00* Test Item Value Reference Range Interpretation Comments Monocytes (%) (Auto) (test code = 5905-5) 8.9 4.4-11.3 [facility] AreaEosinophils (%) (Auto)2017-09-28 05:22:00 * Test Item Value Reference Range Interpretation Comments Eosinophils (%) (Auto) (test code = 713-8) 3.2 0.0-6.0 [facility] AreaBasophils (%) (Auto)2017-09-28 05:22:00* Test Item Value Reference Range Interpretation Comments Basophils (%) (Auto) (test code = 706-2) 0.3 0.0-1.0 [facility] Bay AreaIM GRANULOCYTES %2017-09-28 05:22:00* Test Item Value Reference Range Interpretation Comments IM GRANULOCYTES % (test code = IM GRANULOCYTES %) 0.8 0.0- 1.0 [facility] AreaNeutrophils # (Auto)2017-09-28 05:22:00* Test Item Value Reference Range Interpretation Comments Neutrophils # (Auto) (test code = 751-8) 7.3 2.1-6.9 H [facility] AreaLymphocytes # (Auto)2017-09-28 05:22:00* Test Item Value Reference Range Interpretation Comments Lymphocytes # (Auto) (test code = 33689-3) 1.6 1.0-3.2 [facility] AreaMonocytes # (Auto)2017-09-28 05:22:00* Test Item Value Reference Range Interpretation Comments Monocytes # (Auto) (test code = 742-7) 0.9 0.2-0.8 H [facility] AreaEosinophils # (Auto)2017-09-28 05:22:00* Test Item Value Reference Range Interpretation Comments Eosinophils # (Auto) (test code = 711-2) 0.3 0.0-0.4 [facility] AreaBasophils # (Auto)2017-09-28 05:22:00* Test Item Value Reference Range Interpretation Comments Basophils # (Auto) (test code = 704-7) 0.0 0.0-0.1 [facility] Bay AreaAbsolute Immature Granulocyte (auto 2017-09-28 05:22:00* Test Item Value Reference Range Interpretation Comments Absolute Immature Granulocyte (auto (maureen t code = Absolute Immature Granulocyte (auto) 0.08 0-0.1 [facility] Bay AreaCT CHEST [id number] 16:02:00 [facility] [address] [place] [address] Patient Name: ANGELO BARTON MR #: [id number] : 1935 Age/Sex: 82/F Req #: [id number] Adm Physician: JIMMY MARIANO MD Ordered by: VIVIEN CHINCHILLA MD Report #: [id number] Loca tion: MED/SURG2 Room/Bed: [facility] Procedure: [id number] CT/CT CHEST WO Exam Date: 09/26/17 Exam Time: 1515 REPORT STATUS: Signed PROCEDURE: CT CHEST WITHOUT CONTRAST CT scan of the chest WITHOUT intravenous contrast, using standard protocol. TECHNI QUE: The chest was scanned utilizing a multidetector helical scanner from t he apex to the level of the adrenal glands. No IV contrast was administered. Coronal and sagittal multiplanar reformations were obtained. DLP: 570.3 mG y-cm COMPARISON: None. INDICATIONS: CHF FINDINGS: Lung s and Airways: Smooth lobular septal thickening with scattered groundglass op acities likely representing edema. Mild lower lobe and lingular atelectasis. Right upper lobe 0.8 cm nodule versus nodular atelectasis (series 3 image 16) . Pleura: Small pleural effusions, left greater than right. Heart an d mediastinum: Mildly enlarged upper right paratracheal node (series 2 image 18) measuring 1.1 cm. No additional mediastinal, hilar or axillary lymphaden opathy is seen. Cardiomegaly. Hypoattenuation in the blood pool suggestive of anemia. Small pericardial effusion. Coronary artery and aortic calcification s. Soft tissues: Normal. Abdomen: Limited views of the upper abdomen sh ow no abnormality within the visualized liver, spleen, pancreas, or kidneys. Round 1.4 cm calcification in the splenic hilum may represent a calcified spl enic artery aneurysm. The adrenal glands are normal. Bones: Age indeter minate T12 compression deformity with approximately 60% height loss and osseo us retropulsion into the spinal canal. Diffuse osseus demineralization. IMPRESSION: 1. Cardiomegaly with interstitial edema, small pleural effusion s, and small pericardial effusion. 2. Right upper lobe 8 mm nodule versus nodular atelectasis. Recommend follow up chest CT in 3 months. 3. Slightly enlarged 1.1 cm upper right paratracheal node, nonspecific but may be reactiv e. Attention on follow up exam. 4. T12 compression deformity with approximat chaparro 60% height loss and osseous retropulsion into the spinal canal. Dic tated by: Ivan Cervantes M.D. on 09/26/2017 at 16:02 Electronically appro toby by: Ivan Cervantes M.D. on 09/26/2017 at 16:02 Dictated By : IVAN CERVANTES MD 1602 Transcribed By: GABRIELLE on 09/26/17 1602 COPY TO: VIVIEN CHINCHILLA MD, [facility] Anti-Nuclear Antibody Lcucis9451-86-24 13:18:00* Test Item Value Reference Range Interpretation Comments Anti-Nuclear Antibody Screen (test code = 5048-4) Negative . Negative <1:80 Borderline 1:80 Positive > 1:80Performed at: [facility] [id number] 3Lab Director: Andrez Gallegos MD, Phone: [phone] Christi Medical Center Bay AreaD-Dimer Quantitative (PE/DVT)2017-09-26 11:45:00* Test Item Value Reference Range Interpretation Comments D-Dimer Quantitative (PE/DVT) (test code = 75184-0) 359 0- 400 As with all in vitro diagnostic tests, the test results should be interpreted by the physician in conjunction with clinical findings and other test results.Test results are reported in NEW D-dimer units(ug/mLFEU).[facility] CenterCHE[facility]INGLE ([facility])2017-09-26 06:41:00 [place] [address] Patient Name: ANGELO BARTON MR #: [id number] : 1935 Age/Sex: 82/F Req #: [id number] Adm Physician: JIMMY MARIANO MD Ordered by: VIVIEN CHINCHILLA MD Report #: [id number] Location: MED/SURG2 Room/Bed: [facility] Procedure: [id number] DX/CHEST SINGLE (PORTABLE) Exam Date: Exam Time: REPORT STATUS: Signed EXAM: CHEST SINGLE (PORTABLE), AP 1 view INDICAT ION: CHF COMPARISON: AP view of the chest September 25, 2017 FINDINGS: LINE S/TUBES: None LUNGS: Vascular congestion and edema. Bibasilar atelectasis PLEURA: Indeterminate for effusion on the left. HEART AND MEDIASTINUM: Stable cardiomegaly and central vascular congestion BONES AND SOFT TISSUES: No acute findings. IMPRESSION: Stable cardiomegaly and edema. Signed by: Dr. Crystal Randhawa M.D. on 09/26/2017 6:43 AM Dictated By: CRYSTAL RANDHAWA MD 2 Transcribed By: DEXTER on 09/26/17642 COPY TO: VIVIEN CHINCHILLA MD, AB IM Total Kdpiagest8857-91-63 06:18:00* Test Item Value Reference Range Interpretation Comments Total Bilirubin (test code = 1975-2) 0.9 0.2-1.2 [facility] AreaAspartate Amino Transf (AST/SGOT) 2017-09-26 06:18:00* Test Item Value Reference Range Interpretation Comments Aspartate Amino Transf (AST/SGOT) (test code = Aspartate Amino Transf (AST/SGOT)) 9 5-34 [facility] AreaAlanine Aminotransferase (ALT/SGPT) 2017-09-26 06:18:00* Test Item Value Reference Range Interpretation Comments Alanine Aminotransferase (ALT/SGPT) (test code = 1742-6) 7 0-55 [facility] AreaTotal Urkwrun7755-75-84 06:18:00* Test Item Value Reference Range Interpretation Comments Total Protein (test code = 2885-2) 6.3 6.5-8.1 L [facility] AreaAlbumin2018-08-08 06:18:00* Test Item Value Reference Range Interpretation Comments Albumin (test code = 1751-7) 3.7 3.5-5.0 [facility] AreaGlobulin2018-08-08 06:18:00* Test Item Value Reference Range Interpretation Comments Globulin (test code = 83602-2) 2.6 2.3-3.5 [facility] AreaAlbumin/Globulin Opeij7959-75-98 06:18:00 * Test Item Value Reference Range Interpretation Comments Albumin/Globulin Ratio (test code = 1759-0) 1.4 0.8-2.0 [facility] AreaAlkaline Yoysleclqde1492-57-01 06:18:00* Test Item Value Reference Range Interpretation Comments Alkaline Phosphatase (test code = 6768-6) 58 40-150 [facility] AreaErythrocyte Sedimentation Ytyv1085-53-24 12:10:00* Test Item Value Reference Range Interpretation Comments Erythrocyte Sedimentation Rate (test code = 4537-7) 8 0- 20 [facility] AreaCreatine Kinase GB1161-94-56 11:49:00* Test Item Value Reference Range Interpretation Comments Creatine Kinase MB (test code = 24210-0) 0.80 0-5.0 [facility] AreaTroponin F1905-57-74 11:49:00* Test Item Value Reference Range Interpretation Comments Troponin I (test code = CRP8344) 0.006 0-0.300 [facility] AreaCreatine Pzxvgw3989-21-11 11:43:00* Test Item Value Reference Range Interpretation Comments Creatine Kinase (test code = 2157-6) 9 29-168 L [facility] AreaFree Thyroxine Rvrrk0475-22-34 11:40:00* Test Item Value Reference Range Interpretation Comments Free Thyroxine Index (test code = 73937-8) 3.0666 1.4-3.8 [facility] AreaThyroxine (T4)2017-09-25 11:40:00* Test Item Value Reference Range Interpretation Comments Thyroxine (T4) (test code = 3026-2) 10.42 4.5-10.9 Our current method for Total T4 is not recommended for use as the only marker fo r evaluating patients for thyroid disorders.[facility] AreaTriiodothyronine (T3) Pjjrsx0538-83-41 11:40:00* Test Item Value Reference Range Interpretation Comments Triiodothyronine (T3) Uptake (test code = 3050-2) 29.43 22.5 -37.0 [facility] AreaThyroid Stimulating Hormone (TSH) 2017-09-25 11:40:00* Test Item Value Reference Range Interpretation Comments Thyroid Stimulating Hormone (TSH) (test code = 33289-0) 0.661 0.350-4.940 [facility] AreaECHO COMPLETE (ECHOCARDIOGRAM)2017-09-25 10:33:00 [facility] [address] [place] [address] Patient Name : ANGELO BARTON MR #: [id number] : 1935 Age/Sex: 82/F Adm Physician : JIMMY MARIANO MD Admit Date : 09/25/17 Location : MED/SURG2 Room/Bed : [facility] REPORT: Cardiology Repor t DATE OF STUDY: ECHOCARDIOGRAM M-MODE: Dilated left atri um. Left ventricular hypertrophy. Normal contractility. Normal mitral and aortic valves. No pericardial effusion. SECTOR SCAN: Dilated left atrium. Left ventricular hypertrophy. Normal contractility. Ejection fraction is a pproximately 60%. Mitral, aortic and tricuspid valves grossly normal. There is pericardial effusion mostly posterior measuring up to 1.3 cm and less ro n 0.5 cm anteriorly. There is no evidence of cardiac tamponade. There is a large pleural effusion. CARDIAC DOPPLER STUDY WITH COLOR: Trace mitral an d tricuspid regurgitation. Pulmonary artery systolic pressure estimated at 4 1 mmHg. CONCLUSIONS 1. Moderate pericardial effusion mostly posterior me asuring up to 1.3 cm with anterior effusion less than 0.5 cm without any evid ence of cardiac tamponade with probable large pleural effusion. 2. Left ve ntricular hypertrophy with ejection fraction of approximately 60%. 3. Trac e mitral regurgitation with dilated left atrium. 4. Trace tricuspid regurg itation with mild pulmonary hypertension. Pulmonary artery systolic pressure estimated at 41 mmHg. 1 0:48 Job#: [id number] RI cc: JIMMY MARIANO M.D. Signature Date Dictated By: ARUNA MORRELL MD Transcribed By: SMEDS on 09/25/17 < Electronically signed by ARUNA MORRELL MD><<Signature on File>>09/27/17 1104 COPY TO: CHEST SINGLE (PORTABLE)2017-09-25 07:19:00 [place] [address] Patient Name: ANGELO BARTON MR #: [id number] : 1935 Age/Sex: 82/F Req #: [id number] Adm Physician: JIMMY MARIANO MD Ordered by: VIVIEN CHINCHILLA MD Report #: [id number] Location: [facility] Room/Bed: [place] [address] Procedure: [id number] DX/CHEST SINGLE (PORTABLE) Exam Date: 09/25/17 Exam Time: 0655 REPORT STATUS: Signed PROCEDURE: CHEST SINGLE (PORTABLE) COMPARISON: 09/24/2017. INDICATIONS: CHF, SHORTNESS OF BREATH FINDINGS: See conclusion CONCLUSION: Interval improvement in pulm onary edema with reduction in perihilar airspace opacities. Trace left pleura l effusion persists with left lower lobe airspace disease likely passive atel ectasis. No new consolidations. Regional skeletal structures are int act. Dictated by: Dre Alexander M.D. on 09/25/2017 at 7:19 Electroni obey approved by: Dre Alexander M.D. on 09/25/2017 at 7:19 Dictate d By: DRE ALEXANDER MD 0 719 Transcribed By: GABRIELLE on 09/25/17 0719 COPY TO: VIVIEN CHINCHILLA MD, ABIM Urine [id number] 03:10:00* Test Item Value Reference Range Interpretation Comments Urine WBC (test code = 5821-4) 0-5 0-5 [facility] [id number] 03:10:00* Test Item Value Reference Range Interpretation Comments Urine RBC (test code = 38065-4) 0-5 0-5 [facility] [id number] 03:10:00* Test Item Value Reference Range Interpretation Comments Urine Bacteria (test code = 18724-3) RARE NONE [facility] Epithelial [id number] 03:10:00 * Test Item Value Reference Range Interpretation Comments Urine Epithelial Cells (test code = 86942-3) RARE NONE [facility] [id number] 02:58:00* Test Item Value Reference Range Interpretation Comments Urine Color (test code = 5778-6) YELLOW YELLOW [facility] [id number] 02:58:00* Test Item Value Reference Range Interpretation Comments Urine Clarity (test code = 77924-2) CLEAR CLEAR [facility] Specific [id number] 02:58:00 * Test Item Value Reference Range Interpretation Comments Urine Specific [place] (test code = 5811-5) 1.020 1.010-1.02 5 [facility] [id number] 02:58:00* Test Item Value Reference Range Interpretation Comments Urine pH (test code = 34544-0) 6 5-7 [facility] Leukocyte [id number] 02:58:00* Test Item Value Reference Range Interpretation Comments Urine Leukocyte Esterase (test code = 5799-2) NEGATIVE NEGATIVE [facility] [id number] 02:58:00* Test Item Value Reference Range Interpretation Comments Urine Nitrite (test code = 14020-0) NEGATIVE NEGATIVE [facility] [id number] 02:58:00* Test Item Value Reference Range Interpretation Comments Urine Protein (test code = 5804-0) 2+ NEGATIVE H [facility] Glucose (UA)2017-09-25 02:58:00* Test Item Value Reference Range Interpretation Comments Urine Glucose (UA) (test code = 2349-9) NEGATIVE NEGATIVE [facility] [id number] 02:58:00* Test Item Value Reference Range Interpretation Comments Urine Ketones (test code = 26180-6) NEGATIVE NEGATIVE [facility] [id number] 02:58:00* Test Item Value Reference Range Interpretation Comments Urine Urobilinogen (test code = 30321-0) 0.2 0.2-1 [facility] [id number] 02:58:00* Test Item Value Reference Range Interpretation Comments Urine Bilirubin (test code = 1978-6) NEGATIVE NEGATIVE [facility] [id number] 02:58:00* Test Item Value Reference Range Interpretation Comments Urine Blood (test code = 18493-6) TRACE NEGATIVE H [facility]2017-09-24 23:47:00 [facility] [address] [place] [address] Patient Name: ANGELO BARTON MR #: [id number] : 1935 Age/Sex: 82/F Req #: [id number] Adm Physician: Ordered by: BONY MIXON MD Report #: [id number] Location: ER Room/Bed: Procedure: [id number] DX/CHEST SINGLE (PORTAB LE) Exam Date: Exam Time: REPORT STATUS: Sig merritt EXAM: CHEST SINGLE (PORTABLE), AP 1 view INDICATION: Shortness of breat h COMPARISON: None FINDINGS: LINES/TUBES: None LUNGS: Bilateral pe rihilar predominant interstitial and alveolar opacities. PLEURA: Possible small left pleural effusion. HEART AND MEDIASTINUM: The cardiomediastinal s ilhouette is enlarged with central pulmonary vascular congestion. BONES A ND SOFT TISSUES: No acute findings. IMPRESSION: Central pulmonary vascul ar congestion and early edema. Signed by: Dr. Crystal Randhawa M.D. on 09/24/2017 11:48 PM Dictated By: CRYSTAL RANDHAWA MD Electronically Mable d By: CRYSTAL RANDHAWA MD on 09/24/178 Transcribed By: DEXTER on 09/24/17 234 8 COPY TO: BONY MIXON MD B-Type Natriuretic Peptide 2017-09-24 23:31:00* Test Item Value Reference Range Interpretation Comments B-Type Natriuretic Peptide (test code = 80012-5) 149.3 0-100 H [facility] [id number] 22:58:00* Test Item Value Reference Range Interpretation Comments Prothrombin Time (test code = 5902-2) 13.8 11.9-14.5 [facility] International Ratio 2017-09-24 22:58:00* Test Item Value Reference Range Interpretation Comments Prothromb Time International Ratio (test code = 6301-6) 1.15 Oral Anticoagulant Therapy INR Values:1. Low Intensity Therapy 1.5 - 2.02 . Moderate Intensity Therapy 2.0 - 3.03. High Intensity Therapy(1) 2.5 - 3. 54. High Intensity Therapy(2) 3.0 - 4.05. Panic Value INR > 5.0 [facility] Partial Thromboplast Time 2017-09-24 22:58:00* Test Item Value Reference Range Interpretation Comments Activated Partial Thromboplast Time (test code = 42906-6) 27.9 23.8-35.5 [facility]
--- NOTE | 2020-01-01 19:25 | Emergency Department Note ---
History of Present Illnes History of Present Illness Chief Complaint: Respiratory History of Present Illness This is a 84 year old female that was sent here for worsening slurred, slow speech since discharge on the , dizziness described as generalized weakness and vertiginous sensation and blurry vision on the right eye. Patient did lose her left eye vision due to a stroke. Family sent her for the concern of a stroke. Patient states that she still feels short of breath since discharge, was recently discharged due to congestive heart failure below is the discharge diagnoses from her recent admission. FINAL DISCHARGE DIAGNOSES: 1. Dyspnea due to acute diastolic congestive heart failure with exacerbation. 2. Escherichia coli and Pseudomonas aeruginosa urinary tract infection. 3. Acute kidney injury. 4. Hypertension. 5. Hypothyroidism. 6. High cholesterol. 7. History of cerebrovascular accident with right-sided weakness. 8. Chronic anemia. 9. Mild leukocytosis. 10. Debility. 11. Sinus bradycardia with episodes of pauses, status post loop recorder placement. . 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 Arrival Mode: [place] Onset (how long ago): day(s) Location: diffuse Radiation: Reports non-radiation Severity: moderate Onset quality: gradual Duration (how long): day(s) (2) Timing of current episode: constant Progression: worsening Chronicity: recurrent Context: Reports recent illness Relieving factors: none Exacerbating factors: none Associated symptoms: Reports malaise, Reports shortness of breath, Reports weakness; Denies chest pain, Denies fever/chills, Denies loss of appetite, Denies nausea/vomiting, Denies syncope Past Medical/Family History Physician Review I have reviewed the patient's past medical and family history. Any updates have been documented here. Past Medical History Recent Fever: No Clinical Suspicion of Infectio: No New/Unexplained Change in Ment: No Past Medical History: Hypertension, Diabetes, CHF, CVA Other Medical History: NOSE CANCER Past Surgical History: None Other Surgery: HX: CARCINOMA LOOP RECORDER Social History Physically hurt or threatened: No Other Last Tetanus: UTD Review of Systems Review of Systems Constitutional: Reports as per HPI EENTM: Reports no symptoms Cardiovascular: Reports as per HPI Respiratory: Reports as per HPI Genitourinary: Reports no symptoms Musculoskeletal: Reports as per HPI Integumentary: Reports no symptoms Neurological: Reports as per HPI Psychological: Reports no symptoms Endocrine: Reports no symptoms Hematological/Lymphatic: Reports no symptoms Review of other systems: All other systems negative Physical Exam Related Data Allergies: Coded Allergies: codeine (Verified Allergy, Severe, 01/01/20) iodine (Verified Allergy, Severe, 01/01/20) Triage Vital Signs Vital Signs Date Time Temp Pulse Resp B/P (MAP) Pulse Ox O2 Delivery O2 Flow Rate FiO2 01/01/20 18:43 96.5 61 20 172/66 98 Room Air Vital signs reviewed: Yes Physical Exam CONSTITUTIONAL Constitutional: Present well-developed, Present well-nourished, Present morbidly obese, Present other (no toxic ) HENT HENT: Present normocephalic, Present atraumatic, Present oropharynx clear/moist EYES Eyes: Reports PERRL, Reports conjunctivae normal NECK Neck: Present ROM normal, Present supple PULMONARY Pulmonary: Present effort normal, Present other (bibasilar rales ) CARDIOVASCULAR Cardiovascular: Present regular rhythm GASTROINTESTINAL Abdominal: Present soft GENITOURINARY SKIN Skin: Present warm MUSCULOSKELETAL Musculoskeletal: Present edema (2+ to shins bilaterally ) NEUROLOGICAL Neurological: Present alert, Present oriented x 3 PSYCHOLOGICAL Results Laboratory Lab results reviewed: Yes Imaging Imaging results reviewed: Yes Imaging Comments Patient with concern for age indeterminate infarctions and volume overload, we'll admit. Procedures 12 Lead ECG Interpretation ECG Interpretation : ECG: ECG 1 (EKG shows normal sinus rhythm rate of 63, normal intervals, normal axis, poor anterior R-wave progression no acute ST changes. EKG overall nondiagnostic.) Assessment & Plan Medical Decision Making MDM Patient's an 84-year-old with recent discharge from the hospital, she was sent here for strokelike symptoms to include slurred speech, slow speech, generalized weakness and dizziness on top of intermittent right eye blurriness. On exam patient does have slurred speech, no weakness in any other part of her body. No gross changes to the vision of her right eye, normal intraocular pressure. Patient is not a TPA candidate because symptoms have been going on greater than 4-1/2 hours. Patient is currently being treated for urinary tract infection with IV antibiotics. IV site looks clean dry and intact. We will CT her head to rule out stroke, lab work to make sure the infection is improving and not worsening. Patient clinically still overloaded however she is not hypoxic nor with any severe respiratory distress. Reassessment Reassessment Patient has age-indeterminate findings on her CT, given new neurologic findings will need neuro consult and an MRI. Patient also falling overloaded still on her imaging, we'll start Lasix. A shunt was admitted by Dr. MARIANO Assessment & Plan Final Impression: (1) Slurred speech (2) Blurry vision (3) Volume overload (4) Episodic ataxia with slurred speech Depart Disposition: ADMITTED Last Vital Signs Date Time Temp Pulse Resp B/P (MAP) Pulse Ox O2 Delivery O2 Flow Rate FiO2 01/01/20 18:43 96.5 61 20 172/66 98 Room Air Home Meds Active Scripts Cefepime Hcl/Dextrose, Iso-Osm (CEFEPIME 1 GM INJECTION) 1 Gm/50 Ml Froz.piggy, 1 GM IV BID for 4 Days Prov:JENELLE GARRIDO HEEL PAINTER 12/30/19 Furosemide (FUROSEMIDE) 40 Mg Tablet, 60 MG PO BID, #60 TAB 1 Refill Prov:JENELLE GARRIDO HEEL PAINTER 12/30/19 Reported Medications Simvastatin (SIMVASTATIN) 20 Mg Tablet, 20 MG PO 2100, EA 09/25/17 Levothyroxine Sodium (LEVOTHYROXINE SODIUM) 50 Mcg Tablet, 200 MCG PO DAILY, #30 TAB 09/25/17 Sitagliptin Phosphate (JANUVIA) 100 Mg Tablet, 50 MG PO DAILY, #30 TAB 09/25/17 Hydrocodone Bit/Acetaminophen (NORCO 5-325 TABLET) 1 Each Tablet, 1 EACH PO Q6H PRN for PAIN, TAB 09/25/17 Hydralazine Hcl (HYDRALAZINE HCL) 25 Mg Tab, 25 MG PO TID, TAB 09/25/17 Glimepiride (GLIMEPIRIDE) 2 Mg Tablet, 4 MG PO BID, TAB 09/25/17 Aspirin (ASPIR 81) 81 Mg Tablet.dr, 81 MG PO DAILY 09/25/17 Amlodipine Besylate/Benazepril (AMLODIPINE-BENAZEPRIL 10-40 MG) 1 Each Capsule, 1 CAP PO DAILY 09/25/17 Discontinued Reported Medications Carvedilol (CARVEDILOL) 12.5 Mg Tablet, 25 MG PO BID, #60 TAB 09/25/17 Discontinued Scripts Cefuroxime Axetil (CEFUROXIME) 250 Mg Tablet, 250 MG PO Q12H for 8 Days, TAB 0 Refills Prov:VIVIEN CHINCHILLA MD, ABIM 09/28/17 [doxycycline] No Conflict Check, 100 MG PO BID for 9 Days, 0 Refills Prov:VIVIEN CHINCHILLA MD, VESTA 09/28/17 KIRAN CABALLERO MD Jan 01, 2020 19:25
--- NOTE | 2020-01-01 19:46 | Diagnostic Imaging Report ---
EXAMINATION: CHEST SINGLE (PORTABLE) COMPARISON: Chest x-ray 12/28/2019 INDICATION: Shortness of breath. DISCUSSION: HEART AND MEDIASTINUM: Stable cardiomegaly. Pulmonary arteries are enlarged. Pulmonary vascular is prominent and indistinct. Bilateral perihilar peribronchial thickening perihilar streaky densities. Consultations of the aortic arch. LINES: None. Loop recorder device projected on the lateral lower left hemithorax. LUNGS/PLEURA: Redemonstration of multifocal bilateral patchy, but, perihilar airspace disease.. Bilateral pleural effusions, left larger than right. No pneumothorax. BONES AND SOFT TISSUES: No focal osseous lesion. The soft tissues are normal. IMPRESSION: 1. No significant interval change. Bilateral pulmonary venous congestion and interstitial edema with a moderate volume left pleural effusion with obscuration of the left hemithorax, probably atelectasis, however, consolidation not excluded. Signed by: Dr. Diego Shields M.D. on 01/01/2020 7:42 PM
[2020-01-01 19:58] LABS: BILIRUBIN,URINE NEGATIVE (NEGATIVE); CLARITY,URINE SL CLOUDY (CLEAR); COLOR,URINE YELLOW (YELLOW); KETONES,URINE NEGATIVE (NEGATIVE); LEUKOCYTE ESTERASE ,URINE TRACE (NEGATIVE); NITRITE,URINE NEGATIVE (NEGATIVE); PROTEIN,URINE DIPSTICK 2+ (NEGATIVE); URINE UROBILINOGEN 0.2 mg/dL (0.2 - 1)
[2020-01-01 19:59] LABS: BASOPHILS # (AUTO) 0.1 (0.0-0.1); BASOPHILS % 0.8 % (0.0-1.0); EOSINOPHILS # (AUTO) 0.3 (0.0-0.4); EOSINOPHILS % 4.3 % (0.0-6.0); HEMATOCRIT 36.8 % (34.2-44.1); HEMOGLOBIN 11.1 g/dL (12.0-16.0); LYMPHOCYTES # (AUTO) 1.3 (1.0-3.2); LYMPHOCYTES % 17.9 % (18.0-39.1); MEAN CORPUSCULAR HEMOGLOBIN 26.2 pg (28-32); MEAN CORPUSCULAR HGB CONC 30.2 g/dL (31-35); MONOCYTES # (AUTO) 0.6 (0.2-0.8); MONOCYTES % 8.5 % (4.4-11.3); NEUTROPHILS # (AUTO) 4.8 (2.1-6.9); NEUTROPHILS % 65.4 % (38.7-80.0); PLATELET COUNT 112 x10e3/uL (140-360); RED BLOOD COUNT 4.23 x10e6/uL (3.6-5.1); RED CELL DISTRIBUTION WIDTH 20.2 % (11.7-14.4)
[2020-01-01 20:06] LABS: INR 0.97; PROTHROMBIN TIME 13.4 seconds (11.9-14.5)
[2020-01-01 20:08] LABS: EPITHELIAL CELLS,URINE FEW /LPF; RBC,URINE 0-5 /HPF (0-5)
[2020-01-01 20:09] LABS: BACTERIA,URINE MANY /HPF; YEAST,URINE MODERATE
[2020-01-01 20:16] LABS: ALBUMIN 2.9 g/dL (3.5-5.0); ANION GAP 15.1 mmol/L (8-16); CREATININE, SERUM 1.11 mg/dL (0.57-1.11); POTASSIUM 4.1 mmol/L (3.5-5.1)
[2020-01-01 20:23] LABS: CREATINE KINASE MB 3.1 ng/mL (0-5.0)
--- NOTE | 2020-01-01 20:48 | Diagnostic Imaging Report ---
CT BRAIN WO HISTORY: Slurred speech COMPARISON: None. Technique: Noncontrast axial scans were obtained from skull base to the vertex. Coronal and sagittal reconstructions obtained from the axial data. One or more of the following dose reduction techniques were used: Automated exposure control, adjustment of the mA and/or kV according to patient size, and/or utilization of iterative reconstruction technique. Beam hardening artifacts obscure some details. DISCUSSION: Scalp/Skull: Unremarkable. Brain sulci: Mildly prominent. Ventricles: Compensatory dilatation. Extra-axial spaces: No masses or fluid collections. Carotid siphon calcifications are present. Parenchyma: Small juxtacortical hypodensities in the left superior frontal gyrus, left posterior middle frontal gyrus, and left precentral gyrus may be due to age indeterminate infarcts. Mild bilateral deep white matter hypodensity is likely chronic microvascular ischemic change. Otherwise, no masses, hemorrhage, or large vascular territory acute infarct. Dural sinuses: No abnormal densities. Sellar/Suprasellar region: Intact. Skull base: Intact. Incidental findings: Right ocular lens replacement. IMPRESSION: 1. Small juxtacortical hypodensities in the left superior frontal gyrus, left posterior middle frontal gyrus, and left precentral gyrus may be due to age indeterminate infarcts. 2. No other acute intracranial abnormalities. 3. Mild supratentorial chronic microvascular ischemic change. Mild generalized cerebral volume loss. Signed by: Dr. Micha Crocker M.D. on 01/01/2020 8:44 PM
[2020-01-01] MEDS ORDERED: FUROSEMIDE INJ 10 MG/ML 4 ML VIAL IV ONE (21:00)
--- OUTSIDE RECORDS SUMMARY | 2020-01-01 21:40 | XMS REPORT | Clinical Summary ---
Author Author [facility] Address Unknown Phone Unavailable Care Team Providers [facility] Medical Specialist Name Role Phone Yoan Long MD PCP [...] Effective Phone Address Plan / Dates Group [facility] [id number] 2014-P MEDICARE resent ADV [phone] [phone] [place] [address] Advance Directives For more information, please contact: [phone] Date Inactivated Comments Code Status Date Activated 11/24/2018 3:10 PM Full Code 11/20/2018 3:43 PM This code status was determined by: Patient 07/26/2018 4:55 PM Full Code 07/19/2018 7:41 PM This code status was determined by: Patient 07/19/2018 7:41 PM Full Code 07/18/2018 4:43 PM This code status was determined by: Patient
--- OUTSIDE RECORDS SUMMARY | 2020-01-01 21:41 | XMS REPORT | Continuity of Care Document ---
Author Author [facility] t Organization [facility] Address [address] [place] [address] Phone Unavailable Care Team Providers [employer] Sales Representative Name Role Phone NO, PCP PCP Unavailable Arlen CABALLERO Attphys Unavailable Trevon MARIANO Attphys Unavailable LONNY CH Attphys Unavailable Trevon MARIANO YICHING Admphys Unavailable HEAVENLY STALLINGS Admphys Unavailable Payers Payer Name Policy Type Policy Number Effective Date Expiration Date loren Kelsey Care Medicare Advantage [id number] 2014 00:0 0:00 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 Dis ease Active 2018-07-20 00:00:00 [facility] Acute post-operative pain Acute post-operative pain Disease Ac tive 2018-07-20 00:00:00 [facility] Acute hypercapnic respiratory failure Acute hypercapnic resp iratory failure Disease Active 2018-07-20 00:00:00 [facility] Bradycardia Bradycardia Disease Active 2018-07-20 00:00:00 [facility] Acute prerenal azotemia Acute prerenal azotemia Disease Active 2018-07-20 00:00:00 [facility] Anemia due to chronic kidney disease Anemia due to chronic k idney disease Disease Active 2018-07-20 00:00:00 [facility] Pericardial effusion Pericardial effusion Disease Active 00:00:00 [facility] Dyspnea and respiratory abnormality Dyspnea and respiratory abno rmality Disease Active 2018-07-18 00:00:00 [facility] Acute diastolic CHF (congestive heart failure) Acute d iastolic CHF (congestive heart failure) Disease Active 2018-07-18 00:00:00 [facility] Congestive heart failure Congestive heart failure (CHF) Problem Active [facility] Renal insufficiency Problem Active [facility] Allergies, Adverse Reactions, Alerts Allergy Name Allergy Type Status Severity Reaction(s) Onset Date Inacti ve Date Treating Clinician Comments Source Codeine Drug Allergy Active Other (See Comments) 2018-07-18 00: 00:00 headache [facility] Iodinated Contrast Media Drug Allergy Active Hives 2018-07-18 00: 00:00 [facility] Iodine Allergy to substance Active Severe 2017-09-24 00:00:00 [facility] Codeine Allergy to substance Active Severe 2017-09-24 00:00:00 [facility] Social History Social Habit Start Date Stop Date Quantity Comments Source History SDOH Alcohol Std Drinks [facility] History SDOH Alcohol Binge [facility] Sex Assigned At [facility] Tobacco use and exposure 2018-11-28 00:00:00 2018-11-28 00:00:00 Carlos r used [facility] Alcohol intake 2018-11-28 00:00:00 2018-11-28 00:00:00 Current non-drinker of alcohol (finding) [facility] [place] r History SDOH Alcohol Frequency 2018-07-18 00:00:00 2018-07-18 00:00:0 0 1 [facility] Smoking Status Start Date Stop Date Source Never smoker [facility] Medications Ordered Medication Name Filled Medication Name Start Date Stop Da te Current Medication? Ordering Clinician Indication Dosage Frequency Signature (SIG) Comments Components Source Cefepime Hcl/Dextrose, Iso-Osm (Cefepime 1 Gm Injectio n) 1 Gm/50 Ml FROZ.PIGGY Cefepime Hcl/Dextrose, Iso-Osm (Cefepime 1 Gm Injection) 1 Gm/50 Ml FROZ.PIGGY 2019-12-30 11:08:[address] [facility] Furosemide Furosemide 2019-12-30 11:08:00 Yes [address] [facility] folic acid (FOLVITE) 1 MG tablet 2018-11-25 00:00:00 2019-11 23:59:00 No 1mg QD Take 1 tablet (1 mg total) by mouth daily. [facility] aspirin 81 MG EC tablet 2018-11-24 13:10:27 Yes 81mg QD Take 81 mg by mouth daily. [facility] ipratropium (ATROVENT) 0.03 % 0.03% nasal spray 2018-11-24 13:10 :27 Yes 2{spray} 2 sprays by Nasal route every 12 (twelve) hours. [facility] levothyroxine (SYNTHROID, LEVOTHROID) 200 MCG tablet 2 13:10:27 Yes 200ug Take 200 mcg by mouth Every morning on a n empty stomach. [facility] simvastatin (ZOCOR) 20 MG tablet 2018-11-24 13:10:27 Yes 20mg QD Take 20 mg by mouth nightly. [facility] SITagliptin (JANUVIA) 50 MG tablet 2018-11-24 13:10:27 Yes 50mg QD Take 50 mg by mouth daily. [facility] carvedilol (COREG) 12.5 MG tablet 2018-11-24 00:00:00 2019 23:59:00 No 12.5mg Take 1 tablet (1 2.5 mg total) by mouth 2 (two) times daily with breakfast and dinner. [facility] furosemide (LASIX) 40 MG tablet 2018-11-24 00:00:00 23:59:00 No 40mg Q.5D Take 1 tablet (40 mg total) by mouth 2 (two) ti mes daily. [facility] hydrALAZINE (APRESOLINE) 100 MG tablet 6 00:00:00 2019-11-24 23:59:00 No 100mg Q.[id number] Ta ke 1 tablet (100 mg total) by mouth 3 (three) times daily. [facility] lisinopril (PRINIVIL,ZESTRIL) 20 MG tablet 11-24 00:00:00 2019-11-24 23:59:00 No 20mg Q.5D Take 1 tablet (20 mg total) by mouth 2 (two) times daily. [facility] cyanocobalamin 1000 MCG tablet 2018-11-24 00:00:00 2019-11-24 23 :59:00 No 1000ug QD Take 1 tablet (1,000 mcg total) by mouth daily. [facility] ferrous sulfate 325 (65 FE) MG tablet 2018-11-24 00:00 :00 2019-11-24 23:59:00 No 325mg Q.5D Take 1 tablet (325 mg total) b y mouth 2 (two) times daily. [facility] amLODIPine (NORVASC) 10 MG tablet 2018-07-27 00:00:00 2019 23:59:00 No 10mg QD Take 1 tablet (10 mg total) by mouth geeta cuba [facility] Cefuroxime Axetil (Cefuroxime) 250 Mg TABLET Cefuroxim e Axetil (Cefuroxime) 250 Mg TABLET 2017-09-28 14:51:00 2019-12-30 00:00:00 [address] [facility] Doxycycline Doxycycline 2017-09-28 14:51:00 2019-12-30 00:00:00 No 100 Twice A Day [facility] Furosemide Furosemide 2017-09-28 14:42:00 2019-12-30 00:00:00 No 60 Daily [facility] Amlodipine Besylate/Benazepril (Amlodipine-Benazepril 10-40 Mg) 1 Each CAPSULE Amlodipine Besylate/Benazepril (Amlodipine-Benazepril 10-40 Mg) 1 Each CAPSULE Yes 1 Daily [facility] Aspirin (Aspir 81) 81 Mg TABLET. Aspirin (Aspir 81) 81 Mg TABLET. Yes [address] [facility] Carvedilol Carvedilol Yes [address] [facility] Glimepiride Glimepiride Yes [address] [facility] Hydralazine Hcl Hydralazine Hcl Yes 25 Three Ti mes A Day [facility] Hydrocodone Bit/Acetaminophen ([place] 5-325 Tablet) 1 E ach TABLET Hydrocodone Bit/Acetaminophen ([place] 5-325 Tablet) 1 Each TABLET Yes 1 Every 6 Hours as needed for Pain [facility] Levothyroxine Sodium Levothyroxine Sodium Yes [address] [facility] Simvastatin Simvastatin Yes 20 Today At 9:00PM [facility] Sitagliptin Phosphate (Januvia) 100 Mg TABLET Sitaglip tin Phosphate (Januvia) 100 Mg TABLET Yes 50 Daily [facility] Furosemide Furosemide 2017-09-28 00:00:[address] [facility] Vital Signs Vital Name Observation Time Observation Value Comments Source Body Temperature 2019-12-30 12:22:00 97.5 [degF] [facility] Heart Rate 2019-12-30 12:22:00 66 /min [facility] Respiratory rate 2019-12-30 12:22:00 19 /min [facility] BP Systolic 2019-12-30 12:22:00 162 mm[Hg] [facility] BP Diastolic 2019-12-30 12:22:00 62 mm[Hg] [facility] Oxygen saturation by Pulse oximetry 2019-12-30 12:22:00 96 /min [facility] Weight 2019-12-25 05:39:00 235 [lb_av] [facility] BMI (Body Mass Index) 2019-12-25 05:39:00 37.9 kg/m2 [facility] Procedures This patient has no known procedures. Plan of Care Planned Activity Planned Date Details Comments Source Future Scheduled Test 2019-10-21 00:00:00 INFLUENZA VACCINE (#1) [code = [facility] (#[facility] 2015-02-20 00:00:00 MEDICARE ANNUAL WE LLNESS (YEAR 2 or FIRST YEAR if no IPPE) [code = MEDICARE ANNUAL WELLNESS (YEAR 2 or FIRST YEAR if no IPPE)] [facility] Instructions Cardiac Disease Risk Factors [facility] Instructions Congestive Heart Failure [facility] Encounters Start Date/Time End Date/Time Encounter Type Admission Type [facility] Care Department Encounter ID Source 2019-12-24 18:29:00 2019-12-30 14:58:00 Discharged Inpatient 1 MARIANO [facility] [id number] [facility] 2017-09-25 01:09:00 2017-09-28 17:50:00 Discharged Inpatient 1 [facility] [facility] [id number] [facility] Results Test Description Test Time Test Comments Results Result Comments Source CT BRAIN WO 2020-01-01 20:37:00 [facility] 1935 Sex: [place] [address] Patient Name: ANGELO BARTON MR #: [id number] : 1935 Age/Sex: 84/F Req #: [id number] Adm Physician: Ordered by: KIRAN CABALLERO MD Report #: [id number] Location: ER Room/Bed: Procedure: [id number] CT/CT BRAIN WO Exam Date: 01/01/20 Exam Time: 1900 REPORT STATUS: Signed CT BRAIN WO HISTORY: Slurred speech COMPARISON: None. Technique: Noncontrast axial scans were obtained from skull base to the vertex. Coronal and sagittal reconstructions obtained from the axial data. One or more of the following dose reduction techniques were used: Automated exposure control, adjustment of the mA and/or kV according to patient size, and/or utilization of iterative reconstruction technique. Beam hardening artifacts obscure some details. DISCUSSION: Scalp/Skull: Unremarkable. Brain sulci: Mildly prominent. Ventricles: Compensatory dilatation. Extra-axial spaces: No masses or fluid collections. Carotid siphon calcifications are present. Parenchyma: Small juxtacortical hypodensities in the left superior frontal gyrus, left posterior middle frontal gyrus, and left precentral gyrus may be due to age indeterminate infarcts. Mild bilateral deep white matter hypodensity is likely chronic microvascular ischemic change. Otherwise, no masses, hemorrhage, or large vascular territory acute infarct. Dural sinuses: No abnormal densities. Sellar/Suprasellar region: Intact. Skull base: Intact. Incidental findings: Right ocular lens replacement. IMPRESSION: 1. Small juxtacortical hypodensities in the left superior frontal gyrus, left posterior middle frontal gyrus, and left precentral gyrus may be due to age indeterminate infarcts. 2. No other acute intracranial abnormalities. 3. Mild supratentorial chronic microvascular ischemic change. Mild generalized cerebral volume loss. Signed by: Dr. Micha Crocker M.D. on 01/01/2020 8:44 PM Dictated By: MICHA CROCKER MD 43 Transcribed By: DEXTER on 01/01/202043 COPY TO: KIARN CABALLERO MD CHEST SINGLE (PORTABLE) 2020-01-01 19:40:00 [facility] : 1935 Sex: F [place] [address] Patient Name: ANGELO BARTON MR #: [id number] : 1935 Age/Sex: 84/F Req #: [id number] Adm Physician: Ordered by: KIRAN CABALLERO MD Report #: [id number] Location: ER Room/Bed: Procedure: [id number] DX/CHEST SINGLE (PORTABLE) Exam Date: Exam Time: REPORT STATUS: Signed EXAMINATION: CHEST SINGLE (PORTABLE) COMPARISON: Chest x-ray 12/28/2019 INDICATION: Shortness of breath. DISCUSSION: HEART AND MEDIASTINUM: Stable cardiomegaly. Pulmonary arteries are enlarged. Pulmonary vascular is prominent and indistinct. Bilateral perihilar peribronchial thickening perihilar streaky densities. Consultations of the aortic arch. LINES: None. Loop recorder device projected on the lateral lower left hemithorax. LUNGS/PLEURA: Redemonstration of multifocal bilateral patchy, but, perihilar airspace disease.. Bilateral pleural effusions, left larger than right. No pneumothorax. BONES AND SOFT TISSUES: No focal osseous lesion. The soft tissues are normal. IMPRESSION: 1. No significant interval change. Bilateral pulmonary venous congestion and interstitial edema with a moderate volume left pleural effusion with obscuration of the left hemithorax, probably atelectasis, however, consolidation not excluded. Signed by: Dr. Diego Gonzales M.D. on 01/01/2020 7:42 PM Dictated By: GERALDINE GONZALES MD, MD 41 Transcribed By: DEXTER on 01/01/201941 COPY TO: KIRAN CABALLERO MD Capillary blood glucose measurement by glucometer (mas s/volume) 2019-12-30 11:45:00 Test Item Bedside Glucose (test code = 71533-2) 128 mg/dL 70-120 Meter ID: [id number] or plasma sodium measurement (moles/volume)2019-12-30 05:55:00* Test Item Value Reference Range Interpretation Comments Sodium Level (test code = 2951-2) 142 mmol/L 136-145 [facility] plasma potassium measurement (moles/volume)2019-12-30 05:55:00* Test Item Value Reference Range Interpretation Comments Potassium Level (test code = 2823-3) 4.2 mmol/L 3.5-5.1 [facility] plasma chloride measurement (moles/volume)2019-12-30 05:55:00* Test Item Value Reference Range Interpretation Comments Chloride Level (test code = 2075-0) 104 mmol/L 98-107 [facility] or plasma carbon dioxide, total measurement (moles/volume)2019-12-30 05:55:00* Test Item Value Reference Range Interpretation Comments Carbon Dioxide Level (test code = 2028-9) 30 mmol/L 22-29 [facility] or plasma anion [id number] 05:55:00* Test Item Value Reference Range Interpretation Comments Anion Gap (test code = 69180-9) 12.2 mmol/L 8-16 [facility] plasma urea nitrogen measurement (mass/volume)2019-12-30 05:55:00* Test Item Value Reference Range Interpretation Comments Blood Urea Nitrogen (test code = 3094-0) 30 mg/dL 7-26 [facility] plasma creatinine measurement (mass/volume)2019-12-30 05:55:00* Test Item Value Reference Range Interpretation Comments Creatinine (test code = 2160-0) 0.99 mg/dL 0.57-1.11 [facility] or plasma urea nitrogen/creatinine mass [id number] 05:55:00* Test Item Value Reference Range Interpretation Comments BUN/Creatinine Ratio (test code = 3097-3) 30 6- [facility] HospitalEstimated glomerular filtration rate (GFR) ibusyxbzuivwm3944-52-18 05:55:00* Test Item Value Reference Range Interpretation Comments Estimat Glomerular Filtration Rate (test code = 554195783) 54 mL/mi n >60 Ranges were taken from the National Kidney Disease Education Program and the [facility] Kidney Foundation literature.Reference ranges:60 or greater: Kgbdga80-26 ( for 3 consecutive months): Chronic kidney disease 15 or less: Kidney failureSt. Luke's Health – [facility]ston HospitalGlucose enjkxesagkn3318-29-60 05:55:00* Test Item Value Reference Range Interpretation Comments Glucose Level (test code = YRA3105) 104 mg/dL 74-118 [facility] or plasma calcium measurement (mass/volume)2019-12-30 05:55:00* Test Item Value Reference Range Interpretation Comments Calcium Level (test code = 16587-0) 8.5 mg/dL 8.4-10.2 [facility] HospitalBlood leukocytes automated count (number/volume)2019-12-29 06:04:00* Test Item Value Reference Range Interpretation Comments White Blood Count (test code = 6690-2) 8.01 10*3/uL 4.8-10.8 [facility] HospitalBlood erythrocytes automated count (number/volume)2019-12-29 06:04:00* Test Item Value Reference Range Interpretation Comments Red Blood Count (test code = 789-8) 4.12 10*6/mL 3.6-5.1 [facility] HospitalBlood hemoglobin measurement (moles/volume)2019-12-29 06:04:00* Test Item Value Reference Range Interpretation Comments Hemoglobin (test code = 57904-5) 10.8 g/dL 12.0-16.0 [facility] HospitalAutomated blood hematocrit (volume fraction)2019-12-29 06:04:00* Test Item Value Reference Range Interpretation Comments Hematocrit (test code = 4544-3) 35.8 % 34.2-44.1 [facility] HospitalAutomated erythrocyte mean corpuscular [id number] 06:04:00* Test Item Value Reference Range Interpretation Comments Mean Corpuscular Volume (test code = 787-2) 86.9 81-99 [facility] HospitalAutomated erythrocyte mean corpuscular hemoglobin (mass per erythrocyte)2019-12-29 06:04:00* Test Item Value Reference Range Interpretation Comments Mean Corpuscular Hemoglobin (test code = 785-6) 26.2 pg 28-32 [facility] HospitalAutomated erythrocyte mean corpuscular hemoglobin concentration measurement (mass/volume)2019-12-29 06:04:00* Test Item Value Reference Range Interpretation Comments Mean Corpuscular Hemoglobin Concent (test code = 786-4) 30.2 g/dL 31-35 [facility] HospitalRDW YanHd-Wtc1171-79-09 06:04:00* Test Item Value Reference Range Interpretation Comments Red Cell Distribution Width (test code = 60920-5) 20.0 % 11.7 -14.4 [facility] HospitalAutomated blood platelet count (count/volume)2019-12-29 06:04:00* Test Item Value Reference Range Interpretation Comments Platelet Count (test code = 777-3) 175 10*3/uL 140-360 [facility] HospitalAutomated blood segmented neutrophil count as percentage of total nvkwmzmvia8821-79-45 06:04:00* Test Item Value Reference Range Interpretation Comments Neutrophils (%) (Auto) (test code = 12531-2) 66.4 % 38.7-80.0 [facility] HospitalAutomated blood lymphocyte count as percentage ot total dgktcpkfds1634-38-55 06:04:00* Test Item Value Reference Range Interpretation Comments Lymphocytes (%) (Auto) (test code = 736-9) 13.7 % 18.0-39.1 [facility] HospitalAutomated blood monocyte count as percentage of total zfpkyjlcvr2632-43-71 06:04:00* Test Item Value Reference Range Interpretation Comments Monocytes (%) (Auto) (test code = 5905-5) 8.5 % 4.4-11.3 [facility] HospitalAutomated blood eosinophil count as percentage of total cvygcprnrm8064-73-75 06:04:00* Test Item Value Reference Range Interpretation Comments Eosinophils (%) (Auto) (test code = 713-8) 4.4 % 0.0-6.0 [facility] blood basophil count as percentage of total eduhfzxkgz6394-55-31 06:04:00* Test Item Value Reference Range Interpretation Comments Basophils (%) (Auto) (test code = 706-2) 1.0 % 0.0-1.0 [facility] HospitalFluoroscopic procedure less than one hour ncivirfw6177-74-20 06:04:00* Test Item Value Reference Range Interpretation Comments IM GRANULOCYTES % (test code = IM GRANULOCYTES %) 6.0 % 0.0- 1.0 [facility] HospitalAutomated blood neutrophil count 2019-12-29 06:04:00* Test Item Value Reference Range Interpretation Comments Neutrophils # (Auto) (test code = 751-8) 5.3 2.1-6.9 [facility] HospitalBlood lymphocytes count (number/volume) 2019-12-29 06:04:00* Test Item Value Reference Range Interpretation Comments Lymphocytes # (Auto) (test code = 26053-6) 1.1 1.0-3.2 [facility] monocytes automated count (number/volume)2019-12-29 06:04:00* Test Item Value Reference Range Interpretation Comments Monocytes # (Auto) (test code = 742-7) 0.7 0.2-0.8 [facility] HospitalAutomated blood eosinophil count 2019-12-29 06:04:00* Test Item Value Reference Range Interpretation Comments Eosinophils # (Auto) (test code = 711-2) 0.4 0.0-0.4 [facility] HospitalAutomated blood basophil count (count/volume)2019-12-29 06:04:00* Test Item Value Reference Range Interpretation Comments Basophils # (Auto) (test code = 704-7) 0.1 0.0-0.1 [facility] HospitalFluoroscopic procedure less than one hour [id number] 06:04:00* Test Item Value Reference Range Interpretation Comments Absolute Immature Granulocyte (auto (maureen t code = Absolute Immature Granulocyte (auto) 0.48 10*3/uL 0-0.1 [facility] HospitalCHEST SINGLE (PORTABLE)2019-12-28 12:53:00[facility] 1935 Sex: F [place] [address] Patient Name: ANGELO BARTON MR #: [id number] : 1935 Age/Sex: 84/F Req #: [id number] Adm Physician: JIMMY MARIANO MD Ordered by: JENELLE GARRIDO NETWORK SECURITY CONSULTANT Report #: [id number] Location: MED/SURG3 Room/Bed: 296-1 Procedure: [id number] DX/CHEST SINGLE (PORTABLE) Exam Da te: 12/28/19 Exam Time: 1230 REPORT STATUS: Signed EXAMINATION: CHEST SINGLE (PORTAB LE) COMPARISON: Chest x-ray 12/26/2019 INDICATION: sob 2019 1108 1230 DISCUSSION: Frontal view of the [...] 12:55 PM Dictated By: KASIE KESSLER MD 1255 Transcribed By: DEXTER on 12/28/19 1255 COPY TO: JENELLE GARRIDO NP CHEST SINGLE (PORTABLE)2019-12-26 12:05:00 [facility] : 1935 Sex: F [facility] [address] [place] [address] Patient Name: ANGELO BARTON MR #: [id number] : 1935 Age/Sex: 84/F Req #: [id number] Adm Physician: JIMMY MARIANO MD Ordered by: JENELLE GARRIDO NETWORK SECURITY CONSULTANT Report #: [id number] Location: MED/SURG [facility] Procedure: [id number] DX/CHEST SINGLE (PORTABLE) Exam Da te: 12/26/19 [...] (test code = 2157-6) 18 [IU]/L 29-168 [facility] or plasma creatine kinase MB measurement (mass/volume)2019-12-25 11:57:00* Test Item Value Reference Range Interpretation Comments Creatine Kinase MB (test code = 51593-9) 2.10 ng/mL 0-5.0 [facility] HospitalTroponin I measurement by highly sensitive enzyme qazxzsrjwdq5497-58-07 11:57:00* Test Item Value Reference Range Interpretation Comments Troponin I (test code = 34138-5) 0.012 ng/mL 0-0.300 [facility] or plasma thyrotropin measurement by detection limit <= 0.005 miu/l (units/volume)2019-12-25 11:57:00* Test Item Value Reference Range Interpretation Comments Thyroid Stimulating Hormone (TSH) (test code = 86208-7) 11.510 0.350-4.940 [facility]: 0.350-5.500 ulU/mLCRolling Plains Memorial HospitalFluoroscopic procedure less than one hour duration 2019-12-25 05:15:00* Test Item Value Reference Range Interpretation Comments Differential Total Cells Counted (test code = Differlester tiadario Total Cells Counted) 100 [facility] blood neutrophils/100 leukocytes 2019-12-25 05:15:00* Test Item Value Reference Range Interpretation Comments Neutrophils % (Manual) (test code = 72314-2) 79 % 40-74 [facility] blood lymphocytes/100 leukocytes 2019-12-25 05:15:00* Test Item Value Reference Range Interpretation Comments Lymphocytes % (Manual) (test code = 737-7) 9 % 19-48 [facility] blood monocytes/100 leukocytes 2019-12-25 05:15:00* Test Item Value Reference Range Interpretation Comments Monocytes % (Manual) (test code = 744-3) 11 % 3.4-9.0 [facility] HospitalManual blood eosinophil count as percentage of total jrvwvrofnr3592-84-21 05:15:00* Test Item Value Reference Range Interpretation Comments Eosinophils % (Manual) (test code = 714-6) 1 % 0-7 [facility] HospitalBlood platelets count by estimate (number/volume)2019-12-25 05:15:00* Test Item Value Reference Range Interpretation Comments Platelet Estimate (test code = 52730-3) ADEQUATE [facility] HospitalPlatelet vhrnwzlynq1499-10-10 05:15:00* Test Item Value Reference Range Interpretation Comments Platelet Morphology Comment (test code = 58946-4) NORMAL [facility] anis[facility] detection by light nuprmkaxog3702-73-51 05:15:00* Test Item Value Reference Range Interpretation Comments Anisocytosis (test code = 702-1) MODERATE [facility] ovalocytes detection by light zwbruvjlqe7098-80-18 05:15:00* Test Item Value Reference Range Interpretation Comments Ovalocytes (test code = 774-0) FEW [facility] HospitalRBC vadnkegqtk9530-67-21 05:15:00* Test Item Value Reference Range Interpretation Comments Red Cell Morphology Comment (test code = 6742-1) ABNORMAL [facility] plasma total bilirubin measurement (mass/volume)2019-12-25 05:15:00* Test Item Value Reference Range Interpretation Comments Total Bilirubin (test code = 1975-2) 0.5 mg/dL 0.2-1.2 [facility] HospitalFluoroscopic procedure less than one hour mzjzyqnv0827-11-20 05:15:00* Test Item Value Reference Range Interpretation Comments Aspartate Amino Transf (AST/SGOT) (test code = Aspartate Amino Transf (AST/SGOT)) 9 [IU]/L 5-34 [facility] or plasma alanine aminotransferase measurement (enzymatic activity/volume)2019-12-25 05:15:00* Test Item Value Reference Range Interpretation Comments Alanine Aminotransferase (ALT/SGPT) (test code = 1742-6) < 6 [IU]/L 0-55 [facility] or plasma protein measurement (mass/volume)2019-12-25 05:15:00* Test Item Value Reference Range Interpretation Comments Total Protein (test code = 2885-2) 5.3 g/dL 6.5-8.1 [facility] or plasma albumin measurement (mass/volume)2019-12-25 05:15:00* Test Item Value Reference Range Interpretation Comments Albumin (test code = 1751-7) 2.8 g/dL 3.5-5.0 [facility] HospitalPlasma globulin measurement (mass/volume) 2019-12-25 05:15:00* Test Item Value Reference Range Interpretation Comments Globulin (test code = 81997-6) 2.5 g/dL 2.3-3.5 [facility] or plasma albumin/globulin mass ddcux2852-58-93 05:15:00* Test Item Value Reference Range Interpretation Comments Albumin/Globulin Ratio (test code = 1759-0) 1.1 0.8-2.0 [facility] or plasma alkaline phosphatase measurement (enzymatic activity/volume)2019-12-25 05:15:00* Test Item Value Reference Range Interpretation Comments Alkaline Phosphatase (test code = 6768-6) 72 [IU]/L 40-150 [facility] HospitalFluoroscopic procedure less than one hour ogjgzwyc9272-74-52 18:39:00* Test Item Value Reference Range Interpretation Comments Coronavirus (PCR) (test code = Coronavirus (PCR)) NOT DETECTED NOTD ETECTED SARS-CoV-2 PCRHologic Aptima SARS-CoV-2 assay is a nucleic amplification test in tended for the qualitative detection of RNA from SARS-CoV-2 from nasopharyngeal (NETWORK SECURITY CONSULTANT) specimens. It is used under Emergency Use [...] repr at testing oc clinically indicated.Tesing performed by:[facility] Laboratory Services3 [facility] [id number], Bony negron MD, PhDSt. [facility] HospitalUrine color determination 2019-12-24 16:45:00* Test Item Value Reference Range Interpretation Comments Urine Color (test code = 5778-6) YELLOW YELLOW [facility] HospitalUrine dgpvtul8177-60-63 16:45:00* Test Item Value Reference Range Interpretation Comments Urine Clarity (test code = 14078-7) CLEAR CLEAR [facility] Worthpecific gravity of Urine by Test strip 2019-12-24 16:45:00* Test Item Value Reference Range Interpretation Comments Urine Specific [place] (test code = 5811-5) 1.015 1.010-1.[address] [facility] HospitalUrine pH measurement by automated test akino6857-06-20 16:45:00* Test Item Value Reference Range Interpretation Comments Urine pH (test code = 39712-3) 5.5 5-7 [facility] HospitalUrine leukocyte esterase detection by roctggxp1056-73-60 16:45:00* Test Item Value Reference Range Interpretation Comments Urine Leukocyte Esterase (test code = 5799-2) NEGATIVE NEGATIVE [facility] HospitalUrine nitrite jytbecvln0975-68-58 16:45:00* Test Item Value Reference Range Interpretation Comments Urine Nitrite (test code = 13873-7) NEGATIVE NEGATIVE [facility] HospitalUrine protein measurement by test strip (mass/volume)2019-12-24 16:45:00* Test Item Value Reference Range Interpretation Comments Urine Protein (test code = 5804-0) 2+ NEGATIVE [facility] HospitalUrine glucose yqehqzvcp9131-27-31 16:45:00* Test Item Value Reference Range Interpretation Comments Urine Glucose (UA) (test code = 2349-9) NEGATIVE NEGATIVE [facility] HospitalUrine ketones detection by automated test bvbri5448-19-51 16:45:00* Test Item Value Reference Range Interpretation Comments Urine Ketones (test code = 43792-3) NEGATIVE NEGATIVE [facility] HospitalUrine urobilinogen measurement by test strip (mass/volume)2019-12-24 16:45:00* Test Item Value Reference Range Interpretation Comments Urine Urobilinogen (test code = 29079-6) 0.2 mg/dL 0.2-1 [facility] HospitalUrine total bilirubin measurement (mass/volume)2019-12-24 16:45:00* Test Item Value Reference Range Interpretation Comments Urine Bilirubin (test code = 1978-6) NEGATIVE NEGATIVE [facility] HospitalUrine erythrocytes roxcvqsdh8214-29-27 16:45:00* Test Item Value Reference Range Interpretation Comments Urine Blood (test code = 56422-7) NEGATIVE NEGATIVE [facility] HospitalAutomated urine sediment leukocyte count by microscopy (number/high power field)2019-12-24 16:45:00* Test Item Value Reference Range Interpretation Comments Urine WBC (test code = 5821-4) NONE /[HPF] 0-5 [facility] HospitalErythrocytes detection in urine sediment by light aarvfhkfif8826-11-47 16:45:00* Test Item Value Reference Range Interpretation Comments Urine RBC (test code = 54623-3) NONE /[HPF] 0-5 [facility] HospitalBacteria detection in urine sediment by light hkugkyjxgc3044-51-65 16:45:00* Test Item Value Reference Range Interpretation Comments Urine Bacteria (test code = 76858-4) FEW /[HPF] NONE [facility] HospitalEpithelial cells detection in urine sediment by light jqcsfzvmvm0226-25-17 16:45:00* Test Item Value Reference Range Interpretation Comments Urine Epithelial Cells (test code = 95171-1) FEW /[LPF] NONE [facility] HospitalTransitional cells detection in urine sediment by light yxdpbrqzug6019-95-88 16:45:00* Test Item Value Reference Range Interpretation Comments Urine Transitional Epithelial Cells (test code = 8249-5) FEW NONE [facility] HospitalYeast detection in urine sediment by light sjlspxbfkn1260-98-94 16:45:00* Test Item Value Reference Range Interpretation Comments Urine Yeast (test code = 71565-4) MODERATE NONE [facility] HospitalBacterial urine llwmurw7869-99-09 16:45:00* Test Item Value Reference Range Interpretation Comments Urine Culture (test code = 630-4) PSEUDOMONAS AERUGINOSA LONI [facility]win [facility] HospitalCHE[facility]INGLE ([facility]ABLE)2019-12-24 15:47:00[facility] : 1935 Sex: F [place] [address] Patient Name: ANGELO BARTON MR #: [id number] : 1935 Age/Sex: 84/F Req #: [id number] [facility] Physician: Ordered by: FORTINO MARLEY MD Report #: [id number] Location: ER Room/Bed: Procedure: 9440-1230 DX/CHEST SINGLE (PORTABLE) Exam Christos e: 12/24/19 Exam Time: 1510 REPORT STATUS: Signed EXAMINATION: [...] MD 47 Transcrib ed By: DEXTER on 12/24/191547 COPY TO: FORTINO MARLEY MD Prothrombin time (PT) in platelet poor plasma by coagulation aowyd3336-88-02 14:35:00* Test Item Value Reference Range Interpretation Comments Prothrombin Time (test code = 5902-2) 14.1 s 11.9-14.5 [facility] HospitalINR in Platelet poor plasma by Coagulation htoyb9499-40-00 14:35:00* Test Item Value Reference Range Interpretation Comments Prothromb Time International Ratio (test code = 6301-6) 1.04 Oral Anticoagulant Therapy INR Values:1. Low Intensity Therapy 1.5 - 2.02 . Moderate Intensity Therapy 2.0 - 3.03. High Intensity Therapy(1) 2.5 - 3. 54. High Intensity Therapy(2) 3.0 - 4.05. Panic Value INR > 5.0 [facility] HospitalActivated partial thromboplastin time (aPTT) in platelet poor plasma by coagulation smilo4839-18-82 14:35:00* Test Item Value Reference Range Interpretation Comments Activated Partial Thromboplast Time (test code = 33828-5) 32.6 s 23.8-35.5 [facility] HospitalBNP Oge-fLtt9558-37-04 14:35:00* Test Item Value Reference Range Interpretation Comments B-Type Natriuretic Peptide (test code = 84410-6) 380.8 pg/mL 0-100 [facility] HospitalRAD, CHEST, 1 VIEW, NON [id number] 10:02:00Reason for exam:->chfFINAL REPORT INDICATION: chf TECHNIQUE: Chest radiograph, single view, portable technique. FINDINGS / IMPRESSION: Comparison to November 20.Again demonstrated is enlarged heart shadow representing cardiomegaly.Interval worsening of perihilar and interstitial edema.Pleural effusions are hiding in the posterior sulci, demonstrated on chest CT November 20. Signed: Ba Reed Verified Date/Time: 11/26/2018 10:02:09 Reading Location: [address] Ortho Consult Reading Room -GLUCOSE [id number] 12:09:00* Test Item Value Reference Range Interpretation Comments POC-GLUCOSE METER (BEAKER) (test code = 1538) 134 mg/dL 70-110 H TESTED AT [facility] [address] [facility] [address] POCT-GLUCOSE [id number] 07:50:00* Test Item Value Reference Range Interpretation Comments POC-GLUCOSE METER (BEAKER) (test code = 1538) 119 mg/dL 70-110 H TESTED AT [place] [address] [facility] [address] [id number] 07:17:00* Test Item Value Reference Range Interpretation Comments MAGNESIUM (BEAKER) (test code = 627) 2.1 mg/dL 1.6-2.6 Specimen slightly hemolyzed BASIC METABOLIC [id number] 07:17:00* Test Item Value Reference Range Interpretation [...] IS NOT APPLICABLE FOR DIALYSIS PATIENTS. POCT-GLUCOSE [id number] 21:13:00* Test Item Value Reference Range Interpretation Comments POC-GLUCOSE METER (BEAKER) (test code = 1538) 122 mg/dL 70-110 H TESTED AT [facility] [address] [facility] [address] POCT-GLUCOSE [id number] 17:02:00* Test Item Value Reference Range Interpretation Comments POC-GLUCOSE METER (BEAKER) (test code = 1538) 125 mg/dL 70-110 H TESTED AT [address] [address] POCT-GLUCOSE [id number] 13:06:00* Test Item Value Reference Range Interpretation Comments POC-GLUCOSE METER (BEAKER) (test code = 1538) 105 mg/dL 70-110 TESTED AT [place] [address] [facility] [address] POCT-GLUCOSE [id number] 08:00:00* Test Item Value Reference Range Interpretation Comments POC-GLUCOSE METER (BEAKER) (test code = 1538) 124 mg/dL 70-110 H TESTED AT [place] [address] [facility] [address] [id number] 06:01:00* Test Item Value Reference Range Interpretation Comments MAGNESIUM (BEAKER) (test code = 627) 1.9 mg/dL 1.6-2.6 BASIC METABOLIC [id number] 06:01:00* Test Item Value Reference Range Interpretation [...] DIALYSIS PATIENTS. CBC W/PLT COUNT & AUTO [id number] 05:07:00* Test Item Value Reference Range Interpretation [...] = 2801) 2 % 0-1 H POCT-GLUCOSE [id number] 21:16:00* Test Item Value Reference Range Interpretation Comments POC-GLUCOSE METER (BEAKER) (test code = 1538) 132 mg/dL 70-110 H TESTED AT [facility] [address] [facility] [address] POCT-GLUCOSE [id number] 16:56:00* Test Item Value Reference Range Interpretation Comments POC-GLUCOSE METER (BEAKER) (test code = 1538) 131 mg/dL 70-110 H TESTED AT [address] [address] POCT-GLUCOSE [id number] 12:37:00* Test Item Value Reference Range Interpretation Comments POC-GLUCOSE METER (BEAKER) (test code = 1538) 130 mg/dL 70-110 H TESTED AT [place] [address] [facility] [address] POCT-GLUCOSE [id number] 07:55:00* Test Item Value Reference Range Interpretation Comments POC-GLUCOSE METER (BEAKER) (test code = 1538) 118 mg/dL 70-110 H TESTED AT [place] [address] [facility] [address] [id number] 05:43:00* Test Item Value Reference Range Interpretation Comments FERRITIN (BEAKER) (test code = 361) 56 ng/mL 5-275 VITAMIN B12 AND [id number] 05:43:00* Test Item Value Reference Range Interpretation Comments VITAMIN B12 (BEAKER) (test code = 774) 208 pg/mL 213-816 L FOLATE (BEAKER) (test code = 362) 5.0 ng/mL >=7.0 L C-REACTIVE [id number] 05:16:00* Test Item Value Reference Range Interpretation Comments C-REACTIVE PROTEIN (BEAKER) (test code = 676) 0.92 mg/dL 0.00-0.5 0 H [id number] 05:12:00* Test Item Value Reference Range Interpretation Comments MAGNESIUM (BEAKER) (test code = 627) 2.0 mg/dL 1.6-2.6 BASIC METABOLIC [id number] 05:12:00* Test Item Value Reference Range Interpretation [...] 2590) 14 % 20-5 5 L RETICULOCYTE [id number] 04:47:00* Test Item Value Reference Range Interpretation Comments RETICULOCYTE COUNT PCT (BEAKER) (test code = 575) 2.7 % 0.5- 1.7 H POCT-GLUCOSE [id number] 20:31:00* Test Item Value Reference Range Interpretation Comments POC-GLUCOSE METER (BEAKER) (test code = 1538) 116 mg/dL 70-110 H TESTED AT [facility] [address] [facility] [address] POCT-GLUCOSE [id number] 16:06:00* Test Item Value Reference Range Interpretation Comments POC-GLUCOSE METER (BEAKER) (test code = 1538) 176 mg/dL 70-110 H TESTED AT [facility] [address] [facility] [address] POCT-GLUCOSE [id number] 12:19:00* Test Item Value Reference Range Interpretation Comments POC-GLUCOSE METER (BEAKER) (test code = 1538) 119 mg/dL 70-110 H TESTED AT [place] [address] [facility] [address] POCT-GLUCOSE [id number] 07:47:00* Test Item Value Reference Range Interpretation Comments POC-GLUCOSE METER (BEAKER) (test code = 1538) 110 mg/dL 70-110 TESTED AT [place] [address] [facility] [address] [id number] 06:25:00* Test Item Value Reference Range Interpretation Comments PHOSPHORUS (BEAKER) (test code = 604) 3.7 mg/dL 2.3-4.7 [id number] 06:25:00* Test Item Value Reference Range Interpretation Comments MAGNESIUM (BEAKER) (test code = 627) 2.0 mg/dL 1.6-2.6 BASIC METABOLIC [id number] 06:25:00* Test Item Value Reference Range Interpretation [...] DIALYSIS PATIENTS. CBC W/PLT COUNT & AUTO [id number] 05:35:00* Test Item Value Reference Range Interpretation [...] code = 2801) 1 % 0-1 POCT-GLUCOSE [id number] 21:13:00* Test Item Value Reference Range Interpretation Comments POC-GLUCOSE METER (GARETH) (test code = 1538) 157 mg/dL 70-110 H TESTED AT [facility] [address] [facility] [address] CT, CHEST, WITHOUT [id number] 19:37:00Reason for exam:->SHORTNESS OF BREATHFINAL REPORT EXAM: [...] edema , pneumonia or atelectasis. Signed: Matthew Pretty MDReport Verified Date/Time: 11/20/2018 19:37:22 Electronically signed by: MATTHEW PRETTY MD on 07:37 PM CREATININE, RANDOM [id number] 19:26:00* Test Item Value Reference Range Interpretation Comments CREATININE URINE (BEAKER) (test code = 375) 14.0 mg/dL Reference Range: No NormalsPROTEIN, RANDOM [id number] 19:26:00* Test Item Value Reference Range Interpretation Comments PROTEIN, URINE (BEAKER) (test code = 1569) 39 mg/dL 0-14 H TSH/FREE T4 IF [id number] 17:31:00* Test Item Value Reference Range Interpretation Comments THYROID STIMULATING HORMONE (BEAKER) (test code = 772) 4.55 uIU/mL 0.35-4.94 POCT-GLUCOSE [id number] 16:53:00* Test Item Value Reference Range Interpretation Comments POC-GLUCOSE METER (BEAKER) (test code = 1538) 116 mg/dL 70-110 H TESTED AT [facility] [address] [facility] [address] HEPATIC FUNCTION [id number] 16:25:00* Test Item Value Reference Range Interpretation [...] = 700) 367 pg/mL 0-100 H TROPONIN [id number] 12:37:00* Test Item Value Reference Range Interpretation [...] acidosis, acute neurological disease, and per sistent tachyarrhythmia.[id number] 12:31:00* Test Item Value Reference Range Interpretation Comments MAGNESIUM (BEAKER) (test code = 627) 2.1 mg/dL 1.6-2.6 BASIC METABOLIC [id number] 12:31:00* Test Item Value Reference Range Interpretation [...] 0 L CBC W/PLT COUNT & AUTO [id number] 12:01:00* Test Item Value Reference Range Interpretation [...] 1 % 0-1 URINALYSIS W/ REFLEX URINE [id number] 11:38:00* Test Item Value Reference Range Interpretation [...] = 2795) RAD, CHEST, 1 VIEW, NON [id number] 11:34:00Reason for exam:->dyspneaFINAL REPORT CLINICAL HISTORY: dyspnea TECHNIQUE: 1 view of the chest. COMPARISON: 07/25/2018 IMPRESSION: Left lower lung pleural-parenchymal opacity is unchanged. Right hilar fullness and right infrahilar lung opacity is also unchanged. Blunting of the right costophrenic angle is again seen. The cardiomediastinal silhouette is magnified by technique. Signed: Maria C Mg MD Report Verified Date/Time: 11/20/2018 11:34:26 Reading Location: [facility] Radiology Reading Room Electronically signed by: MARIA C MG M.D. on 11:34 AM AFB CULTURE + [id number] 10:21:00* Test Item Value Reference Range Interpretation Comments CULTURE (BEAKER) (test code = 1095) No acid-fast bacilli isolate d in 42 days AFB SMEAR (BEAKER) (test code = 994) No acid fast bacilli seen FUNGUS CULTURE + [id number] 16:16:00* Test Item Value Reference Range Interpretation Comments CULTURE (BEAKER) (test code = 1095) No fungus isolated in 28 days FUNGUS SMEAR (BEAKER) (test code = 1406) No fungi seen TISSUE [id number] 12:51:00Surgical Pathology Report Case: [id number] Authorizing Provider: Tito John, Collected: 07/20/2018 0849 Ordering Location: [facility] CV Recovery Room 2 Received: 07/22/2018 0910 Pathologist: Berto Hernández MD Specimen: Pericardium, Tissue- pericardium SOFT TISSUE, PERICARDIUM, EXCISION: - FIBROMEMBRANOUS TISSUE WITH MILD CHRONIC INFLAMMATION AND REACTIVE CHANGES Signing Pathologist Direct Phone Line: [phone] signed by Berto Hernández MD on 07/28/2018 at 12:51 PMA congo red stain is negative for apple green birefringence. [address], 746[address]Fmjyhitqzxn effusion A. Tissue pericardium The case was received in one part labeled with the patient's information and [id number], which corresponds with accompanying requisition slip.Received in [...] evaluated Immunohistochemistry technical testing was performed at [facility], Pathology Laboratory where it was developed and [...] of 1988 (CLIA-88) as qualified to perf or high complexity clinical laboratory testing.ANAEROBIC [id number] 08:21:00* Test Item Value Reference Range Interpretation Comments CULTURE (BEAKER) (test code = 1095) No anaerobes isolated POCT-GLUCOSE [id number] 12:15:00* Test Item Value Reference Range Interpretation Comments POC-GLUCOSE METER (BEAKER) (test code = 1538) 134 mg/dL 70-110 H TESTED AT [facility] [address] [facility] [address] POCT-GLUCOSE [id number] 08:20:00* Test Item Value Reference Range Interpretation Comments POC-GLUCOSE METER (BEAKER) (test code = 1538) 121 mg/dL 70-110 H TESTED AT [facility] [address] [facility] [address] [id number] 05:33:00* Test Item Value Reference Range Interpretation Comments MAGNESIUM (BEAKER) (test code = 627) 2.2 mg/dL 1.6-2.6 BASIC METABOLIC [id number] 05:33:00* Test Item Value Reference Range Interpretation [...] IS NOT APPLICABLE FOR DIALYSIS PATIENTS. POCT-GLUCOSE [id number] 23:19:00* Test Item Value Reference Range Interpretation Comments POC-GLUCOSE METER (BEAKER) (test code = 1538) 204 mg/dL 70-110 H TESTED AT [facility] [address] [facility] [address] POCT-GLUCOSE [id number] 17:29:00* Test Item Value Reference Range Interpretation Comments POC-GLUCOSE METER (BEAKER) (test code = 1538) 144 mg/dL 70-110 H TESTED AT [facility] [address] [facility] [address] POCT-GLUCOSE [id number] 12:09:00* Test Item Value Reference Range Interpretation Comments POC-GLUCOSE METER (BEAKER) (test code = 1538) 130 mg/dL 70-110 H TESTED AT [facility] [address] [facility] [address] POCT-GLUCOSE [id number] 07:54:00* Test Item Value Reference Range Interpretation Comments POC-GLUCOSE METER (BEAKER) (test code = 1538) 127 mg/dL 70-110 H TESTED AT [facility] [address] [facility] [address] RAD, CHEST, 1 VIEW, NON [id number] 06:50:00Reason for exam:->Status post CV SurgeryShould this be performed at the bedside?->YesFINAL REPORT RAD, CHEST, 1 VIEW, NON DEPT INDICATION: Status post CV Surgery COMPARISON: Prior day's exam FINDINGS: Portable frontal view of the chest. IMPRESSION: Lungs and pleura: Unchanged airspace and pleural opacities. No pneumothorax.Heart and mediastinum: Stable contours. Additional findings: None. Signed: [facility] Verified Date/Time: 07/25/2018 06:50:14 [id number] 06:39:00* Test Item Value Reference Range Interpretation Comments MAGNESIUM (BEAKER) (test code = 627) 2.4 mg/dL 1.6-2.6 BASIC METABOLIC [id number] 06:39:00* Test Item Value Reference Range Interpretation [...] IS NOT APPLICABLE FOR DIALYSIS PATIENTS. POCT-GLUCOSE [id number] 22:08:00* Test Item Value Reference Range Interpretation Comments POC-GLUCOSE METER (BEAKER) (test code = 1538) 131 mg/dL 70-110 H TESTED AT [facility] [address] [facility] [address] POCT-GLUCOSE [id number] 17:44:00* Test Item Value Reference Range Interpretation Comments POC-GLUCOSE METER (BEAKER) (test code = 1538) 185 mg/dL 70-110 H TESTED AT [address] [address] PROTEIN ELECTROPHORESIS, [id number] 15:57:00* Test Item Value Reference Range Interpretation [...] electrophoresis if light chain disease is suspected. [id number] (BEAKER) (test code = 2616) Jose Farias M.D. (electonic signature) PROTEIN TOTAL SERUM, SPEP (BEAKER) (test code = 2660) 5.1 gm/dL 6.0-8.3 L Low albumin content also noted.POCT-GLUCOSE [id number] 14:16:00* Test Item Value Reference Range Interpretation Comments POC-GLUCOSE METER (BEAKER) (test code = 1538) 110 mg/dL 70-110 TESTED AT [facility] [address] [facility] [address] RAD, CHEST, 2 [id number] 11:22:00Reason for exam:->evaluate size of left pleural [...] Owens Verified Date/Time: 07/24/2018 11:22:41 Reading Location: [address] Ortho Consult Reading Room -GLUCOSE [id number] 08:04:00* Test Item Value Reference Range Interpretation Comments POC-GLUCOSE METER (BEAKER) (test code = 1538) 98 mg/dL 70-110 TESTED AT [facility] [address] [facility] [address] RAD, CHEST, 1 VIEW, NON [id number] 07:53:00Reason for exam:->Status post CV SurgeryShould this be performed at the bedside?->YesFINAL REPORT INDICATION: Status post CV Surgery TECHNIQUE: Chest radiograph, single view, portable technique. FINDINGS / IMPRESSION: Pulmonary venous congestion has improved and interval decrease in size of left pleural effusion. Heart shadow appears normal in size. No pneumothorax. Signed: Ba Reed MDReport Verified Date/Time: 07/24/2018 07:53:03 Reading Location: [facility] Radiology Reading Room [id number] 04:37:00* Test Item Value Reference Range Interpretation Comments PHOSPHORUS (BEAKER) (test code = 604) 3.1 mg/dL 2.3-4.7 [id number] 04:37:00* Test Item Value Reference Range Interpretation Comments MAGNESIUM (BEAKER) (test code = 627) 2.2 mg/dL 1.6-2.6 BASIC METABOLIC [id number] 04:37:00* Test Item Value Reference Range Interpretation [...] IS NOT APPLICABLE FOR DIALYSIS PATIENTS. POCT-GLUCOSE [id number] 21:57:00* Test Item Value Reference Range Interpretation Comments POC-GLUCOSE METER (BEAKER) (test code = 1538) 105 mg/dL 70-110 TESTED AT [facility] [address] [facility] [address] POCT-GLUCOSE [id number] 17:38:00* Test Item Value Reference Range Interpretation Comments POC-GLUCOSE METER (BEAKER) (test code = 1538) 101 mg/dL 70-110 TESTED AT [facility] [address] [facility] [address] POCT-GLUCOSE [id number] 13:41:00* Test Item Value Reference Range Interpretation Comments POC-GLUCOSE METER (BEAKER) (test code = 1538) 183 mg/dL 70-110 H TESTED AT [place] [id number] [facility] [address] [id number] 10:51:00* Test Item Value Reference Range Interpretation Comments POTASSIUM (BEAKER) (test code = 379) 5.0 meq/L 3.5-5.1 SURGICALLY OBTAINED CULTURE + GRAM [id number] 10:38:00* Test Item Value Reference Range Interpretation Comments CULTURE (BEAKER) (test code = 1095) No growth POCT-GLUCOSE [id number] 09:11:00* Test Item Value Reference Range Interpretation Comments POC-GLUCOSE METER (BEAKER) (test code = 1538) 100 mg/dL 70-110 TESTED AT [address] [address] RAD, CHEST, 1 VIEW, NON [id number] 08:57:00Reason for exam:->post-opShould this be performed at the bedside?->YesFINAL REPORT Chest dated 07/23/2018 COMPARISON: 07/22/2018 Clinical Information: post-op Comment: Heart is enlarged. Pulmonary vasculature is indistinct. Interstitial disease is seen bilaterally suggestive of pulmonary edema. There is small left pleural effusion. Signed: Carroll Hopper Verified Date/Time: 07/23/2018 08:57:06 Reading Location: [facility] Radiology Reading Room -GLUCOSE METER 2018-07-23 07:03:00* Test Item Value Reference Range Interpretation Comments POC-GLUCOSE METER (BEAKER) (test code = 1538) 147 mg/dL 70-110 H TESTED AT [address] [address] BASIC METABOLIC [id number] 05:29:00* Test Item Value Reference Range Interpretation [...] GFR IS NOT APPLICABLE FOR DIALYSIS PATIENTS. [id number] 05:18:00* Test Item Value Reference Range Interpretation Comments MAGNESIUM (BEAKER) (test code = 627) 2.2 mg/dL 1.6-2.6 CBC W/PLT COUNT & AUTO [id number] 05:09:00* Test Item Value Reference Range Interpretation [...] by IFA method.Test performed by IFA method.POCT-GLUCOSE [id number] 17:01:00* Test Item Value Reference Range Interpretation Comments POC-GLUCOSE METER (BEAKER) (test code = 1538) 142 mg/dL 70-110 H TESTED AT [facility] [address] [place] [address] HEPATITIS B [id number] 15:23:00* Test Item Value Reference Range Interpretation Comments HEPATITIS B CORE TOTAL ANTIBODY (BEAKER) (test code = 497) N onreactive Nonreactive HEPATITIS B SURFACE ANTIBODY (BEAKER) (test code = 647) < mIU/mL <8.0 HEPATITIS B SURFACE ANTIGEN (2) (BEAKER) (test code = 2585) Nonreactive Nonreactive HEPATITIS C [id number] 15:18:00* Test Item Value Reference Range Interpretation Comments HEPATITIS C ANTIBODY (BEAKER) (test code = 367) Nonreactive Nonrea ctive HIV-1 ANTIGEN WITH HIV-1/2 [id number] 15:18:00* Test Item Value Reference Range Interpretation Comments HIV-1 ANTIGEN WITH HIV 1\\T\\2 ANTIBODY (2) (BEAKER) (te st code = 2586) Nonreactive Nonreactive POTASSIUM-STAT [id number] 15:04:00* Test Item Value Reference Range Interpretation Comments POTASSIUM (BEAKER) (test code = 379) 4.7 meq/L 3.6-5.5 BASIC METABOLIC [id number] 14:38:00* Test Item Value Reference Range Interpretation [...] GFR IS NOT APPLICABLE FOR DIALYSIS PATIENTS. [id number] 14:31:00Medical Cytology Report Case: [id number] Authorizing Provider: Tito John, Collected: 07/20/2018 Ezekiel14 Ordering Location: [facility] CV Recovery Room 2 Received: 07/22/2018 0843 Pathologist: Julianne Abdullahi MD Specimen: Pericardial PERICARDIAL FLUID (CYTOSPINS): - NEGATIVE FOR MALIGNANCY Signing Pathologist Direct Phone Line: [phone] signed by Julianne Abdullahi MD on 07/22/2018 at 2:31 PM The cytospins show blood, histiocytes and some fatty tissue. Negative for malignancy. Please see surgical case [id number] effusion, CHFPERICARDIAL FLUID 25 mls bloody fluid; 4 cytospinsCollected: [id number]: [id number] [facility], Department of [facility]ology, [address] [place] [address], [facility], [address] [place] [address], [facility], [facility] of [facility], [address] [place] [address], EGKI-GLUCOSE [id number] 12:15:00* Test Item Value Reference Range Interpretation Comments POC-GLUCOSE METER (BEAKER) (test code = 1538) 156 mg/dL 70-110 H TESTED AT [place] [id number] RHEUMATOID FACTOR AB, REFLEX TO [id number] 11:28:00* Test Item Value Reference Range Interpretation Comments RHEUMATOID FACTOR (BEAKER) (test code = 573) Negative RAD, CHEST, 1 VIEW, NON [id number] 11:24:00Reason for exam:->pericardial windowFINAL REPORT Follow up [...] Impression:Increased pulmonary vascular congestion. Signed: Jacquie Pedraza Verified Date/Time: 07/22/2018 11:24:24 Reading Location: [facility] Radiology Reading Room TITIS B SURFACE [id number] 10:19:00* Test Item Value Reference Range Interpretation Comments HEPATITIS B SURFACE ANTIGEN (2) (BEAKER) (test code = 2585) Nonreactive Nonreactive CYTOLOGY [id number] 10:02:00* Test Item Value Reference Range Interpretation Comments CYTOLOGY RESULT POINTER (BEAKER) (test code = 2629) See Separate Re port POCT-GLUCOSE [id number] 06:51:00* Test Item Value Reference Range Interpretation Comments POC-GLUCOSE METER (BEAKER) (test code = 1538) 91 mg/dL 70-110 TESTED AT [facility] [address] [facility] [address] BASIC METABOLIC [id number] 04:08:00* Test Item Value Reference Range Interpretation [...] GFR IS NOT APPLICABLE FOR DIALYSIS PATIENTS. [id number] 04:00:00* Test Item Value Reference Range Interpretation Comments MAGNESIUM (BEAKER) (test code = 627) 2.1 mg/dL 1.6-2.6 CBC W/PLT COUNT & AUTO [id number] 03:55:00* Test Item Value Reference Range Interpretation [...] code = 2801) 1 % 0-1 POCT-GLUCOSE [id number] 22:28:00* Test Item Value Reference Range Interpretation Comments POC-GLUCOSE METER (BEAKER) (test code = 1538) 129 mg/dL 70-110 H TESTED AT [facility] [address] [facility] [address] BLOOD GAS, [id number] 17:04:00* Test Item Value Reference Range Interpretation [...] code = 1819) 32.0 % BLOOD GAS, [id number] 12:40:00* Test Item Value Reference Range Interpretation [...] (test code = 1819) 36.0 % POCT-GLUCOSE [id number] 08:11:00* Test Item Value Reference Range Interpretation Comments POC-GLUCOSE METER (BEAKER) (test code = 1538) 118 mg/dL 70-110 H TESTED AT [place] [address] [facility] [address] POCT-GLUCOSE [id number] 08:11:00* Test Item Value Reference Range Interpretation Comments POC-GLUCOSE METER (BEAKER) (test code = 1538) 107 mg/dL 70-110 TESTED AT [place] [address] [facility] [address] BLOOD GAS, [id number] 06:34:00* Test Item Value Reference Range Interpretation [...] 30.0 % RAD, CHEST, 1 VIEW, NON [id number] 05:20:00Reason for exam:->s/p pericardial effusion drainageShould this [...] surgical c hanges.Additional findings: None. Signed: Hunter Jurado MDReport Verified Date /Time: 07/21/2018 05:20:54 IC ACID, [id number] 04:52:00* Test Item Value Reference Range Interpretation Comments LACTATE BLOOD ARTERIAL (2) (BEAKER) (test code = 2874) 0.6 mmol/L 0.5-2.2 [id number] 03:42:00* Test Item Value Reference Range Interpretation Comments MAGNESIUM (BEAKER) (test code = 627) 2.1 mg/dL 1.6-2.6 BASIC METABOLIC [id number] 03:42:00* Test Item Value Reference Range Interpretation [...] DIALYSIS PATIENTS. CBC W/PLT COUNT & AUTO [id number] 03:36:00* Test Item Value Reference Range Interpretation [...] = 2801) 1 % 0-1 BLOOD GAS, [id number] 03:30:00* Test Item Value Reference Range Interpretation [...] (test code = 1819) 30.0 % POCT-GLUCOSE [id number] 01:56:00* Test Item Value Reference Range Interpretation Comments POC-GLUCOSE METER (BEAKER) (test code = 1538) 115 mg/dL 70-110 H TESTED AT [address] [address] BLOOD GAS, [id number] 20:45:00* Test Item Value Reference Range Interpretation [...] (test code = 1819) 45.0 % POCT-GLUCOSE [id number] 16:23:00* Test Item Value Reference Range Interpretation Comments POC-GLUCOSE METER (BEAKER) (test code = 1538) 153 mg/dL 70-110 H TESTED AT [address] [address] BLOOD GAS, [id number] 16:21:00* Test Item Value Reference Range Interpretation [...] (test code = 1819) 36.0 % GRAM [id number] 10:01:00* Test Item Value Reference Range Interpretation Comments GRAM STAIN RESULT (BEAKER) (test code = 1123) No WBCs GRAM STAIN RESULT (BEAKER) (test code = 15571) No organisms seen [id number] 09:53:00* Test Item Value Reference Range Interpretation Comments FIBRINOGEN LEVEL (BEAKER) (test code = 658) 330 mg/dl 225-434 [id number] 09:53:00* Test Item Value Reference Range Interpretation Comments PARTIAL THROMBOPLASTIN TIME (BEAKER) (test code = 760) 29.6 seconds 22.5-36.0 PROTHROMBIN TIME/[id number] 09:52:00* Test Item Value Reference Range Interpretation [...] 2.5-3.5 for patie nts wiht mechanical heart valves.[id number] 09:49:00* Test Item Value Reference Range Interpretation Comments PHOSPHORUS (BEAKER) (test code = 604) 3.6 mg/dL 2.3-4.7 [id number] 09:49:00* Test Item Value Reference Range Interpretation Comments MAGNESIUM (BEAKER) (test code = 627) 1.9 mg/dL 1.6-2.6 BASIC METABOLIC [id number] 09:49:00* Test Item Value Reference Range Interpretation [...] NOT APPLICABLE FOR DIALYSIS PATIENTS. LACTIC ACID, [id number] 09:46:00* Test Item Value Reference Range Interpretation Comments LACTATE BLOOD ARTERIAL (2) (BEAKER) (test code = 2874) 0.6 mmol/L 0.5-2.2 RAD, CHEST, 1 VIEW, NON [id number] 09:38:00Reason for exam:->s/p pericardial windowShould this be [...] MDReport Verified Date/Time: 07/20/2018 09:38:42 Reading Location: [facility] C0[facility] Neuro Reading Room E lectronically signed by: SHERIE HURLEY on 07/20/2018 09:38 AM CBC W/PLT COUNT & AUTO [id number] 09:25:00* Test Item Value Reference Range Interpretation [...] = 2801) 1 % 0-1 SODIUM NA-STAT [id number] 09:21:00* Test Item Value Reference Range Interpretation Comments SODIUM (BEAKER) (test code = 381) 142 meq/L 135-148 POTASSIUM-STAT [id number] 09:21:00* Test Item Value Reference Range Interpretation Comments POTASSIUM (BEAKER) (test code = 379) 3.5 meq/L 3.6-5.5 L BLOOD GAS, [id number] 09:21:00* Test Item Value Reference Range Interpretation [...] (test code = 1819) 36.0 % GLUCOSE-STAT [id number] 09:21:00* Test Item Value Reference Range Interpretation Comments GLUCOSE RANDOM (BEAKER) (test code = 652) 125 mg/dL 70-110 H COMPLEMENT COMPONENT [id number] 07:00:00* Test Item Value Reference Range Interpretation Comments C4 COMPLEMENT (BEAKER) (test code = 394) 31 mg/dL 15-57 COMPLEMENT COMPONENT [id number] 07:00:00* Test Item Value Reference Range Interpretation Comments C3 COMPLEMENT (BEAKER) (test code = 393) 109 mg/dL 82-193 CREATININE, RANDOM [id number] 06:30:00* Test Item Value Reference Range Interpretation Comments CREATININE URINE (BEAKER) (test code = 375) 80.6 mg/dL Reference Range: No NormalsPROTEIN, RANDOM [id number] 06:30:00* Test Item Value Reference Range Interpretation Comments PROTEIN, URINE (BEAKER) (test code = 1569) 57 mg/dL 0-14 H PROTHROMBIN TIME/[id number] 03:07:00* Test Item Value Reference Range Interpretation [...] 2.5-3.5 for patie nts wiht mechanical heart valves.[id number] 03:07:00* Test Item Value Reference Range Interpretation Comments PARTIAL THROMBOPLASTIN TIME (BEAKER) (test code = 760) 31.1 seconds 22.5-36.0 [id number] 02:43:00* Test Item Value Reference Range Interpretation Comments MAGNESIUM (BEAKER) (test code = 627) 2.0 mg/dL 1.6-2.6 BASIC METABOLIC [id number] 02:43:00* Test Item Value Reference Range Interpretation [...] IS NOT APPLICABLE FOR DIALYSIS PATIENTS. C-REACTIVE [id number] 02:43:00* Test Item Value Reference Range Interpretation Comments C-REACTIVE PROTEIN (BEAKER) (test code = 676) 2.54 mg/dL 0.00-0.5 0 H CBC W/PLT COUNT & AUTO [id number] 02:20:00* Test Item Value Reference Range Interpretation [...] code = 2801) 1 % 0-1 POCT-GLUCOSE [id number] 00:57:00* Test Item Value Reference Range Interpretation Comments POC-GLUCOSE METER (BEAKER) (test code = 1538) 103 mg/dL 70-110 TESTED AT [address] [address] POCT-GLUCOSE [id number] 18:20:00* Test Item Value Reference Range Interpretation Comments POC-GLUCOSE METER (BEAKER) (test code = 1538) 134 mg/dL 70-110 H TESTED AT [facility] [address] [facility] [address] CREATININE, RANDOM [id number] 15:20:00* Test Item Value Reference Range Interpretation Comments CREATININE URINE (BEAKER) (test code = 375) 34.0 mg/dL Reference Range: No NormalsPROTEIN, RANDOM [id number] 15:20:00* Test Item Value Reference Range Interpretation Comments PROTEIN, URINE (BEAKER) (test code = 1569) 32 mg/dL 0-14 H PT/[id number] 15:13:00* Test Item Value Reference Range Interpretation [...] for patie nts wiht mechanical heart valves.POCT-GLUCOSE [id number] 13:05:00* Test Item Value Reference Range Interpretation Comments POC-GLUCOSE METER (BEAKER) (test code = 1538) 117 mg/dL 70-110 H TESTED AT [place] [address] [facility] [address] HEMOGLOBIN [id number] 10:17:00* Test Item Value Reference Range Interpretation Comments HEMOGLOBIN A1C (BEAKER) (test code = 368) 5.4 % 4.3-6.1 POCT-GLUCOSE [id number] 08:15:00* Test Item Value Reference Range Interpretation Comments POC-GLUCOSE METER (BEAKER) (test code = 1538) 104 mg/dL 70-110 TESTED AT [facility] [address] [facility] [address] [id number] 04:11:00* Test Item Value Reference Range Interpretation Comments FERRITIN (BEAKER) (test code = 361) 72 ng/mL 5-275 TSH/FREE T4 IF [id number] 04:11:00* Test Item Value Reference Range Interpretation Comments THYROID STIMULATING HORMONE (BEAKER) (test code = 772) 1.14 uIU/mL 0.35-4.94 VITAMIN B12 AND [id number] 04:11:00* Test Item Value Reference Range Interpretation [...] = 2590) 9 % 20-5 5 L [id number] 03:20:00* Test Item Value Reference Range Interpretation Comments PHOSPHORUS (BEAKER) (test code = 604) 3.4 mg/dL 2.3-4.7 [id number] 03:20:00* Test Item Value Reference Range Interpretation Comments MAGNESIUM (BEAKER) (test code = 627) 2.2 mg/dL 1.6-2.6 BASIC METABOLIC [id number] 03:20:00* Test Item Value Reference Range Interpretation [...] IS NOT APPLICABLE FOR DIALYSIS PATIENTS. LIPID [id number] 03:20:00* Test Item Value Reference Range Interpretation [...] High 160-189 Very High >=190 HEPATIC FUNCTION [id number] 03:20:00* Test Item Value Reference Range Interpretation [...] U/L 6-55 CBC W/PLT COUNT & AUTO [id number] 02:57:00* Test Item Value Reference Range Interpretation [...] code = 2801) 1 % 0-1 POCT-GLUCOSE [id number] 22:36:00* Test Item Value Reference Range Interpretation Comments POC-GLUCOSE METER (BEAKER) (test code = 1538) 137 mg/dL 70-110 H TESTED AT [facility] [address] [facility] [address] CREATININE, RANDOM [id number] 19:27:00* Test Item Value Reference Range Interpretation Comments CREATININE URINE (BEAKER) (test code = 375) 7.4 mg/dL Reference Range: No NormalsPROTEIN, RANDOM [id number] 19:27:00* Test Item Value Reference Range Interpretation Comments PROTEIN, URINE (BEAKER) (test code = 1569) 43 mg/dL 0-14 H POCT-GLUCOSE [id number] 16:50:00* Test Item Value Reference Range Interpretation Comments POC-GLUCOSE METER (BEAKER) (test code = 1538) 124 mg/dL 70-110 H TESTED AT [facility] [address] [facility] [address] B-TYPE NATRIURETIC FACTOR (BNP)2018-07-18 14:00:00* Test Item Value Reference Range Interpretation Comments B-TYPE NATRIURETIC PEPTIDE (BEAKER) (test code = 700) 291 pg/mL 0-100 H BASIC METABOLIC [id number] 13:57:00* Test Item Value Reference Range Interpretation [...] 380) 14 U/L 29-20 0 L TROPONIN [id number] 13:56:00* Test Item Value Reference Range Interpretation [...] and per sistent tachyarrhythmia.URINALYSIS W/ REFLEX URINE [id number] 13:51:00* Test Item Value Reference Range Interpretation [...] 1 /HPF SOURCE(BEAKER) (test code = 2795) [id number] 13:48:00* Test Item Value Reference Range Interpretation Comments MAGNESIUM (BEAKER) (test code = 627) 1.9 mg/dL 1.6-2.6 CBC W/PLT COUNT & AUTO [id number] 13:32:00* Test Item Value Reference Range Interpretation [...] % 0-1 RAD, CHEST, 1 VIEW, NON [id number] 13:28:00Reason for exam:->SHORTNESS OF BREATHFINAL REPORT INDICATION: [...] MDReport Verified Date/Time: 07/18/2018 13:28:20 Reading Location: [address] Consult Reading Room Bedside Glucose 2017-09-28 16:29:00* Test Item Value Reference Range Interpretation Comments Bedside Glucose (test code = 66390-5) 129 70-120 H Meter ID: [id number]. [facility] HospitalCyclic Citrullinated Peptide IgG [id number] 11:27:00* Test Item Value Reference Range Interpretation Comments Cyclic Citrullinated Peptide IgG Ab (test code = 24027-8) 4 Reference Range: 0 - 19 Units Negative <20 Weak positive 20 - 39 Moderate positive 40 - 59 Strong positive >59Testing performed by:[facility] [address] [place] [address]-1594635-606-6311Zko. Abhi Hernandez [facility] HospitalRheumatoid Dxvwlv2080-11-69 11:27:00* Test Item Value Reference Range Interpretation Comments Rheumatoid Factor (test code = 87517-0) -10.0 < 14 Testing performed by:[facility] [address] [place], [place] [phone] [id number]: Andrez Gallegos [facility] HospitalCHEST SINGLE (PORTABLE)2017-09-28 06:43:00 [facility] [address] [place] [address] Patient Name: ANGELO BARTON MR #: [id number] : 1935 Age/Sex: 82/F Req #: [id number] Adm Physician: JIMMY MARIANO MD Ordered by: VIVIEN CHINCHILLA MD Report #: [id number] Location: MED/SURG2 Room/Bed: [facility] Procedure: [id number] DX/CHEST SINGLE (PORTABLE) Exam Date: 09/28/17 Exam Time: 604 REPORT STATUS: Signed EXAM: CHEST SINGLE (PORTABLE), [...] 6:44 AM Dictated By: CRYSTAL RANDHAWA MD 3 Transcribed By: DEXTER on 09/28/17643 COPY T O: VIVIEN CHINCHILLA MD, ABI Sodium [id number] 05:41:00* Test Item Value Reference Range Interpretation Comments Sodium Level (test code = 2951-2) 142 136-145 [facility] HospitalPotassium Mhfhi1339-21-07 05:41:00* Test Item Value Reference Range Interpretation Comments Potassium Level (test code = 2823-3) 3.9 3.5-5.1 [facility] HospitalChloride Gyqrv3410-45-31 05:41:00* Test Item Value Reference Range Interpretation Comments Chloride Level (test code = 2075-0) 103 98-107 [facility] HospitalCarbon Dioxide Apgzg6632-37-41 05:41:00* Test Item Value Reference Range Interpretation Comments Carbon Dioxide Level (test code = 2028-9) 28 22-29 [facility] HospitalAnion [id number] 05:41:00* Test Item Value Reference Range Interpretation Comments Anion Gap (test code = 61031-9) 14.9 8-16 [facility] HospitalBlood Urea Mqdaywrl8554-50-26 05:41:00* Test Item Value Reference Range Interpretation Comments Blood Urea Nitrogen (test code = 3094-0) 36 7-[address] [facility] HospitalCreatinine2018-08-10 05:41:00* Test Item Value Reference Range Interpretation Comments Creatinine (test code = 2160-0) 1.15 0.57-1.[address] [facility] HospitalBUN/Creatinine Mkxme6091-59-02 05:41:00* Test Item Value Reference Range Interpretation Comments BUN/Creatinine Ratio (test code = 3097-3) 31 6-[address] [facility] HospitalEstimat Glomerular Filtration Rate 2017-09-28 05:41:00* Test Item Value Reference Range Interpretation Comments Estimat Glomerular Filtration Rate (test code = 81461-9) 45 >60 L Ranges were taken from the National Kidney Disease Education Program and the [facility] Foundation literature.Reference ranges:60 or greater: Dxoull66-16 ( for 3 consecutive months): Chronic kidney disease 15 or less: Kidney failureSt. Luke's Health – Memorial Livingston HospitalGlucose Sfiss2211-87-68 05:41:00* Test Item Value Reference Range Interpretation Comments Glucose Level (test code = FVG9732) 50 74-118 LL Results called to CARMINA ORTEGA RN at 0541 on 09/28/17 by Kacy Aguilera. RB OK.[facility] HospitalCalcium Jzufv3788-76-63 05:41:00* Test Item Value Reference Range Interpretation Comments Calcium Level (test code = 37209-7) 8.6 8.4-10.2 [facility] HospitalMagnesium Rznxa7413-75-54 05:41:00* Test Item Value Reference Range Interpretation Comments Magnesium Level (test code = 52316-6) 1.8 1.3-2.1 [facility] HospitalWhite Blood Lfivz3417-24-48 05:22:00* Test Item Value Reference Range Interpretation Comments White Blood Count (test code = 6690-2) 10.31 4.8-10.8 [facility] HospitalRed Blood Bsgoy3901-46-38 05:22:00* Test Item Value Reference Range Interpretation Comments Red Blood Count (test code = 789-8) 3.66 3.6-5.1 [facility] HospitalHemoglobin2018-08-10 05:22:00* Test Item Value Reference Range Interpretation Comments Hemoglobin (test code = 78182-5) 10.1 12.0-16.[address] [facility] HospitalHematocrit2018-08-10 05:22:00* Test Item Value Reference Range Interpretation Comments Hematocrit (test code = 4544-3) 32.6 34.2-44.[address] [facility] HospitalMean Corpuscular Dkhjfv9743-59-71 05:22:00* Test Item Value Reference Range Interpretation Comments Mean Corpuscular Volume (test code = 787-2) 89.1 81-99 [facility] HospitalMean Corpuscular Nwovbuqqdx2856-74-10 05:22:00* Test Item Value Reference Range Interpretation Comments Mean Corpuscular Hemoglobin (test code = 785-6) 27.6 28-[address] [facility] HospitalMean Corpuscular Hemoglobin Concent 2017-09-28 05:22:00* Test Item Value Reference Range Interpretation Comments Mean Corpuscular Hemoglobin Concent (test code = 786-4) 31.0 31-35 [facility] HospitalRed Cell Distribution [id number] 05:22:00* Test Item Value Reference Range Interpretation Comments Red Cell Distribution Width (test code = 27921-8) 15.4 11.7 -14.[address] [facility] HospitalPlatelet Eohdd5415-38-93 05:22:00* Test Item Value Reference Range Interpretation Comments Platelet Count (test code = 777-3) 173 140-360 [facility] HospitalNeutrophils (%) (Auto)2017-09-28 05:22:00 * Test Item Value Reference Range Interpretation Comments Neutrophils (%) (Auto) (test code = 19236-0) 71.0 38.7-80.0 [facility] HospitalLymphocytes (%) (Auto)2017-09-28 05:22:00 * Test Item Value Reference Range Interpretation Comments Lymphocytes (%) (Auto) (test code = 736-9) 15.8 18.0-39.[address] [facility] [facility]ocytes (%) (Auto)2017-09-28 05:22:00* Test Item Value Reference Range Interpretation Comments Monocytes (%) (Auto) (test code = 5905-5) 8.9 4.4-11.3 [facility] HospitalEosinophils (%) (Auto)2017-09-28 05:22:00 * Test Item Value Reference Range Interpretation Comments Eosinophils (%) (Auto) (test code = 713-8) 3.2 0.0-6.0 [facility] HospitalBasophils (%) (Auto)2017-09-28 05:22:00* Test Item Value Reference Range Interpretation Comments Basophils (%) (Auto) (test code = 706-2) 0.3 0.0-1.0 [facility] HospitalIM GRANULOCYTES %2017-09-28 05:22:00* Test Item Value Reference Range Interpretation Comments IM GRANULOCYTES % (test code = IM GRANULOCYTES %) 0.8 0.0- 1.0 [facility] HospitalNeutrophils # (Auto)2017-09-28 05:22:00* Test Item Value Reference Range Interpretation Comments Neutrophils # (Auto) (test code = 751-8) 7.3 2.1-6.[address] [facility] HospitalLymphocytes # (Auto)2017-09-28 05:22:00* Test Item Value Reference Range Interpretation Comments Lymphocytes # (Auto) (test code = 39377-4) 1.6 1.0-3.2 [facility] HospitalMonocytes # (Auto)2017-09-28 05:22:00* Test Item Value Reference Range Interpretation Comments Monocytes # (Auto) (test code = 742-7) 0.9 0.2-0.[address] [facility] HospitalEosinophils # (Auto)2017-09-28 05:22:00* Test Item Value Reference Range Interpretation Comments Eosinophils # (Auto) (test code = 711-2) 0.3 0.0-0.4 [facility] HospitalBasophils # (Auto)2017-09-28 05:22:00* Test Item Value Reference Range Interpretation Comments Basophils # (Auto) (test code = 704-7) 0.0 0.0-0.1 [facility] HospitalAbsolute Immature Granulocyte (auto 2017-09-28 05:22:00* Test Item Value Reference Range Interpretation Comments Absolute Immature Granulocyte (auto (maureen t code = Absolute Immature Granulocyte (auto) 0.08 0-0.1 [facility] HospitalCT CHEST [id number] 16:02:00 [place] [address] Patient Name: ANGELO BARTON MR #: [id number] : 1935 Age/Sex: 82/F Req #: [id number] [facility] Physician: JIMMY MARIANO MD Ordered by: VIVIEN CHINCHILLA MD Report #: [id number] Loca tion: MED/SURG2 Room/Bed: 210 Procedure: [id number] CT/CT CHEST WO Exam Date: 09/26/17 Exam [...] 09/26/17 1602 COPY TO: VIVIEN CHINCHILLA MD, [facility] Anti-Nuclear Antibody Wtjuaa8082-67-55 13:18:00* Test Item Value Reference Range Interpretation Comments Anti-Nuclear Antibody Screen (test code = 5048-4) Negative . Negative <1:80 Borderline 1:80 Positive > 1:80Performed at: [facility] [address] [id number] 3Lab Director: Andrez Gallegos MD, Phone: [phone] [facility]ugervilleD-Dimer Quantitative (PE/DVT)2017-09-26 11:45:00* Test Item Value Reference Range Interpretation Comments D-Dimer Quantitative (PE/DVT) (test code = 03918-1) 359 0- 400 As with all in vitro diagnostic tests, the test results should be interpreted by the physician in conjunction with clinical findings and other test results.Test results are reported in NEW D-dimer units(ug/mLFEU).CHI [facility]ervilleCHEST SINGLE (PORTABLE)2017-09-26 06:41:00 [place] [address] Patient Name: ANGELO BARTON MR #: [id number] : 1935 Age/Sex: 82/F Req #: [id number] Adm Physician: JIMMY MARIANO MD Ordered by: VIVIEN CHINCHILLA MD Report #: [id number] Location: MED/SURG2 Room/Bed: 210 Procedure: [id number] DX/CHEST SINGLE (PORTABLE) Exam Date: Exam Time: [...] on 09/26/17642 COPY TO: VIVIEN CHINCHILLA MD, [facility] Total Epkvfashr3076-62-68 06:18:00* Test Item Value Reference Range Interpretation Comments Total Bilirubin (test code = 1975-2) 0.9 0.2-1.2 [facility] HospitalAspartate Amino Transf (AST/SGOT) 2017-09-26 06:18:00* Test Item Value Reference Range Interpretation Comments Aspartate Amino Transf (AST/SGOT) (test code = Aspartate Amino Transf (AST/SGOT)) 9 5-34 [facility] HospitalAlanine Aminotransferase (ALT/SGPT) 2017-09-26 06:18:00* Test Item Value Reference Range Interpretation Comments Alanine Aminotransferase (ALT/SGPT) (test code = 1742-6) 7 0-55 [facility] HospitalTotal Jhtipzx5339-82-22 06:18:00* Test Item Value Reference Range Interpretation Comments Total Protein (test code = 2885-2) 6.3 6.5-8.[address] [facility] HospitalAlbumin2018-08-08 06:18:00* Test Item Value Reference Range Interpretation Comments Albumin (test code = 1751-7) 3.7 3.5-5.0 [facility] HospitalGlobulin2018-08-08 06:18:00* Test Item Value Reference Range Interpretation Comments Globulin (test code = 47335-0) 2.6 2.3-3.5 [facility] HospitalAlbumin/Globulin [id number] 06:18:00 * Test Item Value Reference Range Interpretation Comments Albumin/Globulin Ratio (test code = 1759-0) 1.4 0.8-2.0 [facility] HospitalAlkaline Cvraaweqseo4145-57-51 06:18:00* Test Item Value Reference Range Interpretation Comments Alkaline Phosphatase (test code = 6768-6) 58 40-150 [facility] HospitalErythrocyte Sedimentation Kwom5944-61-87 12:10:00* Test Item Value Reference Range Interpretation Comments Erythrocyte Sedimentation Rate (test code = 4537-7) 8 0- 20 [facility] HospitalCreatine Kinase [id number] 11:49:00* Test Item Value Reference Range Interpretation Comments Creatine Kinase MB (test code = 80514-1) 0.80 0-5.0 [facility] HospitalTroponin [id number] 11:49:00* Test Item Value Reference Range Interpretation Comments Troponin I (test code = YXV0849) 0.006 0-0.300 [facility] HospitalCreatine Akwogz0491-83-87 11:43:00* Test Item Value Reference Range Interpretation Comments Creatine Kinase (test code = 2157-6) 9 29-[address] [facility] HospitalFree Thyroxine Dufqm2176-66-49 11:40:00* Test Item Value Reference Range Interpretation Comments Free Thyroxine Index (test code = 39056-2) 3.0666 1.4-3.8 [facility] HospitalThyroxine (T4)2017-09-25 11:40:00* Test Item Value Reference Range Interpretation Comments Thyroxine (T4) (test code = 3026-2) 10.42 4.5-10.9 Our current method for Total T4 is not recommended for use as the only marker fo r evaluating patients for thyroid disorders.[facility] HospitalTriiodothyronine (T3) Vmdzbd8537-41-62 11:40:00* Test Item Value Reference Range Interpretation Comments Triiodothyronine (T3) Uptake (test code = 3050-2) 29.43 22.5 -37.0 [facility] HospitalThyroid Stimulating Hormone (TSH) 2017-09-25 11:40:00* Test Item Value Reference Range Interpretation Comments Thyroid Stimulating Hormone (TSH) (test code = 22235-9) 0.661 0.350-4.940 [facility] HospitalECHO COMPLETE (ECHOCARDIOGRAM)2017-09-25 10:33:00 [facility] [address] [place] [address] Patient Name : ANGELO BARTON MR #: [id number] : 1935 Age/Sex: 82/F Adm Physician : JIMMY MARIANO MD Admit Date : 09/25/17 Location : MED/SURG2 Room/Bed : 210 REPORT: Cardiology Repor t DATE OF STUDY: [...] estimated at 41 mmHg. 1 0:48 Job#: [id number] RI cc: JIMMY MARIANO M.D. Signature Date Dictated By: ARUNA MORRELL MD Transcribed By: SMEDS on 09/25/17 < Electronically signed by ARUNA MORRELL MD><<Signature on File>>09/27/17 1104 COPY TO: CHEST SINGLE (PORTABLE)2017-09-25 07:19:00 [place] [address] Patient Name: ANGELO BARTON MR #: [id number] : 1935 Age/Sex: 82/F Req #: [id number] [facility] Physician: JIMMY MARIANO MD Ordered by: VIVIEN CHINCHILLA MD Report #: [id number] Location: [facility] Room/Bed: [place] [address] Procedure: [id number] DX/CHEST SINGLE (PORTABLE) Exam Date: 09/25/17 Exam [...] Dre Alexander M.D. on 09/25/2017 at 7:19 Yazi obey approved by: Dre Alexander M.D. on 09/25/2017 at 7:19 Dictate d By: DRE ALEXANDER MD 0 719 Transcribed By: GABRIELLE on 09/25/17 0781 COPY TO: VIVIEN CHINCHILLA MD, ABIM Urine [id number] 03:10:00* Test Item Value Reference Range Interpretation Comments Urine WBC (test code = 5821-4) 0-5 0-5 [facility] HospitalUrine [id number] 03:10:00* Test Item Value Reference Range Interpretation Comments Urine RBC (test code = 08289-1) 0-5 0-5 [facility] HospitalUrine Feuehtjg0591-46-46 03:10:00* Test Item Value Reference Range Interpretation Comments Urine Bacteria (test code = 13149-4) RARE NONE [facility] HospitalUrine Epithelial Prkjx0722-82-42 03:10:00 * Test Item Value Reference Range Interpretation Comments Urine Epithelial Cells (test code = 30873-8) RARE NONE [facility] HospitalUrine Ebuhh2035-67-63 02:58:00* Test Item Value Reference Range Interpretation Comments Urine Color (test code = 5778-6) YELLOW YELLOW [facility] HospitalUrine Rqnlyvm7593-60-58 02:58:00* Test Item Value Reference Range Interpretation Comments Urine Clarity (test code = 06547-3) CLEAR CLEAR [facility] HospitalUrine Specific Asiatrn5234-16-18 02:58:00 * Test Item Value Reference Range Interpretation Comments Urine Specific [place] (test code = 5811-5) 1.020 1.010-1.[address] [facility] HospitalUrine uR8464-68-01 02:58:00* Test Item Value Reference Range Interpretation Comments Urine pH (test code = 61083-8) 6 5-7 [facility] HospitalUrine Leukocyte Wwdydxdt6670-87-02 02:58:00* Test Item Value Reference Range Interpretation Comments Urine Leukocyte Esterase (test code = 5799-2) NEGATIVE NEGATIVE [facility] HospitalUrine Fjydrjr0707-99-60 02:58:00* Test Item Value Reference Range Interpretation Comments Urine Nitrite (test code = 94309-5) NEGATIVE NEGATIVE [facility] HospitalUrine Wayinam6035-78-67 02:58:00* Test Item Value Reference Range Interpretation Comments Urine Protein (test code = 5804-0) 2+ NEGATIVE H [facility] HospitalUrine Glucose (UA)2017-09-25 02:58:00* Test Item Value Reference Range Interpretation Comments Urine Glucose (UA) (test code = 2349-9) NEGATIVE NEGATIVE [facility] HospitalUrine Qdubwvx6962-28-27 02:58:00* Test Item Value Reference Range Interpretation Comments Urine Ketones (test code = 15392-6) NEGATIVE NEGATIVE [facility] HospitalUrine Vtfytwbpketw9189-97-96 02:58:00* Test Item Value Reference Range Interpretation Comments Urine Urobilinogen (test code = 38004-4) 0.2 0.2-1 [facility] HospitalUrine Caujurufu4961-65-02 02:58:00* Test Item Value Reference Range Interpretation Comments Urine Bilirubin (test code = 1978-6) NEGATIVE NEGATIVE [facility] HospitalUrine Teukl7208-41-48 02:58:00* Test Item Value Reference Range Interpretation Comments Urine Blood (test code = 59192-6) TRACE NEGATIVE H [facility] HospitalCHEST SINGLE (PORTABLE)2017-09-24 23:47:00 [facility] [address] [place] [address] Patient Name: ANGELO BARTON MR #: [id number] : 1935 Age/Sex: 82/F Req #: [id number] Adm Physician: Ordered by: BONY MIXON MD Report #: [id number] Location: Room/Bed: Procedure: [id number] DX/CHEST SINGLE (PORTAB LE) Exam Date: Exam [...] Mable d By: CRYSTAL RANDHAWA MD on 09/24/172347 Transcribed By: DEXTER on 09/24/17 234 8 COPY TO: BONY MIXON MD B-Type Natriuretic Peptide 2017-09-24 23:31:00* Test Item Value Reference Range Interpretation Comments B-Type Natriuretic Peptide (test code = 81647-4) 149.3 0-[address] [facility] HospitalProthrombin Gaqk8479-30-75 22:58:00* Test Item Value Reference Range Interpretation Comments Prothrombin Time (test code = 5902-2) 13.8 11.9-14.5 [facility] HospitalProthromb Time International Ratio 2017-09-24 22:58:00* Test Item Value Reference Range Interpretation Comments Prothromb Time International Ratio (test code = 6301-6) 1.15 Oral Anticoagulant Therapy INR Values:1. Low Intensity Therapy 1.5 - 2.02 . Moderate Intensity Therapy 2.0 - 3.03. High Intensity Therapy(1) 2.5 - 3. 54. High Intensity Therapy(2) 3.0 - 4.05. Panic Value INR > 5.0 [facility] HospitalActivated Partial Thromboplast Time 2017-09-24 22:58:00* Test Item Value Reference Range Interpretation Comments Activated Partial Thromboplast Time (test code = 97769-0) 27.9 23.8-35.5 [facility]
[2020-01-01 21:47] VITALS: BP 153/68
[2020-01-01] MEDS ORDERED: HYDRALAZINE HCL 20 MG/ML VIAL IV PRN (22:00)
[2020-01-01 22:30] VITALS: BP 153/68
--- NOTE | 2020-01-01 22:35 | NUR ---
Patient received via stretcher from ER. AAO x 2. Patient had no complaints of pain. Respirations even and non-labored. Patient oriented to room, call light, visiting policy and plan of care. Fall interventions implemented. Patient instructed to call for assistance when needed. Call light within reach.
[2020-01-01 23:00] VITALS: BP 153/68
[2020-01-01] MEDS: ACETAMINOPHEN 325 MG TAB PO PRN (23:30)
[2020-01-02] VITALS (7 sets, daily range): BP systolic 125–167; BP diastolic 57–76
[2020-01-02 05:03] LABS: BASOPHILS # (AUTO) 0.1 (0.0-0.1); BASOPHILS % 0.7 % (0.0-1.0); EOSINOPHILS # (AUTO) 0.3 (0.0-0.4); EOSINOPHILS % 3.6 % (0.0-6.0); HEMATOCRIT 35.7 % (34.2-44.1); HEMOGLOBIN 10.9 g/dL (12.0-16.0); LYMPHOCYTES # (AUTO) 1.3 (1.0-3.2); LYMPHOCYTES % 17.7 % (18.0-39.1); MEAN CORPUSCULAR HEMOGLOBIN 26.1 pg (28-32); MEAN CORPUSCULAR HGB CONC 30.5 g/dL (31-35); MEAN CORPUSCULAR VOLUME 85.4 fL (81-99); MONOCYTES # (AUTO) 0.7 (0.2-0.8); MONOCYTES % 10.3 % (4.4-11.3); NEUTROPHILS # (AUTO) 4.7 (2.1-6.9); NEUTROPHILS % 65.3 % (38.7-80.0); PLATELET COUNT 101 x10e3/uL (140-360); RED BLOOD COUNT 4.18 x10e6/uL (3.6-5.1); RED CELL DISTRIBUTION WIDTH 20.3 % (11.7-14.4)
[2020-01-02 05:29] LABS: ANION GAP 10.9 mmol/L (8-16); CREATININE, SERUM 1.01 mg/dL (0.57-1.11); POTASSIUM 3.9 mmol/L (3.5-5.1)
[2020-01-02] MEDS: LEVOTHYROXINE SODIUM 100 MCG TAB PO SCH (06:00)
--- NOTE | 2020-01-02 06:50 | NUR ---
Dr. Alvarez notified of patient's rectal temperature of 92F. ordered "bear hugger'"for patient.
--- NOTE | 2020-01-02 07:00 | NUR ---
Patient resting comfortably. Walking rounds done. Shift report given to oncoming nurse regarding patient's status.
--- NOTE | 2020-01-02 07:00 | NUR ---
RCD PT AT BED PT IS ALERT AND ORIENTED IV PATENT BED LOW AND LOCKED CALL LIGHT IN REACH
[2020-01-02] MEDS: HYDRALAZINE HCL 25 MG TAB PO SCH ×3 (09:00→22:08)
[2020-01-02] MEDS ORDERED: DEXTROSE ISO OSM IV SCH (09:00)
[2020-01-02] MEDS ORDERED: CEFEPIME HCL IV SCH (09:00)
[2020-01-02] MEDS: GLIMEPIRIDE 2 MG TAB PO SCH ×2 (09:00→16:54)
[2020-01-02] MEDS: FUROSEMIDE INJ 10 MG/ML 4 ML VIAL IV SCH ×2 (09:00→22:08)
[2020-01-02] MEDS: AMLODIPINE BESYLATE 10 MG TAB PO SCH (09:00)
[2020-01-02] MEDS ORDERED: [UNRECOGNIZED DRUG - OTHER] IV SCH (09:00)
[2020-01-02] MEDS: CEFEPIME 1GM/NS 0.9% 50 ML 50 ML IV SCH ×2 (09:00→22:08)
[2020-01-02] MEDS: BENAZEPRIL HCL 10 MG TAB PO SCH (09:00)
[2020-01-02] MEDS: ASPIRIN 81 MG CHEW TAB PO SCH (09:00)
[2020-01-02] MEDS ORDERED: SODIUM CHLORIDE 0.9% 250ML 250 ML ONE (09:12)
--- NOTE | 2020-01-02 10:32 | NUR ---
OBS DAY 1. DX: ATAXIA, SLURRED SPEECH, BLURRY VISION SENT TO R1 FOR LOC DETERMINATION
--- NOTE | 2020-01-02 15:27 | Diagnostic Imaging Report ---
Examination: MRI BRAIN WO CONTRAST History: Stroke Comparison studies: Head CT performed January 01, 2020. Technique: Sagittal T2; axial DWI, FLAIR, GRE or SWI, T1, Coronal FLAIR. Intravenous contrast: None Findings: Scalp: No abnormal signal. No masses. Bone marrow: Normal in signal intensity. Brain volume: Mild generalized volume loss. Ventricles: No hydrocephalus. Extra-axial spaces: No abnormalities. Parenchyma: Small chronic cortical based infarcts are again demonstrated in the left superior and middle frontal gyri as well as the left precentral gyrus. There are patchy and punctate areas of T2/FLAIR hyperintensity in the periventricular and subcortical white matter, nonspecific. No masses, hemorrhage, or acute vascular insults. Suprasellar and sellar region: No abnormalities. Craniocervical junction: No abnormalities. The foramen magnum is patent. No Chiari malformations. Vessels: Normal flow-voids in the arteries and sinuses. Additional findings:None. IMPRESSION: No acute intracranial abnormalities. Specifically, no acute infarct. Small chronic cortical infarcts in the left frontal lobe and precentral gyrus. Chronic microvascular ischemic change. Signed by: Dr. Gertrude Murphy M.D. on 01/02/2020 3:24 PM
[2020-01-02] MEDS: ACETAMINOPHEN 325 MG TAB PO PRN (15:28)
[2020-01-02] MEDS: INSULIN REGULAR, HUMAN 100 UNIT/1 ML 3ML VIAL SQ SCH ×2 (16:30→21:00)
[2020-01-02] MEDS: ENOXAPARIN SOD INJ 40 MG/0.4 ML SYR SC SCH (16:54)
--- NOTE | 2020-01-02 17:55 | NUR ---
PT WENT TO PROCEDURE IN SAFE CONDITION
--- NOTE | 2020-01-02 18:23 | History and Physical ---
PRIMARY CARE PHYSICIAN: Dr. Yoan Long at [facility]. CHIEF COMPLAINT: Slurred speech, generalized weakness. HISTORY OF PRESENT ILLNESS: This is an 84-year-old female with past medical history of hypertension, high cholesterol, congestive heart failure, hypothyroidism, history of CAD, ischemic CVA with right-sided weakness, and diabetes, presented to the ER with complaints of slurred speech, and right eye vision changes. She was recently discharged home after being treated for UTI with IV antibiotics. Per family, she has not improved since she got home. She continued to slur her word and continued to worsen for the past 2 days. She denies any fever, chills, nausea, vomiting. She reports abdominal pain, no constipation. There is no focal neuro deficits compared to last week. CT brain in the ER was negative for acute process. PAST MEDICAL HISTORY: 1. Hypertension. 2. High cholesterol. 3. Congestive heart failure, unspecified type. 4. Hypothyroidism. 5. Ischemic CVA with right-sided weakness. 6. Left-sided vision loss. 7. Diabetes. PAST SURGICAL HISTORY: None. FAMILY MEDICAL HISTORY: Reports heart disease. SOCIAL HISTORY: Denies tobacco, alcohol, or illicit drug use. She lives with her at home. ALLERGIES: TO CODEINE AND IODINE. REVIEW OF SYSTEMS: Ten systems reviewed and negative except as reported in HPI. PHYSICAL EXAMINATION: VITAL SIGNS: Temperature 97.2, pulse is 60, respirations 18, blood pressure 162/58, pulse ox is 97% on 2 L of nasal cannula. GENERAL: Fatigue. HEENT: Normocephalic and atraumatic. NECK: Supple. LUNGS: With decreased breath sounds. CARDIOVASCULAR: Regular rate and rhythm. GI: Soft and is tender to touch. NEUROLOGIC: Alert, awake, and oriented x2-3. MUSCULOSKELETAL: Moves all extremities. Right-sided weakness noted. Chronic from previous CVA. SKIN: Dry with bruising in the upper extremities. PSYCH: Calm. LABORATORY DATA: WBC 7.17, hemoglobin 10.9, hematocrit 35.7, and platelet is 101. Sodium 143, potassium 3.9, CO2 of 33, BUN is 32, creatinine 1.01, estimated GFR 52, glucose is 106, calcium 9. Cortisol levels pending. PT 13.4, INR 0.97. D-dimer 0.67. UA with trace leukocyte esterase, wbc 6-10, bacteria many, and yeast. IMAGING: CT brain, small juxtacortical hypodense in the left superior frontal gyrus, left posterior middle frontal gyrus, and the left precentral gyrus may be due to age indeterminate infarcts. No other acute intracranial abnormalities. Mild supratentorial chronic microvascular ischemic changes, mild generalized cerebral volume loss. Chest x-ray, no significant interval change. Bilateral pulmonary venous congestion and interstitial edema with moderate volume, left pleural effusion with obscuration of the left hemithorax, probably atelectasis, however, consolidation cannot be excluded. MRI of the brain shows no acute intracranial abnormalities, specifically no acute infarct. Small chronic cortical infarct in the left frontal lobe and precentral gyrus, chronic microvascular ischemic change. IMPRESSION AND PLAN: 1. Slurred speech and increased generalized weakness. CT brain and MRI negative for acute process. We will consult Physical Therapy for evaluation. 2. Escherichia coli and Pseudomonas aeruginosa urinary tract infection. We will continue on cefepime b.i.d. We will also check CT of abdomen and pelvis as she is complaining of abdominal pain. 3. Hypertension. We will resume home Norvasc and lisinopril. 4. Hypothyroidism. We will resume Synthroid 200 mcg daily. 5. High cholesterol, on statin. 6. History of cerebrovascular accident with right-sided weakness. Continue aspirin, statin, and physical therapy. 7. Chronic anemia. Hemoglobin is 9.9. We will continue to monitor. 8. Diastolic congestive heart failure without exacerbation. We will continue with Lasix IV b.i.d. Chest x-ray shows some pulmonary edema. We will repeat tomorrow. 9. Diabetes. Continue glimepiride and sliding scale insulin. 10. Deep vein thrombosis prophylaxis, Lovenox subcu. Dictated by KAILA Mattson Mavisching Mook Alvarez MD MY/MODL /[id number]
--- NOTE | 2020-01-02 18:41 | Diagnostic Imaging Report ---
EXAM: CT Abdomen and Pelvis WITHOUT contrast INDICATION: Abdominal pain. COMPARISON: None. TECHNIQUE: Abdomen and pelvis were scanned utilizing a multidetector helical scanner from the lung base to the pubic symphysis without administration of IV contrast. Absence of intravenous contrast decreases sensitivity for detection of focal lesions and vascular pathology. Coronal and sagittal reformations were obtained. Routine protocol was performed. IV CONTRAST: None. Withheld due to history of contrast allergy. ORAL CONTRAST: 900 mL of Gastrografin and water mixture. RADIATION DOSE: Total DLP: 811.22 mGy*cm Estimated effective dose: (DLP x 0.015 x size factor) mSv COMPLICATIONS: None FINDINGS: LINES and TUBES: None. LOWER THORAX: Bilateral small pleural effusion and bibasilar subsegmental atelectasis. Trace pericardial effusion. Calcifications of the aortic root and descending thoracic aorta. HEPATOBILIARY: No focal hepatic lesions. No biliary ductal dilation. GALLBLADDER: There are calcified calculus within the gallbladder lumen. No wall thickening. SPLEEN: No splenomegaly. PANCREAS: No focal masses or ductal dilatation. ADRENALS: No adrenal nodules KIDNEYS/URETERS: There is mild bilateral hydronephrosis and hydroureter to the level of the urinary bladder. 3.7 cm low-attenuation lesion partially exophytic of the lower pole of the left kidney posteriorly on image 37 suggestive of a cyst. No stones. GI TRACT: No abnormal distention, wall thickening, or evidence of bowel obstruction. There are a few scattered diverticula throughout the colon without evidence of diverticulitis. Appendix is normal. PELVIC ORGANS/BLADDER: The urinary bladder is moderately distended. LYMPH NODES: No lymphadenopathy. VESSELS: There is moderate atherosclerotic disease in the aorta and major arterial branches. PERITONEUM / RETROPERITONEUM: No free air or fluid. BONES: Compression fracture of T12. Generalized osteopenia. SOFT TISSUES: Unremarkable. IMPRESSION: 1. Mild bilateral hydroureteronephrosis and moderate distention of the urinary bladder. 2. Cholelithiasis. No biliary dilatation. 3. Mild diverticulosis coli without diverticulitis. 4. Bilateral small pleural effusion and bibasilar subsegmental atelectasis. 5. Compression fracture of T12 of uncertain age, however, likely chronic. Signed by: Dr. Diego Shields M.D. on 01/02/2020 6:38 PM
--- NOTE | 2020-01-02 18:43 | NUR ---
PT RESTING ON BED BED SIDE REPOT GIVEN TO ONCOMING NURSE
--- NOTE | 2020-01-02 19:25 | NUR ---
Patient received lying in bed. AAO x 2. Patient had no complaints of pain. Respirations even and non-labored on 2L NC. Safety measures in place. Patient instructed to ask for assistance when needed. Call light within reach.
[2020-01-02] MEDS ORDERED: BISACODYL 5 MG TAB EC PO ONE (21:30)
[2020-01-02] MEDS: SIMVASTATIN 20 MG TAB PO SCH (22:08)
[2020-01-02] MEDS: LACTOBACILLUS ACIDOPHILUS CAPSULE PO SCH (22:08)
[2020-01-03] VITALS (9 sets, daily range): BP systolic 113–160; BP diastolic 37–87
[2020-01-03] MEDS: LEVOTHYROXINE SODIUM 100 MCG TAB PO SCH (05:51)
[2020-01-03] MEDS: ACETAMINOPHEN 325 MG TAB PO PRN (05:51)
[2020-01-03 06:24] LABS: ALBUMIN 2.7 g/dL (3.5-5.0); ANION GAP 13.7 mmol/L (8-16); CREATININE, SERUM 0.96 mg/dL (0.57-1.11); POTASSIUM 3.7 mmol/L (3.5-5.1)
--- NOTE | 2020-01-03 07:00 | NUR ---
Patient resting comfortably. Walking rounds done. Bed-side shift report given to oncoming nurse regarding patient's status.
--- NOTE | 2020-01-03 07:00 | NUR ---
RCD PT AT BED PT IS ALERT AND CONFUSED RESTING ON BED IV PATENT BY SALINE FLUSH ,WHILE GIVING REPORT SHE TOLD TEMPERATURE 92 F ,BED LOW AND LOCKED CALL LIGHT IN REACH
[2020-01-03] MEDS: INSULIN REGULAR, HUMAN 100 UNIT/1 ML 3ML VIAL SQ SCH ×4 (07:30→20:31)
--- NOTE | 2020-01-03 08:00 | NUR ---
WHILE TAKING THE VITAL SIGNS THE TEMPERATURE 92 F ,CHECKED AXILLA ,ORALLY AND BY EAR ,EVERY TIME LOW TEMPERATURE ,
--- NOTE | 2020-01-03 08:15 | NUR ---
NOTIFIED THE CHARGE NURSE THE TEMPERATURE AND PT NEED FOR BEAR HUGGER SINCE THE PT HAVE THE ORDER FOR THAT
--- NOTE | 2020-01-03 08:45 | NUR ---
PROVIDE WARM BLANKET TO THE PATIENT
[2020-01-03] MEDS: GLIMEPIRIDE 2 MG TAB PO SCH ×2 (09:00→16:55)
[2020-01-03] MEDS: FUROSEMIDE INJ 10 MG/ML 4 ML VIAL IV SCH ×2 (09:00→20:31)
[2020-01-03] MEDS: LACTOBACILLUS ACIDOPHILUS CAPSULE PO SCH ×3 (09:00→19:31)
[2020-01-03] MEDS: AMLODIPINE BESYLATE 10 MG TAB PO SCH (09:00)
[2020-01-03] MEDS: ASPIRIN 81 MG CHEW TAB PO SCH (09:00)
[2020-01-03] MEDS: CEFEPIME 1GM/NS 0.9% 50 ML 50 ML IV SCH (09:00)
[2020-01-03] MEDS: HYDRALAZINE HCL 25 MG TAB PO SCH ×3 (09:00→19:31)
[2020-01-03] MEDS: BENAZEPRIL HCL 10 MG TAB PO SCH (09:00)
--- NOTE | 2020-01-03 09:20 | NUR ---
STARTED THE BEAR HUGGER WITH TEMPERATURE 36.8
--- NOTE | 2020-01-03 10:00 | NUR ---
NOT GETTING TEMPERATURE BY MOUTH OR AXILLA
--- NOTE | 2020-01-03 10:09 | NUR ---
RECTAL TEMPERATURE 91.2 F
[2020-01-03] MEDS ORDERED: SODIUM CHLORIDE 0.9% 1000ML 1,000 ML IV SCH (12:15)
--- NOTE | 2020-01-03 12:17 | NUR ---
Discussed IMM letter with daughter Bell over the phone, original left in pt's room, copy placed in pt's chart.Senior Resources Guide left in pt's room with list of agencies to assist with provider services as daughter requested.
--- NOTE | 2020-01-03 12:20 | NUR ---
BLADDER SCAN DONE 452 ML URINE ,INSERT THE QUINONES 18FR
--- NOTE | 2020-01-03 12:44 | NUR ---
REPORT GIVEN TO KIMBERLY LUTZ
--- NOTE | 2020-01-03 12:50 | NUR ---
TRANSFERRED THE PT IN IMCU ROOM NO 198 IN SAFE CONDITION
--- NOTE | 2020-01-03 13:00 | NUR ---
rec'd pt. in rm 198 from med surg 2. placed on the monitor and vitals taken. repostioned in bed for comfort.
--- NOTE | 2020-01-03 14:25 | NUR ---
medical lab scientist in room to draw blood cultures. spouse at side.
--- NOTE | 2020-01-03 16:47 | Consultation ---
DATE OF CONSULTATION: 01/03/2020 HISTORY OF PRESENT ILLNESS: The patient is an 84-year-old white Latin-Cuban female, who has history of hypertension, hypercholesteremia, congestive heart failure, CVA right-sided weakness, left side vision loss, diabetes mellitus, and neuropathy, comes into the emergency room with weakness, slurred speech, not feeling well. The patient was recently in the hospital with UTI. She was given IV antibiotic, details are not available, but she is coming back with the above. LABORATORY DATA: White count 7.7, hemoglobin 10, hematocrit 35. Sodium 140, potassium 3.7, creatinine 0.96. Liver enzyme within normal limit. The patient had CT scan of abdomen and pelvis, which showed mild bilateral hydroureteronephrosis and cholelithiasis. The patient had a chest x-ray that showed pulmonary venous congestion. The patient is currently on amlodipine, cefepime, Lasix, Amaryl, Synthroid, Zocor, and insulin. The patient does not really provide any further information, history was taken from the chart, but since admission she is afebrile. PHYSICAL EXAMINATION: HEENT: Normocephalic, not pale, not icteric. NECK: Supple. CHEST: Crackles bilateral. HEART: S1-S2. ABDOMEN: Soft. Bowel sounds present. EXTREMITIES: No edema. SKIN: There is no rash. IMPRESSION AND PLAN: 1. Slurred speech. CT did not show active process, history of urinary tract infection. I am concerned that her mental status could be from antibiotics. I would recommend to discontinue antibiotic for the time being while we wait for further culture. 2. Diabetes. 3. We will observe the patient clinically since admission there is no fever. Cultures are negative. We will reassess soon. We will follow with you. MD ZAID Beckwith/MODL /[id number]
[2020-01-03] MEDS: DEXTROSE 50% SYRINGE 50 ML IV PRN (16:51)
--- NOTE | 2020-01-03 16:53 | NUR ---
BLOOD SUGAR OF 46; AMP OF D50 PUSHED
[2020-01-03] MEDS: ENOXAPARIN SOD INJ 40 MG/0.4 ML SYR SC SCH (17:11)
[2020-01-03] MEDS ORDERED: DEXTROSE 5% 1,000 ML IV SCH (17:30)
--- NOTE | 2020-01-03 17:38 | NUR ---
RE CHECK BLOOD SUGAR 117. IVF D5 HUNG AT 50ML/HR
--- NOTE | 2020-01-03 18:50 | NUR ---
REPORTED OFF TO BOLIVAR CASTRO
[2020-01-03] MEDS: SIMVASTATIN 20 MG TAB PO SCH (19:30)
--- NOTE | 2020-01-03 20:03 | Progress Note ---
DATE: 01/03/2020 CONSULTANTS: 1. Dr. Ramirez with ID. 2. Dr. Howell with Urology. SUBJECTIVE: The patient is noted to be hypothermic this morning with temperature of 92 to [address]le[address] in [address] We will transfer to [facility] for closer monitoring. She is lethargic, reports abdominal pain is improved some after bowel movement last night. She denies any chest pain, shortness of breath, nausea, or vomiting. She is also not eating much. PHYSICAL EXAMINATION: VITAL SIGNS: Temperature 92.3, pulse is 56, respirations 20, blood pressure 131/46, pulse ox is 100% on 3 L of nasal cannula. GENERAL: Fatigued and less responsive. HEENT: Normocephalic and atraumatic. NECK: Supple. LUNGS: Decreased breath sounds. CARDIOVASCULAR: Regular rate and rhythm. GI: Soft, mild tenderness, obese. NEUROLOGIC: Lethargic, oriented x2. MUSCULOSKELETAL: Moves all extremities. Right-sided weakness from previous stroke. SKIN: Dry with bruising on upper extremities. PSYCH: Calm. LABORATORY DATA: Sodium 144, potassium 3.7, BUN is 32, creatinine 0.96, estimated GFR is 56, glucose 96, AST 18, ALT 12, albumin 2.7. UA with trace leukocyte. CT abdomen and pelvis showed mild bilateral hydroureteronephrosis and moderate distention of the urinary bladder, cholelithiasis with biliary dilation, mild diverticulosis without diverticulitis, bilateral pleural effusion, and bibasilar subsegmental atelectasis, compression fracture of T12, uncertain of age, likely chronic. IMPRESSION: 1. Slurred speech and increased generalized weakness. CT brain and MRI was negative for acute process. She is also noted to be hypothermic. We will consult ID for further evaluation. 2. Recent Escherichia coli and Pseudomonas aeruginosa urinary tract infection. We will continue with cefepime b.i.d. CT abdomen showed mild bilateral hydroureteronephrosis and bladder distension. We will consult Urology for evaluation. 3. Hypertension. We will resume Norvasc and lisinopril. 4. Hypothyroidism. Resume Synthroid 200 mcg daily. Last TSH was 11. We will follow with her PCP for further eval. 5. High cholesterol, on statin. 6. History of cerebrovascular accident with residual right-sided weakness. Continue aspirin and statin. Physical therapy as tolerated. 7. Chronic anemia. Hemoglobin is stable. We will continue to monitor. 8. Diastolic congestive heart failure. We will continue with Lasix IV b.i.d. Chest x-ray noted with pulmonary edema. 9. Diabetes. We will hold glimepiride and sliding scale and she is not eating due to her lethargic state. 10. Deep venous thrombosis prophylaxis. Lovenox subcu. PLAN: To transfer her to [facility] for close monitoring of her temperature and overall mental status. Consulted Urology and ID for further evaluation. We will check blood cultures. We will start on IV fluids since she is not eating much. Dictated by Daxa Feldman, ANP Rocio Alvarez MD MY/MODL /[id number]
--- NOTE | 2020-01-03 20:28 | NUR ---
CALLED DR MARIANO'S PA TO NOTIFY THAT PT IS TOO ALTERED, LETHARGIC AND UNABLE TO SWALLOW TO TAKE PO MEDICATIONS AND ASKED TO RETAIL BEAUTY SPECIALIST TO IV MEDS FOR THOSE AVAILABLE ESPECIALLY SYNTHROID AND BP MEDS. ORDERED TO PUT THEM ON HOLD AND WILL FOLLOW UP IN THE AM.
[2020-01-04] VITALS (15 sets, daily range): BP systolic 101–144; BP diastolic 30–106
--- NOTE | 2020-01-04 00:45 | NUR ---
PATIENT O2 SATURATION BEGAN READING AT 83% WITH RR 45, NURSE TURNED UP 02 WITH NO CHANGE CALLED FOR RESPIRATORY AND NURSE PLACED PT ON NRB AT 15L AND PT OR SAT CAME TO 91% AND RESPIRATORY CAME TO CHECK ON PT. CALLED DR MARIANO TO UPDATE ON PT SITUATION LEFT [facility] AND WAITING DRAFTER TOPOGRAPHICAL BACK.
--- NOTE | 2020-01-04 00:56 | NUR ---
DR MARIANO CALLED AND WAS ED ON PT CURRENT STATUS ORDERED CONSULT WITH DR Diego GREENE. CALLED TO NOTIFY DR GREENE OF CONSULT AND PT CONDITION HE ORDERED STAT ABG AND CALL WITH RESULT.
[2020-01-04 01:16] LABS: ABG HCO3 35 mmol/L (22-26); ABG PCO2 47 mmHg (35-45); ABG PH 7.48 (7.35-7.45); ABG PO2 79 mmHg (80-105); ABG TCO2 37
--- NOTE | 2020-01-04 02:48 | NUR ---
PATIENT O2 SAT BEGAN TO DROP AGAIN WHEN NURSE ENTERED THE ROOM PT NRB WAS PULLED OFF HER FACE AND HER ARMS WERE MOVING UP AND DOWN, UNRESPONSIVE WITH LEFT SIDE OF FACE APPEARING TO DROOP MORE THAN NORMAL. BOTH [facility] CALLED FOR CHARGE NURSE AND THEY ATTENDED TO PT WHILE I CALLED DR GREENE TO NOTIFY OF CHANGE, STAT CT ORDERED. PT BLOOD GLUCOSE WAS CHECKED AND FOUND TO BE 33 DESPITE BEING ON D5 IV DRIP SO ONE AMP D50 WAS GIVEN IV BRINGING PT BLOOD GLUCOSE TO 162. PT WAS TRANSPORTED TO CT WITH NURSE AND GROUNDS SUPERVISOR FOR IMAGING AND WAS TAKEN BACK TO ROOM IN STABLE CONDITION. Addendum: 01/04/20 at 0423 by Betty Rubio RN DR GREENE HAD ALSO ORDERED PT TO MOVE TO ICU.
--- NOTE | 2020-01-04 03:50 | Diagnostic Imaging Report ---
EXAMINATION: Head CT without contrast. HISTORY:Altered mental status. COMPARISON:CT and MRI brain from 01/01/2020. TECHNIQUE: Multidetector axial images were obtained from the foramen magnum to the vertex without contrast. The images were reconstructed using brain and bone algorithms. Thin section brain images were reformatted into coronal and sagittal planes. Dose modulation, iterative reconstruction, and/or weight based adjustment of the mA/kV was utilized to reduce the radiation dose to as low as reasonably achievable. Intravenous contrast: None IMAGE QUALITY: Suboptimal evaluation due to motion-related streak artifacts. FINDINGS: Skull/scalp: No lytic or blastic. lesions. No surgical changes. Parenchyma: Persistent cortical-based hypodensity in left superior, middle frontal gyrus and precentral gyrus from prior vascular insult. Nonspecific bilateral frontoparietal patchy white matter hypodensity are likely related to small vessel ischemic changes. No acute hemorrhage, mass or acute major vascular territorial infarct. Arteries: No density suggestive of thrombosis. Dural sinuses: No abnormal density suggestive of thrombosis. Ventricles: No hydrocephalus or displacement. Extra-axial spaces: No abnormal density. Brain volume: Generalized age-related cerebral volume loss. Craniocervical junction: No mass, Chiari malformation, or basilar invagination. Sella: No mass. Paranasal/mastoid sinuses: Imaged portions unremarkable. IMPRESSION: No acute intracranial abnormality. No change since CT brain from 01/01/2020. Persistent findings: 1. Mild supratentorial white matter microvascular ischemic changes. 2. Small chronic encephalomalacia in left precentral gyrus and frontal lobe from prior vascular insult. Signed by: Dr. Janette Whiteside M.D. on 01/04/2020 3:47 AM
--- NOTE | 2020-01-04 03:55 | NUR ---
NURSE RECHECKED PT BLOOD GLUCOSE AND FOUND TO BE 69 DESPITE IV D5 RATE INCREASED TO 75ML/HR, CALLED DR GREENE WITH PT UPDATE INLCUDING CT RESULTS AND ORDERED TO START D10 IV DRIP AT 75ML/HR AND WAIT TO MOVE PT TO ICU AT THIS TIME.
[2020-01-04] MEDS: DEXTROSE 10% 1,000 ML IV SCH ×2 (04:07→09:49)
[2020-01-04] MEDS ORDERED: DEXTROSE 10% 1,000 ML IV ONE (04:10)
[2020-01-04 04:55] LABS: CLARITY,URINE TURBID (CLEAR); COLOR,URINE AMBER (YELLOW)
[2020-01-04 04:56] LABS: KETONES,URINE NEGATIVE (NEGATIVE); LEUKOCYTE ESTERASE ,URINE LARGE (NEGATIVE); NITRITE,URINE NEGATIVE (NEGATIVE); PROTEIN,URINE DIPSTICK >=300 (NEGATIVE); URINE UROBILINOGEN 0.2 mg/dL (0.2 - 1)
[2020-01-04 04:57] LABS: BACTERIA,URINE MANY /HPF; BILIRUBIN,URINE SMALL (NEGATIVE); EPITHELIAL CELLS,URINE MANY /LPF; RBC,URINE >50 /HPF (0-5); WBC,URINE (MAN) >50 /HPF (0-5)
[2020-01-04 05:30] LABS: BASOPHILS % 0.2 % (0.0-1.0); EOSINOPHILS # (AUTO) 0.1 (0.0-0.4); EOSINOPHILS % 0.7 % (0.0-6.0); HEMATOCRIT 30.3 % (34.2-44.1); HEMOGLOBIN 9.2 g/dL (12.0-16.0); LYMPHOCYTES # (AUTO) 0.8 (1.0-3.2); LYMPHOCYTES % 6.6 % (18.0-39.1); MEAN CORPUSCULAR HGB CONC 30.4 g/dL (31-35); MEAN CORPUSCULAR VOLUME 88.9 fL (81-99); MONOCYTES % 7.6 % (4.4-11.3); NEUTROPHILS # (AUTO) 10.5 (2.1-6.9); NEUTROPHILS % 83.9 % (38.7-80.0); PLATELET COUNT 81 x10e3/uL (140-360); RED BLOOD COUNT 3.41 x10e6/uL (3.6-5.1); RED CELL DISTRIBUTION WIDTH 20.2 % (11.7-14.4)
--- NOTE | 2020-01-04 05:39 | NUR ---
NURSE CHECKED PT BLOOD GLUCOSE AGAIN AND DESPITE D10 @75ML/HR PT GLUCOSE WAS 42. CALLED TO NOTIFY DR GREENE AND STATES TO RUN D10 AT 150ML/HR AND CONSULT DR LAMA. NOTIFIED DR LAMA OF CONSULT AND PT CONDITION HE ORDERED TO START D20 @100ML/HR.
[2020-01-04] MEDS: DEXTROSE 50% SYRINGE 50 ML IV PRN ×8 (05:40→20:10)
[2020-01-04 05:45] LABS: ALANINE AMINOTRANSFERASE 10 IU/L (0-55); ALBUMIN 2.5 g/dL (3.5-5.0); ALKALINE PHOSPHATASE 63 IU/L (40-150); ANION GAP 12.8 mmol/L (8-16); BLOOD UREA NITROGEN 32 mg/dL (7-26); BUN/CREATININE RATIO 27 (6-25); CALCIUM 8.4 mg/dL (8.4-10.2); CARBON DIOXIDE 34 mmol/L (22-29); CHLORIDE 103 mmol/L (98-107); EST GLOMERULAR FILTRATION RATE 43 ML/MIN (60-); GLUCOSE 63 mg/dL (74-118); POTASSIUM 3.8 mmol/L (3.5-5.1); SODIUM 146 mmol/L (136-145)
[2020-01-04] MEDS ORDERED: DEXTROSE 20% 500 ML IV ONE ×2 (05:45→09:45)
[2020-01-04 05:46] LABS: CREATINE KINASE < 7 IU/L (29-168)
--- NOTE | 2020-01-04 05:48 | NUR ---
CALLED TO NOTIFY DR GREENE THAT PT NEEDS CENTRAL LINE PLACEMENT DUE TO PT HAVING SINGLE LUMEN MIDLINE AND DR LAMA WANTS D20 IV ORDERED. DR GREENE STATES TO RUN D10 AT 150 UNTIL HE CAN GET HERE TO PLACE CENTRAL LINE. PT CURRENT BLOOD GLUCOSE IS 104 WITH D10 @150 ML/HR AND ORDERED CPEPTIDE LAB PER DR LAMA ORDER.
[2020-01-04 06:11] LABS: B-TYPE NATRIURETIC PEPTIDE2 223.2 pg/mL (0-100)
--- NOTE | 2020-01-04 06:15 | NUR ---
NURSE CALLED DAUGHTER DEANGELO BENEDICT TO GET CONSENT FOR CENTRAL LINE PLACEMENT AND LEFT MESSAGE, AWAITING CALL BACK. ALSO LEFT MSG WITH DAUGHTER LUI AT [phone].
--- NOTE | 2020-01-04 06:41 | NUR ---
CALLED AND SPOKE TO DAUGHTER DEANGELO AT [phone] AND SHE CONSENTED TO CENTRAL LINE PLACEMENT FOR HER MOTHER AND GAVE FATHER'S INFO (PT'S ) OF MAUREEN LOTT AND CALLED HIM BUT WAS UNABLE TO REACH HIM TO LET HIM KNOW STATUS OF PT. PASSED INFO ON TO ONCOMING NURSE AND CONSENT IN CHART FROM DAUGHTER'S CONSENT WITH 2 NURSE AUTHORIZATION.
--- NOTE | 2020-01-04 07:06 | NUR ---
blood sugar 59- 1 amp of d50 given iv push.
[2020-01-04] MEDS: INSULIN REGULAR, HUMAN 100 UNIT/1 ML 3ML VIAL SQ SCH ×4 (07:14→20:10)
--- NOTE | 2020-01-04 07:23 | NUR ---
DR. Diego GREENE CALLED TO CONFIRM CONSENT/ U.S. WITH [employer] IN ROOM FOR THIS PT.
--- NOTE | 2020-01-04 08:15 | NUR ---
CENTRAL LINE PLACED BY DR. Diego GREENE. PT TOLERATED WELL.
[2020-01-04] MEDS ORDERED: LIDOCAINE HCL 2% LOCAL 20 ML VIAL ONE (08:16)
--- NOTE | 2020-01-04 09:05 | NUR ---
RADIOLOGY IN ROOM WITH THE PATIENT.
--- NOTE | 2020-01-04 09:41 | Operative Report ---
DATE OF PROCEDURE: 01/04/2020 SURGEON: Darion Reddy MD PROCEDURE: Central line placement under ultrasound guidance. PREOPERATIVE DIAGNOSIS: Hypoglycemia. POSTOPERATIVE DIAGNOSIS: Hypoglycemia. CONSENT: Consent was obtained from the family. MEDICATIONS: 1% lidocaine for local anesthesia. DESCRIPTION OF PROCEDURE: The right neck was prepped sterilely with chlorhexidine. A full-length drape, sterile gown, sterile gloves were used. 1% lidocaine was used to anesthetize the area in the neck around the head of the sternocleidomastoid. An ultrasound machine was used to locate the right internal jugular vein. The vein compressed easily. There was no intraluminal thrombosis. The vein was cannulated under direct visualization with a 16-gauge needle on the first attempt. A wire was passed through the needle. A dilator was used to open the skin and a triple-lumen catheter was placed over the wire by the Seldinger technique. All the ports were flushed. COMPLICATIONS: None. ESTIMATED BLOOD LOSS: None. Darion Reddy MD [facility]/MODL /[id number]
--- NOTE | 2020-01-04 10:28 | NUR ---
SISTER AT BEDSIDE.
--- NOTE | 2020-01-04 10:42 | Diagnostic Imaging Report ---
EXAMINATION: CHEST XRAY LINE PLACEMENT INDICATION: POST LINE PLACEMENT COMPARISON: CT abdomen and pelvis on 01/02/2020. FINDINGS: TUBES and LINES: Right central venous catheter which terminates at the cavoatrial junction. LUNGS: Diffuse interstitial prominence and patchy opacity the bilateral lung bases. PLEURA: There is moderate left and trace right pleural effusion. No pneumothorax. HEART AND MEDIASTINUM: The cardiomediastinal silhouette is enlarged. There are atherosclerotic calcifications within the aorta. BONES AND SOFT TISSUES: Degenerative changes in the spine and shoulders. Soft tissues are unremarkable. UPPER ABDOMEN: No free air under the diaphragm. IMPRESSION: 1. Right central venous catheter which terminates in the cavoatrial junction. 2. Cardiomegaly with pulmonary edema. 3. Moderate left and trace right pleural effusion. 4. Patchy opacification of the bilateral lung bases, left more to right, may represent superimposed atelectasis or developing multifocal pneumonia in the proper clinical context. Signed by: Ruba Orozco MD on 01/04/2020 10:38 AM
--- NOTE | 2020-01-04 10:49 | NUR ---
CALL PLACED TO DR. Diego GREENE; LEFT MESSAGE; AWAITING C/B
[2020-01-04] MEDS: DEXTROSE 20% 500 ML IV SCH ×2 (11:30→16:52)
[2020-01-04] MEDS ORDERED: LEVOTHYROXINE SODIUM 100 MCG/VIAL IV SCH (12:00)
--- NOTE | 2020-01-04 12:26 | Consultation ---
DATE OF CONSULTATION: 01/04/2020 PULMONARY CRITICAL CARE CONSULTATION.: CHIEF COMPLAINT: Decreased responsiveness and hypothermia. HISTORY OF PRESENT ILLNESS: The patient is an 84-year-old woman. She has a history of hypertension, hypothyroidism, and prior CVA. She also has diabetes. She was recently hospitalized at [facility] with UTI and sepsis and required IV antibiotics. After discharge, she was not improving and came to the hospital because of worsening mental status and poor speech. She was evaluated by Neurology. She had a CT scan of the brain and MRI that were negative. She also had E coli and Pseudomonas in her urinary tract. She was started on appropriate antibiotics. Despite these treatment, she developed low temperature with temperature of 93. She had increasing confusion and some dyspnea. Her oxygen was increased and she was transferred to the [facility]. During the night, she was found to have hypoglycemic. She received D50 and was started D10. However, a blood sugars have remained low and she is going to require D10 according to the bond analyst. PAST MEDICAL HISTORY: 1. Hypertension. 2. Congestive heart failure. 3. Prior cerebrovascular accident with right-sided weakness. 4. Hypothyroidism. 5. Hypertension. 6. Diabetes. PAST SURGICAL HISTORY: Not obtainable at this time. ALLERGIES: THE PATIENT IS ALLERGIC TO CODEINE AND IODINE. FAMILY HISTORY: There is a history of heart disease. SOCIAL HISTORY: The patient has no history of alcohol or tobacco use. She lives with her at home. REVIEW OF SYSTEMS: The patient had some hypothermia. She has increased confusion. She was not complaining of cough. She did not complain of dyspnea, although she had low oxygen saturations. She did not have nausea or vomiting. There was no report of abdominal pain. There was no reported leg edema. PHYSICAL EXAMINATION: VITAL SIGNS: Blood pressure is 131/55 saturation is now 100% on nasal cannula and the pulse is 77. T-max is 99.6. HEENT: Shows no facial swelling or erythema. LYMPHATIC: Shows no submandibular, cervical, or supraclavicular adenopathy. CARDIAC: Reveals regular rate and rhythm with normal S1, S2. LUNGS: Auscultation of lungs are decreased breath sounds at bases. There is no wheezing. ABDOMEN: Soft and nontender. There is no rebound or guarding. EXTREMITIES: There is no leg edema. NEUROLOGICAL: Confusion, but no focal abnormalities. There is some residual right-sided weakness. LABORATORY DATA: White blood cell count is 12.5 and hemoglobin is 9.2, the platelet count is 81. BUN to creatinine ratio is 32 to 1.2. Sodium is 146. Albumin was 2.5. IMPRESSION: 1. Metabolic encephalopathy. 2. Urinary tract infection with sepsis, present on admission. 3. Persistent hypoglycemia secondary to medications and insulin. 4. Hypothyroidism. 5. Hypertension. 6. Prior cerebrovascular accident. 7. Anemia secondary to chronic disease. 8. Chronic diastolic heart failure. PLAN: 1. Continue current antibiotics. 2. Hold Amaryl and insulin for now. 3. Begin as recommended by Endocrinology. 4. Continue to monitor mental status. 5. Echocardiogram. 6. Hold diuretics for now because of the elevated creatinine. Darion Reddy MD [facility]/MODL /[id number]
--- NOTE | 2020-01-04 14:17 | NUR ---
call placed to dr. irene; informed him of blood sugars in the 40's/50's; and that this nurse had given her 3 amps of d50. no new orders rec'd. continue d20 at 80cc/hr.
[2020-01-04 17:29] LABS: FREE T4 (FREE THYROXINE) 1.01 ng/dL (0.8-1.8); THYROID STIMULATING HORMONE 12.917 uIU/mL (0.350-4.940)
[2020-01-04] MEDS: ENOXAPARIN SOD INJ 40 MG/0.4 ML SYR SC SCH (17:29)
--- NOTE | 2020-01-04 18:48 | Consultation ---
DATE OF CONSULTATION: 01/04/2020 Urology consultation REASON FOR CONSULTATION: Hydronephrosis. HISTORY OF PRESENT ILLNESS: Pino Barton is an 84-year-old woman who was admitted on January 01 with slurred speech and generalized weakness. The patient is not conversant and I cannot get a good history from her. All information is obtained from discussion with the nurses and review of the patient's chart. The patient apparently was recently discharged home after being treated for UTI with IV antibiotics. She did not improve and had neurological changes and was brought back to the emergency room. She was subsequently admitted. I was called with a diagnosis of hydronephrosis as the nurses did check a bladder volume with a bladder scanner if it was more than [address] Puente catheter. The patient has a Puente catheter today and the bladder scanner revealed a residual greater than 450 mL. PAST MEDICAL AND SURGICAL HISTORY: 1. Hypertension. 2. Hypercholesterolemia. 3. Congestive heart failure. 4. Hypothyroidism. 5. Coronary artery disease. 6. Ischemic CVA with right-sided weakness. 7. Diabetes mellitus. FAMILY HISTORY: Noncontributory to the active urological problems. SOCIAL HISTORY: Apparently, there is no history of smoking, ethanol, or drug use. The patient lives with her at home. ALLERGIES: CODEINE AND IODINE. CURRENT MEDICATIONS: Please refer to the MAR. REVIEW OF SYSTEMS: Believed to be consistent with above history of present illness, otherwise believed to be negative for all systems. PHYSICAL EXAMINATION: GENERAL: Debilitated woman, sitting up in bed with one eye closed and not very conversive, but she is awake. ABDOMEN: Obese, soft, nondistended, nontender without costovertebral angle tenderness. GENITOURINARY: There is a Puente catheter in place, draining yellow urine out with some debris noted. For the remaining physical examination systems, please refer to the admission history and physical in chart. LABORATORY STUDIES: CT scan of the abdomen and pelvis showed mild bilateral hydroureteronephrosis to the level of the urinary bladder. They did note that the patient's bladder is "moderately distended." My examination of the CT reveals that is very distended. The patient also has a possible left renal cyst as well. She also has a compression fracture of T12 on the CT. Urine and blood cultures are pending. White blood cell count is 12,490, hemoglobin 9.2, and platelet only 81,000. The patient's sodium was elevated at 146, and creatinine is elevated at 1.2. ASSESSMENT: 1. Bilateral hydroureteronephrosis. 2. Urinary retention. 3. Neurogenic bladder due to cerebrovascular accident. 4. Left lower pole renal cyst. 5. Microhematuria. 6. Urinary tract infection. 7. Puente catheter in situ. 8. Obesity. 9. Acute renal insufficiency. 10. Hypernatremia. 11. Leukocytosis. 12. Anemia. 13. Thrombocytopenia. PLANS: 1. Leave the Puente catheter in place. 2. Irrigate and aspirate the Puente catheter q. shift and p.r.n. to clear the debris noted in the patient's Puente catheter. 3. The patient needs ongoing Puente catheterization until she has improved. She may be too debilitated to perform a urodynamic study. Hopefully, she will improve to the point where we will be able to perform urodynamic study and manage her bladder in a better fashion and Puente catheter. Thank you very much for involving us in the care of your patient. We will be happy to follow along with you as well as an outpatient. Kalyan Howell MD [place]/LEELEEL /[id number]
--- NOTE | 2020-01-04 20:09 | Consultation ---
DATE OF CONSULTATION: 01/04/2020 Endocrine Consultation The patient of Dr. Alvarez. Thank you very much for referring this patient. HISTORY OF PRESENT ILLNESS: This is an 84-year-old white female who was referred to me for evaluation of intractable hypoglycemia. The patient is a known diabetic for the last several years and she is on glimepiride 2 mg once daily. Had insulin. At this time, the patient came to the hospital with history of shortness of breath and on further evaluation, her blood sugar was significantly low. The blood sugars have been running in 30 to 40 range. The patient has been off the glimepiride for almost 24 hours now. Her p.o. intake is also very low. OTHER MEDICAL PROBLEMS: Include history of hypertension, congestive cardiac failure. She has urinary retention and hypothyroidism. OTHER ROUTINE MEDICATIONS: Include Synthroid 0.2 mg once daily. She is on hydralazine, amlodipine, Lasix and benazepril 40 mg once daily. PHYSICAL EXAMINATION: GENERAL: Today, the patient is awake, but confused. She is blind on the left eye. VITAL SIGNS: Her heart rate is around 70, blood pressure is 120/78 mmHg. HEENT: Essentially unremarkable. Thyroid is palpable. Clinically, she is near euthyroid. CHEST: Bilateral vesicular breathing. No rales. CARDIAC: First and second heart sound. There is no third or fourth heart sound. Ejection systolic murmur grade 2/6. EXTREMITIES: The patient has bilateral pedal edema. CLINICAL IMPRESSION: Hypoglycemia multifactorial, could be probably related to sulfonylureas. Diabetes mellitus type 2 with complications. Urinary retention, renal insufficiency, hypothyroidism, congestive cardiac failure, hypertension. PLAN: At this time is to discontinue the glimepiride completely. We will change her to D20 and increase the p.o. intake if possible. We will check the C-peptide levels when the blood sugar drops again. Thanks again for referring this patient. I will be following this patient with you. MD SHARONDA Ching/LEELEEL /[id number]
[2020-01-05] VITALS (14 sets, daily range): BP systolic 93–133; BP diastolic 32–50
--- NOTE | 2020-01-05 03:40 | Progress Note ---
DATE: 01/04/2020 AGE: 84-year-old female. CONSULTANTS: 1. Dr. Ramirez with ID. 2. Dr. Howell with Urology. 3. Dr. Reddy, mother repairer. 4. Dr. Torres, Endocrinology. SUBJECTIVE: The patient remains lethargic. Temperature is improved, but noted to have very low blood sugar in the 40s. She was started on D20 to keep her blood sugar up. We will continue to monitor in IMCU. She denies any chest pain, very lethargic, and unable to provide any further information. PHYSICAL EXAMINATION: VITAL SIGNS: Temperature 99.6, pulse is 72, respirations 18, blood pressure 127/106, pulse ox 100% on 15 L non-rebreather. GENERAL: Fatigue and lethargic. HEENT: Normocephalic, atraumatic. NECK: Supple. LUNGS: Decreased breath sounds. CARDIOVASCULAR: Regular rate and rhythm. GI: Soft and nontender. Obese. NEUROLOGIC: Lethargic, altered mental status. MUSCULOSKELETAL: Moves all extremities. Right-sided weakness from previous stroke. SKIN: Dry with bruising in the upper extremities, old. PSYCH: Calm. LABORATORY DATA: WBC 12.49, hemoglobin 9.2, hematocrit 30.3, platelet 81. Sodium 146, creatinine 1.2, BUN is 32, glucose 63, lactic acid 1.1, ammonia 98. BNP is 223. TSH 12.917, free T4 is 101. UA with large leukocyte esterase, wbc greater than 50K and many bacteria. Urine culture is pending. Repeat CT brain shows no acute intracranial abnormalities. No changes since CT on 01/01/2020. IMPRESSION AND PLAN: 1. Altered mental status, likely metabolic encephalopathy. CT brain and MRI negative for acute process. ID has been consulted for possible infection. She is off cefepime that may be the cause of her altered mental status. 2. Recent E. coli and Pseudomonas aeruginosa urinary tract infection. Repeat UA shows large leukocyte esterase, urine culture is pending. CT abdomen showed bilateral hydronephrosis and bladder distention. Puente has been placed per Urology and irrigating q. shift. Pending urine culture. 3. Hypoxia. She is on non-rebreather mask. Pulmonary has been consulted. Chest x-ray shows cardiomegaly with pulmonary edema and moderate left and trace right pleural effusion. Patchy opacification of the bilateral lung bases, left more than the right. Antibiotics per ID. 4. Hypertension. We will treat as needed as blood pressure is on the low side. 5. Hypothyroidism. We will change Synthroid p.o. to IV 150 mcg as she is lethargic to take anything p.o. TSH today is 12.9. Endocrinology has been consulted. 6. Hypoglycemia with history of diabetes. Glimepiride and sliding scale held and started on D20 to increase her sugars. We will monitor blood sugar regularly and Endocrinology on the case. 7. High cholesterol. 8. History of cerebrovascular accident with residual right-sided weakness. We will continue aspirin and statin once she starts p.o. 9. Chronic anemia. We will continue to monitor. 10. Diastolic congestive heart failure. Chest x-ray has been noted. We will monitor closely. 11. Acute kidney injury. Creatinine is 1.2. Likely due to poor p.o. intake. We will continue to monitor. 12. Deep venous thrombosis prophylaxis. Lovenox subcu. Plan is to continue monitoring in IMCU, monitor sugars closely. We will defer antibiotics to ID. Dictated by KAILA Mattson Rocio Alvarez MD MY/MODL /[id number]
[2020-01-05 04:58] LABS: BASOPHILS % 0.3 % (0.0-1.0); EOSINOPHILS # (AUTO) 0.2 (0.0-0.4); EOSINOPHILS % 1.7 % (0.0-6.0); LYMPHOCYTES # (AUTO) 0.8 (1.0-3.2); LYMPHOCYTES % 7.8 % (18.0-39.1); MEAN CORPUSCULAR HEMOGLOBIN 27.3 pg (28-32); MEAN CORPUSCULAR HGB CONC 30.4 g/dL (31-35); MONOCYTES # (AUTO) 0.9 (0.2-0.8); MONOCYTES % 8.7 % (4.4-11.3); NEUTROPHILS # (AUTO) 8.5 (2.1-6.9); NEUTROPHILS % 80.5 % (38.7-80.0); RED BLOOD COUNT 2.89 x10e6/uL (3.6-5.1); RED CELL DISTRIBUTION WIDTH 19.8 % (11.7-14.4)
[2020-01-05 05:08] LABS: HEMOGLOBIN 7.9 g/dL (12.0-16.0); PLATELET COUNT 64 x10e3/uL (140-360)
[2020-01-05 05:25] LABS: ALBUMIN 2.2 g/dL (3.5-5.0); ALBUMIN/GLOBULIN RATIO 0.9 (0.8-2.0); ANION GAP 8.9 mmol/L (8-16); CALCIUM 7.6 mg/dL (8.4-10.2); CREATININE, SERUM 1.92 mg/dL (0.57-1.11); POTASSIUM 3.9 mmol/L (3.5-5.1)
[2020-01-05] MEDS: DEXTROSE 20% 500 ML IV SCH ×2 (06:38→13:03)
[2020-01-05] MEDS: INSULIN REGULAR, HUMAN 100 UNIT/1 ML 3ML VIAL SQ SCH ×4 (07:30→21:00)
--- NOTE | 2020-01-05 08:54 | NUR ---
Holding skilled PT services since patient is moved to higher level of care ( From 202 to 198). please write new PT orders when appropriate.Thank you Addendum: 01/05/20 at 0855 by Ivan li PT Amended: Links added.
[2020-01-05] MEDS ORDERED: LEVOTHYROXINE SODIUM 100 MCG/VIAL IV SCH (09:00)
--- NOTE | 2020-01-05 10:57 | NUR ---
INFECTIOUS DISEASE PROGRESS NOTE DR. DINESH MUJICA HISTORY OF PRESENT ILLNESS: The patient is an 84-year-old white Latin-M[place] female, who has history of hypertension, hypercholesteremia, congestive heart failure, CVA right-sided weakness, left side vision loss, diabetes mellitus, and neuropathy, comes into the emergency room with weakness, slurred speech, not feeling well. The patient was recently in the hospital with UTI. She was given IV antibiotic, details are not available, but she is coming back with the above. LABORATORY DATA: reviewed ROS: Change in condition according to nurse, facial droop, slurred and not able to eat. PHYSICAL EXAMINATION: HEENT: Normocephalic, not pale, not icteric. NECK: Supple. no JVD CHEST: Crackles bilateral. symmetric expansion HEART: S1-S2. no rub ABDOMEN: Soft. Bowel sounds present. EXTREMITIES: No edema. no joint swelling SKIN: There is no rash. dry IMPRESSION AND PLAN: Aspiration PNA Slurred Speech Weakness CHF get CT brain w.o contrast keep pt NPO Zosyn IV x5 days get stat CXR notify primary team Nydia Liang MSN, INFORMATION SECURITY SPECIALIST, AGACNP-BC examined with Dr. Dinesh Mujica
--- NOTE | 2020-01-05 11:17 | NUR ---
patient is DNR
[2020-01-05] MEDS ORDERED: PIPERACILLIN/TAZO 2.25 GM 50 ML IV SCH (11:30)
[2020-01-05] MEDS ORDERED: FLUCONAZOLE 200 MG/100 ML 100 ML IV SCH (12:00)
--- NOTE | 2020-01-05 12:42 | Diagnostic Imaging Report ---
TECHNIQUE: Frontal view of the chest. INDICATION: ^r/o aspiration PNA ^[id number] ^[id number] COMPARISON: Prior day. DISCUSSION: Limited evaluation due to portable technique. Lines and hardware: Stable. Heart and mediastinum: Mild cardiomegaly and central vascular congestion are noted. Lungs and pleura: There are multifocal interstitial and alveolar airspace opacities with more consolidative appearance at the left lung base. Patchy airspace opacities are also noted at the right lung base. Blunting of the costophrenic angles is noted. Central vascular congestion is noted. Soft tissues and bones: No acute abnormality. Advanced degenerative changes of the right shoulder joint are stable. IMPRESSION: Multifocal patchy and interstitial airspace opacities with a consolidation at the left lung base and ill-defined opacities at the right lung base. Findings are concerning for multifocal pneumonia, aspiration not excluded. Cardiomegaly and central vascular congestion are noted, possibly related to a component of fluid overload. Signed by: Mikhail Garza MD on 01/05/2020 12:39 PM
--- NOTE | 2020-01-05 12:42 | Progress Note ---
DATE: 01/05/2020 SUBJECTIVE: The patient is more lethargic today. PHYSICAL EXAMINATION: VITAL SIGNS: The blood pressure is 133/34, saturation is 100% on 15 L. Respiratory rate is 30 to 40, and the pulse is 58. HEENT: No facial swelling or erythema. LYMPHATIC: No submandibular, cervical, or supraclavicular adenopathy. CARDIAC: Regular rate and rhythm. Normal S1, S2. LUNGS: Auscultation of lungs shows decreased breath sounds in the bases. ABDOMEN: Soft, nontender. There is no rebound or guarding. EXTREMITIES: 1 to 2+ leg edema. LABORATORY DATA: White blood cell count is 10.6 and hemoglobin is 7.9. The platelet count is 64,000. The BUN to creatinine ratio is 39 to 1.92. The other electrolytes within normal limits. The albumin is 2.2. IMPRESSION: 1. Metabolic encephalopathy. 2. Urinary tract infection with sepsis, present on admission. 3. Persistent hypoglycemia. 4. Hypertension. 5. Hypothyroidism. 6. Prior cerebrovascular accident. 7. Acute kidney failure. PLAN: 1. Continue current antibiotics. 2. Continue to monitor blood sugars and adjust as needed. 3. Family is coming today. They have opted for DNR status. They will consider palliative care. Darion Reddy MD [facility] /[id number]
[2020-01-05] MEDS ORDERED: MORPHINE SULFATE INJ 4 MG/ML INJ 1ML IV PRN (15:30)
[2020-01-05] MEDS ORDERED: MORPHINE SULFATE 2 MG/ML SYR 1ML IV PRN (15:30)
--- NOTE | 2020-01-05 19:30 | NUR ---
Pt. lethargic. Oxygen on 6L per nasal cannula. Respirations are even and unlabored. Triple lumen central line to her R internal jugular is patent and intact. No redness or edema noted at site. Midline to her L upper arm is patent and intact. No redness or edema noted at site. Puente catheter is patent and intact draining juan carlos urine.
--- NOTE | 2020-01-05 20:53 | Progress Note ---
DATE: 01/05/2020 CONSULTANTS: 1. Dr. Ramirez, ID. 2. Dr. Reddy, congressional district aide. 3. Dr. Howell, Urology. 4. Dr. Torres, Endocrinology. SUBJECTIVE: The patient remains in IMCU, more lethargic and hypoxic. Currently on nonrebreather mask. Discussed with and daughter, Bell, regarding the patient's condition. At this point, they would like to make her DNR and Palliative has been consulted and would like to have all medications discontinued, except for oxygen. PHYSICAL EXAMINATION: VITAL SIGNS: Temperature 97.7, pulse is 54, respirations 26, blood pressure 115/37, pulse ox is 99% on 15 L nonrebreather. GENERAL: Fatigue and lethargic. HEENT: Normocephalic and atraumatic. NECK: Supple. LUNGS: Decreased breath sounds. CARDIOVASCULAR: Bradycardia. Regular rate. GI: Soft and nontender. Obese. NEUROLOGIC: Lethargic, altered mental status. MUSCULOSKELETAL: Moves all extremities. Right-sided weakness from previous stroke. SKIN: Dry and some bruising in the upper extremities. PSYCH: Calm. LABORATORY DATA: WBC 10.60, hemoglobin 7.9, hematocrit 26.0, and platelets 64. Sodium 138, potassium 3.9, BUN 39, creatinine 1.92, estimated GFR is 25. Urine culture shows yeast. Chest x-ray shows multifocal patchy and interstitial airspace opacities with consolidation at the left lung base and ill-defined opacities at the right lung base. Findings are concerning for multifocal pneumonia or aspiration not excluded. IMPRESSION: 1. Metabolic encephalopathy. CT brain and MRI brain were negative for acute process. ID has been consulted. Chest x-ray noted with multifocal pneumonia. O2 as needed. Zosyn was started, but now discontinued as she is comfort care. 2. Recent Escherichia coli and Pseudomonas aeruginosa urinary tract infection. Repeat urine culture shows yeast. She was given fluconazole x1. CT abdomen shows bilateral hydronephrosis and bladder distention. Puente is in place and Urology is consulted. 3. Hypoxia due to aspiration pneumonia. Continue nonrebreather mask. Cutting And Printing Machine Operator consulted. Chest x-ray noted with patchy opacities. We will discontinue all antibiotics as discussed with family to keep her comfort care. 4. Hypertension, now hypotensive. We will monitor. 5. Hypothyroidism. Discontinue p.o. Synthroid. She is lethargic. 6. Hypoglycemia with history of diabetes. Oral hypoglycemics were discontinued and was started on D20 per grinding and polishing laborer. We will now discontinue fluids per family request. 7. High cholesterol. 8. History of cerebrovascular accident with right-sided residual weakness. 9. Chronic anemia. 10. Diastolic congestive heart failure. 11. Acute kidney injury. 12. Deep vein thrombosis prophylaxis, Lovenox discontinued. PLAN: Palliative was consulted, discussed with and daughter, who wished to keep the patient comfortable. They would like all medications and fluids discontinued except for oxygen. We will discontinue medications except for morphine, Tylenol for fever, and D50. Case management was consulted for hospice arrangement. Dictated by KAILA Mattson Rocio Alvarez MD MY/MODL /[id number]
[2020-01-06] VITALS (9 sets, daily range): BP systolic 75–138; BP diastolic 31–88
[2020-01-06] MEDS ORDERED: LEVOTHYROXINE SODIUM 125 MCG TAB PO SCH (06:00)
[2020-01-06] MEDS ORDERED: LEVOTHYROXINE SODIUM 100 MCG TAB PO SCH (06:00)
--- NOTE | 2020-01-06 10:35 | NUR ---
SPOKE WITH DAUGHTER BECAUSE FATHER IS EXTREMELY HARD OF HEARING, DEANGELO STATES SHE WILL SPEAK WITH HER DAD BUT OF RIGHT NOW HE HAS NOT MADE UP HIS MIND ABOUT HOSPICE. SHE STATES HE CANNOT TAKE CARE OF HER AT HOME, GAVE OPTIONS OF INPATIENT HOSPICE AND LOCAL IF WANT OT PAY ROOM AND BOARD FOR PLACEMENT, SHE STATS HE WILL ABSOLUTELY NOT ALLOW HER TO GO TO A ALF. SO IT IS EITHER INPATIENT OR HOME WITH 24 HOURS CARE. WILL TRY TO CATCH HIM HERE AT HOSPITAL TO SPEAK WITH HIM. SHE WILL LET HIM KNOW I CALLED AND CALL ME BACK IF HE DECIDED BEFORE HE COMES TO THE HOSPITAL.
--- NOTE | 2020-01-06 12:06 | NUR ---
SPOKE WITH , HE WANTS [facility]. CALLED REP AND THEY WILL COME ASSESS THE PT AND CONTACT FAMILY
--- NOTE | 2020-01-06 12:47 | Progress Note ---
DATE: 01/06/2020 CONSULTANTS: 1. Dr. Ramirez, ID. 2. Dr. Reddy, realtime court reporter. 3. Dr. Howell, Urology. 4. Dr. Torres, Endocrinology. SUBJECTIVE: The patient remains in IMCU, off all medication except oxygen via nasal cannula. She is lethargic and does not appear to be in any distress. PHYSICAL EXAMINATION: VITAL SIGNS: Temperature 100.6, pulse is 72, respirations 19, blood pressure 125/73, and pulse ox is 100% on 6 L of nasal cannula. GENERAL: Fatigue and lethargic. HEENT: Normocephalic and atraumatic. NECK: Supple. LUNGS: With decreased breath sounds and some wheezing in the lower lobes. CARDIOVASCULAR: Regular rate and rhythm. GI: Soft and nontender. Obese. NEUROLOGIC: Altered mental status. MUSCULOSKELETAL: Right-sided weakness from previous stroke. Trace edema. SKIN: Dry and some bruising in upper extremities. PSYCH: Calm. LABORATORY DATA: No labs today. IMPRESSION: 1. Metabolic encephalopathy, likely due to urinary tract infection. CT brain and MRI brain were negative for acute process. ID has been consulted. She is off all antibiotics per family request. 2. Recurrent Escherichia coli and Pseudomonas aeruginosa urinary tract infection. Urine culture showed yeast infection. She was given one time dose of fluconazole. 3. Hypoxia due to likely aspiration pneumonia. Chest x-ray noted. Pulmonology is on the case. Chest x-ray with patchy opacities. Off antibiotics. 4. Hypertension, now hypotensive. We will monitor. 5. Hypothyroidism. Off Synthroid due to comfort care. 6. Hypoglycemia with history of diabetes. She is n.p.o. and all medications discontinued. 7. High cholesterol. 8. History of cerebrovascular accident with residual right-sided weakness. 9. Chronic anemia. 10. Diastolic congestive heart failure. 11. Acute kidney injury. PLAN: The patient is off all her medications except for morphine for pain, Tylenol for fever, and oxygen for comfort per POA's request. CM has been consulted for hospice care arrangement. Dictated by KAILA Mattson Rocio Alvarez MD MY/MODL /[id number]
--- NOTE | 2020-01-06 18:25 | NUR ---
Handoff report given to [facility] Nurse, per hospice nurse leave Puente in place, midline and IJ TLC in place.
--- NOTE | 2020-01-06 18:45 | NUR ---
Received call from [facility] informed us ambulance will be arriving at 22:00.
--- NOTE | 2020-01-07 01:50 | Discharge Summary ---
PRIMARY CARE PHYSICIAN: Dr. Yoan Long at [facility]. FINAL DISCHARGE DIAGNOSES: 1. Metabolic encephalopathy likely due to urinary tract infection/aspiration pneumonia. 2. Recurrent Escherichia coli and Pseudomonas aeruginosa urinary tract infection. 3. Hypoxia due to likely aspiration pneumonia. 4. Hypertension. 5. Hypothyroidism. 6. Hypoglycemia with history of diabetes. 7. High cholesterol. 8. History of cerebrovascular accident with right-sided residual. 9. Chronic anemia. 10. Diastolic congestive heart failure. CONSULTANTS: 1. Dr. Reddy, pomology teacher. 2. Dr. Ramirez, ID. 3. Dr. Howell, Urology. 4. Dr. Torres, Endocrinology. PROCEDURES: Central line placement. HISTORY: Per HPI. HOSPITAL COURSE: This is an 84-year-old female, who presented to the ER with complaints of altered mental status, generalized weakness, and slurred speech. CT and MRI of the brain were negative for acute process. ID was consulted for evaluation of infection. She was having hypothermia with a temp as low as 91 degree Fahrenheit. She was initially started on cefepime for her recent E. coli and Pseudomonas aeruginosa UTI. She then started having hypoxia. A chest x-ray was noted with patchy opacities. Home Care Administrator is consulted and placed non-rebreather. Urine and blood cultures were sent. Blood culture was negative and urine culture showed yeast. She was given fluconazole IV, but the patient's mentation and vitals continued to decline. Her spouse, who is a POA decided to with real care and she is placed on DNR. All medications were discontinued and except for morphine and oxygen to keep her comfortable. She was monitored closely and will be transferring to inpatient hospice at [facility] for further management. PHYSICAL EXAMINATION: VITAL SIGNS: Temperature 98.6, pulse is 68, respirations 18, blood pressure 128/49, pulse ox is 97% on 6 L nasal cannula. GENERAL: Fatigue and lethargic. HEENT: Normocephalic, atraumatic. NECK: Supple. LUNGS: With decreased breath sounds and some wheezing in the lower lobes. CARDIOVASCULAR: Regular rate and rhythm. GI: Soft and nontender, and obese. NEUROLOGIC: Altered mental status. MUSCULOSKELETAL: Right-sided weakness from previous stroke. Trace edema noted. SKIN: Dry. PSYCH: Calm. CONDITION AT DISCHARGE: Fair. DISCHARGE MEDICATIONS: See medication reconciliation list. FOLLOWUP: Follow up with [facility]. TIME SPENT: Total discharge time 32 minutes. Dictated by Daxa Feldman, KAILA Mavisching Mook Alvarez MD MY/MODL /[id number] cc: Yoan Long MD [facility]
== END 2020-01-06 23:00 | disposition hospice, inpatient (51) | DRG 698 ==
LOC: ER 18:50 → ERHOLD 21:37 → MED/SURG2 21:55 → OBSVTOIN 01-03 09:13 → IMCU 01-03 12:50
PROVIDERS: ADMIT Internal Medicine; ATTEND Internal Medicine
PROC: 02HV33Z Insertion of Infusion Device into Superior Vena Cava, Percutaneous Approach (ICD-10-PCS; principal; 2020-01-04)
PROC: B548ZZA Ultrasonography of Superior Vena Cava, Guidance (ICD-10-PCS; 2020-01-04)
DX: T83.511A Infection and inflammatory reaction due to indwelling urethral catheter, initial encounter (principal); A41.9 Sepsis, unspecified organism; G93.41 Metabolic encephalopathy; G92 Toxic encephalopathy; J69.0 Pneumonitis due to inhalation of food and vomit; B37.49 Other urogenital candidiasis; I69.351 Hemiplegia and hemiparesis following cerebral infarction affecting right dominant side; I50.32 Chronic diastolic (congestive) heart failure; N13.30 Unspecified hydronephrosis; N17.9 Acute kidney failure, unspecified; N39.0 Urinary tract infection, site not specified; E11.649 Type 2 diabetes mellitus with hypoglycemia without coma; B96.5 Pseudomonas (aeruginosa) (mallei) (pseudomallei) as the cause of diseases classified elsewhere; B96.20 Unspecified Escherichia coli [E. coli] as the cause of diseases classified elsewhere; H54.62 Unqualified visual loss, left eye, normal vision right eye; I69.398 Other sequelae of cerebral infarction; I11.0 Hypertensive heart disease with heart failure; Z85.22 Personal history of malignant neoplasm of nasal cavities, middle ear, and accessory sinuses; E66.01 Morbid (severe) obesity due to excess calories; E03.9 Hypothyroidism, unspecified; Z82.49 Family history of ischemic heart disease and other diseases of the circulatory system; Z88.5 Allergy status to narcotic agent; Z91.041 Radiographic dye allergy status; E78.00 Pure hypercholesterolemia, unspecified; D64.9 Anemia, unspecified; N32.89 Other specified disorders of bladder; N31.9 Neuromuscular dysfunction of bladder, unspecified; N28.1 Cyst of kidney, acquired; D69.6 Thrombocytopenia, unspecified; T38.3X5A Adverse effect of insulin and oral hypoglycemic [antidiabetic] drugs, initial encounter; T36.1X5A Adverse effect of cephalosporins and other beta-lactam antibiotics, initial encounter; R09.02 Hypoxemia; Z66 Do not resuscitate; Z68.37 Body mass index [BMI] 37.0-37.9, adult; Z51.5 Encounter for palliative care; Z79.82 Long term (current) use of aspirin; Z79.84 Long term (current) use of oral hypoglycemic drugs
CPT/HCPCS: 36415; 36600; 51700; 70450; 70551; 71045; 74176; 80048; 80053; 81001; 82140; 82533; 82550; 82553; 82805; 82948; 83036; 83605; 83880; 84439; 84443; 84484; 84681; 85025; 85379; 85610; 87040; 87086; 93005; 96361; 96374; 97139; 99284; G0378; J0692; J1450; J1650; J1940; J2001; J2543; J7030; J7050; J7070; J7799